=== PATIENT | male | born 1975 | race Two or more races ===

== ENCOUNTER 2020-05-15 07:41 | Outpatient (REF) | payer MEDICARE, MEDICAID, SELFPAY ==
[2020-05-15 10:18] LABS: Alanine Aminotransferase 30 U/L (0-40); Albumin Level 4.2 g/dL (3.5-5.0); Alkaline Phosphatase 69 U/L (39-117); Anion Gap 14 (12-20); Aspartate Amino Transferase 17 U/L (5-37); Bilirubin Total 0.7 mg/dL (0.0-1.0); Blood Urea Nitrogen 17 mg/dL (9-16); Calcium 8.8 mg/dL (8.4-10.2); Carbon Dioxide 25 mmol/L (22-29); Chloride 106 mmol/L (96-108); Cholesterol 165 mg/dL; Estimated Glomerular Filt Rate > 60; Glucose Fasting 240 mg/dL (60-99); HDL Cholesterol 34 mg/dL; LDL Cholesterol Calculated 90 mg/dl; Potassium 4.8 mmol/l (3.3-5.1); Sodium 140 mmol/L (135-145); Total Protein 6.6 g/dL (6.5-8.0); Triglycerides 206 mg/dL
[2020-05-15 10:44] LABS: Creatinine Urine 81.31 mg/dL; Microalbumin Urine < 5.0 mg/L
== END 2020-05-15 07:42 | disposition home or self-care (01) ==
LOC: HO.LAB 07:41
PROVIDERS: PCP Internal Medicine; Visit Provider Internal Medicine
DX: E11.9 Type 2 diabetes mellitus without complications (principal)
CPT/HCPCS: 80053; 80061; 82043

== ENCOUNTER → 2020-05-19 15:04 | Outpatient (BNVA) | payer MEDICARE, MEDICAID, SELFPAY | PROVIDERS: PCP Internal Medicine; Referring Provider Internal Medicine; Visit Provider Internal Medicine Endocrinology, Diabetes & Metabolism | DX: E11.65 Type 2 diabetes mellitus with hyperglycemia (principal); E78.5 Hyperlipidemia, unspecified; I10 Essential (primary) hypertension; E66.9 Obesity, unspecified; Z88.8 Allergy status to other drugs, medicaments and biological substances; Z79.82 Long term (current) use of aspirin; Z79.4 Long term (current) 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; Z79.899 Other long term (current) drug therapy | CPT/HCPCS: 99212 ==

== ENCOUNTER 2020-05-26 16:01 | Emergency (ER) | payer MEDICARE, MEDICAID, SELFPAY ==
[2020-05-26 17:38] VITALS: BP 126/73; PULSE 87; RESP 20; TEMP 36; O2SAT 98; BMI 35.6
--- NOTE | 2020-05-26 18:36 | XR_ITS ---
EXAMINATION: XR KNEE, RIGHT CLINICAL INFORMATION: Pain. COMPARISON: Right knee 01/08/2018 TECHNIQUE: Four views of the right knee. FINDINGS: Bones and soft tissues are normal. No fracture or joint effusion. Alignment is anatomic. Joint spaces are well maintained. No abnormal soft tissue calcification. XR/XR knee RT 2V IMPRESSION: Normal right knee.
[2020-05-26 19:23] VITALS: BP 111/71; PULSE 77; RESP 17; TEMP 36.1; O2SAT 99
--- NOTE | 2020-05-26 19:26 | ED_ITS ---
HPI - Extremity Problem General Chief complaint: Extremity Problem Stated complaint: knee pain Time Seen by Provider: 05/26/20 18:35 Source: patient Mode of arrival: ambulatory Limitations: no limitations History of Present Illness HPI Narrative: States history of chronic right knee pain he had surgery about 20+ years ago received cortisone injections which he has not done so in several months has called orthopedics unable to obtain appointment finally has an appointment on Monday in the meantime having more pain. He denies any calf pain no recent injuries. MD Complaint: extremity pain Onset (ago): month(s) Pain Consistency: intermittent Location: right Quality: aching Radiation: none Relieving factors: immobilization, elevation and other (Knee brace) Exacerbating factors: weight bearing Associated symptoms: denies other symptoms Context: recent travel Related Data Home Medications Medication Instructions Recorded Confirmed aspirin 81 mg tablet,delayed 81 mg PO DAILY 04/11/20 05/19/20 release atorvastatin 80 mg tablet 0 mg PO 04/11/20 05/19/20 blood sugar diagnostic #10 ea 04/11/20 05/19/20 lancets 28 gauge #100 ea 04/11/20 05/19/20 lisinopril 2.5 mg tablet 0 mg PO 04/11/20 05/19/20 metformin 500 mg tablet,extended 1,000 mg PO BID 04/11/20 05/19/20 release 24 hr omeprazole 20 mg capsule,delayed 20 mg PO DAILY 04/11/20 05/19/20 release pen needle, diabetic 32 gauge x #50 ea 04/11/20 05/19/20 sucralfate 100 mg/mL oral 10 ml PO BID 04/11/20 05/19/20 suspension Previous Rx's Medication Instructions Recorded insulin aspart U-100 100 unit/mL See Rx Instructions SUBCUT TID 30 05/19/20 (3 mL) subcutaneous pen Days #30 ml insulin degludec 200 unit/mL (3 80 unit SUBCUT QAM 30 Days #18 ml 05/19/20 mL) subcutaneous pen Allergies Allergy/AdvReac Type Severity Reaction Status Date / Time ibuprofen [From MOTRIN] Allergy Intermediate HIVES, Rash Unverified 04/02/20 15:58 Review of Systems Review of Systems: Constitutional: No Weight loss, No Fever, No Chills ENT/Mouth: No Hearing loss, No Ear Pain, No Nasal Congestion, No Sinus Pain, No Hoarseness, No sore throat, No Rhinorrhea, No Swallowing Difficulty Eyes: No Eye Pain, No Swelling, No Redness, No Foreign Body Cardiovascular: No Chest Pain, No SOB, No Dyspnea on Exertion, No Orthopnea, No Edema, No Palpitations Respiratory: No Cough, No Sputum, No Wheezing, No Smoke Exposure, No Dyspnea Gastrointestinal: No Nausea, No Vomiting, No Diarrhea, No Constipation, No abdominal Pain, No Hematochezia, No Melena Genitourinary: no irregular bleeding, No Dysuria, No Urinary Frequency, No Hematuria, No Urinary Incontinence, No Urgency, No Flank Pain, No Urinary Flow Changes, No Hesitancy Musculoskeletal: No joint pain, No Myalgias, No Joint Swelling Skin: No Skin Lesions, No rash Neuro: No Weakness, No Numbness, No Paresthesias, No Loss of Consciousness, No Dizziness, No Headache Psych: No Anxiety/Panic, No Depression, No SI/HI/AH/VH, No Social Issues, Heme/Lymph: No Bruising, No Bleeding,No Lymphadenopathy Endocrine: No Polyuria, No Polydipsia, No Temperature Intolerance Yes all other systems are reviewed and are negative [facility] Past Medical History Medical History (Updated 05/26/20 @ 19:27 by Stan Orozco NP) Diabetes type 2, uncontrolled Dyslipidemia 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 Obesity (BMI 30-39.9) Surgical History History of ear surgery History of surgery on arm Hx of colonoscopy Hx of esophagogastroduodenoscopy Hx of knee surgery Family History Family History (Updated 05/18/20 @ 12:16 by Xochitl Contreras LPN) Father Diabetes Mother Diabetes Social History Social History (Updated 05/18/20 @ 12:17 by Xochitl Contreras LPN) Smoking Status: Never smoker Use of substances other than those prescribed or required for medical reasons: Yes Substance Use Type: Marijuana Advance Directives: No Advance Directives Information Provided: No Physical Exam Vital Signs: Vital Signs: Last Vital Signs Temp 97.0 F 05/26/20 19:23 Pulse 77 05/26/20 19:23 Resp 17 05/26/20 19:23 BP 111/71 05/26/20 19:23 Pulse Ox 99 05/26/20 19:23 Body Mass Index 35.6 Reviewed Const: General: cooperative and healthy appearing; No acute distress or intoxicated appearing Nutritional Appearance: average body habitus Orientation/consciousness: patient oriented x3 HENMT: Head: Yes normal to inspection Ears: hearing grossly normal bilaterally Eyes: General: appearance normal, both eyes and all related structures Visual Richardson: normal visual richardson by confrontation Chest: Chest palpation & inspection: normal inspection of the chest Resp: Effort & Inspection: normal respiratory effort Cardio: Jugular venous distension: no JVD Skin: General skin exam: no rashes or lesions noted Neuro: General: patient oriented x3 Extrem: Other: Negative Homans Negative drawer test General: Yes normal to inspection Left lower extremity: normal to inspection, full ROM and normal capillary refill MDM - Extremity (Nontraumatic) Imaging Data Knee pain: Radiologist's impression: [address] [address] XRay Report Signed Patient: Onesimo Orta DMR#: [id number] : 1975Acct:[id number] Age/Sex: 44 / MADM Date: 05/26/20 Loc: .ED Attending Dr: Ordering Physician: Stan Orozco NP Date of Service: 05/26/20 Procedure(s): XR knee RT 2V Accession Number(s): [id number] cc: Stan Orozco NP~ EXAMINATION: XR KNEE, RIGHT CLINICAL INFORMATION: Pain. COMPARISON: Right knee 01/08/2018 TECHNIQUE: Four views of the right knee. FINDINGS: Bones and soft tissues are normal. No fracture or joint effusion. Alignment is anatomic. Joint spaces are well maintained. No abnormal soft tissue calcification. XR/XR knee RT 2V IMPRESSION: Normal right knee. Dictated By:JOE PHOENIX MD Signed By:<Electronically signed by JOE PHOENIX MD in OV>05/26/201906 DD/ 35 TD/TT: Extras Casting Director: MARCY Discharge Plan Discharge Clinical Impression: Arthralgia Qualifiers: Joint pain location: knee Laterality: right Qualified Code(s): M25.561 - Pain in right knee Patient Disposition: Home, Self-Care Instructions: Arthralgia (ED) Additional Instructions: Supportive brace as reviewed Use her cane as instructed Naproxen or acetaminophen [id number] per label instructions Follow up with her orthopedics for further evaluation today Treat any concerns or worsening symptoms Thank you Prescriptions: No Action insulin degludec 200 unit/mL (3 mL) insulin pen 80 unit subcut QAM 30 Days Qty: 18 RF: 4 insulin aspart U-100 100 unit/mL (3 mL) insulin pen See Rx Instructions subcut TID 30 Days Qty: 30 RF: 4 omeprazole 20 mg capsule,delayed release(DR/EC) 20 mg PO DAILY RF: 0 (DME) lancets 28 gauge misc See Rx Instructions ea topical QID Qty: 100 RF: 0 (DME) pen needle, diabetic 32 gauge x 5/32 needle See Rx Instructions ea subcut .MEDSUPPLY Qty: 50 RF: 0 (DME) FreeStyle Lite Strips Strip See Rx Instructions ea Not Applicable QID Qty: 10 RF: 0 lisinopril 2.5 mg tablet 0 mg PO RF: 0 atorvastatin 80 mg tablet 0 mg PO RF: 0 metformin 500 mg tablet extended release 24 hr 1,000 mg PO BID RF: 0 aspirin 81 mg tablet,delayed release (DR/EC) 81 mg PO DAILY RF: 0 sucralfate 100 mg/mL suspension 10 ml PO BID RF: 0 Referrals: Chris Ashby MD [Physician] - 1 week Stand Alone Forms: Work/School Release
== END 2020-05-26 20:00 | disposition home or self-care (01) ==
PROVIDERS: Emergency Provider Emergency Medicine; PCP Internal Medicine
DX: M25.561 Pain in right knee (principal); I10 Essential (primary) hypertension; Z79.899 Other long term (current) drug therapy
CPT/HCPCS: 73560; 99283; 99284

== ENCOUNTER → 2020-05-28 13:03 | Outpatient (BNVA) | payer MEDICARE, MEDICAID, SELFPAY | PROVIDERS: PCP Internal Medicine; Visit Provider Orthopaedic Surgery | DX: M17.11 Unilateral primary osteoarthritis, right knee (principal); M25.461 Effusion, right knee | CPT/HCPCS: 20610; 99212; J1100 ==

== ENCOUNTER → 2020-07-01 15:38 | Outpatient (BNVA) | payer MEDICARE, MEDICAID, SELFPAY | PROVIDERS: Visit Provider Internal Medicine | DX: J45.909 Unspecified asthma, uncomplicated (principal); G47.33 Obstructive sleep apnea (adult) (pediatric); E66.9 Obesity, unspecified; Z68.36 Body mass index [BMI] 36.0-36.9, adult; Z79.51 Long term (current) use of inhaled steroids; Z71.3 Dietary counseling and surveillance | CPT/HCPCS: 99212 ==

== ENCOUNTER → 2020-09-02 15:18 | Outpatient (BNVA) | payer MEDICARE, MEDICAID, SELFPAY | PROVIDERS: PCP Internal Medicine; Visit Provider Internal Medicine | DX: E66.9 Obesity, unspecified (principal); J45.909 Unspecified asthma, uncomplicated; G47.33 Obstructive sleep apnea (adult) (pediatric) | CPT/HCPCS: 99212 ==

== ENCOUNTER → 2021-01-26 14:55 | Outpatient (BNVA) | payer OTHER, SELFPAY | PROVIDERS: PCP Internal Medicine; Visit Provider Internal Medicine Endocrinology, Diabetes & Metabolism | DX: E11.65 Type 2 diabetes mellitus with hyperglycemia (principal); E78.5 Hyperlipidemia, unspecified; E66.9 Obesity, unspecified; I10 Essential (primary) hypertension; Z79.4 Long term (current) 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 | CPT/HCPCS: 82947; 99212 ==

== ENCOUNTER → 2021-01-28 14:03 | Outpatient (BNVA) | payer OTHER, SELFPAY | PROVIDERS: Visit Provider Orthopaedic Surgery | DX: M79.603 Pain in arm, unspecified (principal) | CPT/HCPCS: 99212 ==

== ENCOUNTER 2021-02-05 05:57 | Outpatient (REF) | payer OTHER, SELFPAY ==
[2021-02-05 06:59] LABS: MANUAL DIFF FLAG NO
[2021-02-05 07:15] LABS: Basophils Percent Auto 0.8 % (0-2); Eosinophils Absolute Auto 0.1 X10*3/uL (0.0-0.4); Eosinophils Percent Auto 2.8 % (0-4); Hematocrit 45.9 % (42-52); Imm Gran Abs Auto 0.01 X10*3/uL (0.00-0.03); Imm Gran Pct Auto 0.2 % (0.0-0.4); Lymphocytes Absolute Auto 1.4 X10*3/uL (1.2-4.9); Lymphocytes Percent Auto 27.7 % (20-40); Mean Corpuscular HGB Conc 32.7 g/dl (31.0-36.0); Mean Corpuscular Hemoglobin 28.6 pg (27.0-33.0); Mean Corpuscular Volume 87.6 fL (80-98); Mean Platelet Volume 12.2 fL (9.4-12.4); Monocytes Absolute Auto 0.5 X10*3/uL (0.1-1.2); Neutrophils Absolute Auto 2.9 X10*3/uL (2.0-8.3); Neutrophils Percent Auto 58.5 % (45-73); Platelet Count 184 X10*3/uL (160-400); Red Blood Count 5.24 X10*6/uL (4.60-5.80); Red Cell Distribution Width 12.5 % (11.0-16.0)
[2021-02-05 08:06] LABS: Alanine Aminotransferase 23 U/L (0-40); Albumin Level 3.9 g/dL (3.5-5.0); Alkaline Phosphatase 76 U/L (39-117); Anion Gap 12 (12-20); Aspartate Amino Transferase 16 U/L (5-37); Bilirubin Direct 0.2 mg/dL (0.0-0.5); Bilirubin Total 0.4 mg/dL (0.0-1.0); Blood Urea Nitrogen 11 mg/dL (9-16); Calcium 9.5 mg/dL (8.4-10.2); Carbon Dioxide 27 mmol/L (22-29); Chloride 108 mmol/L (96-108); Cholesterol 137 mg/dL; Estimated Glomerular Filt Rate > 60; Glucose Random 181 mg/dL (60-115); HDL Cholesterol 29 mg/dL; LDL Cholesterol Calculated 85 mg/dl; Magnesium 1.7 mg/dL (1.6-2.6); Potassium 4.5 mmol/L (3.3-5.1); Sodium 142 mmol/L (135-145); Total Protein 6.3 g/dL (6.5-8.0); Triglycerides 118 mg/dL
[2021-02-05 08:12] LABS: Estimated Average Glucose 280 mg/dL; Hemoglobin A1c % 11.4 %
[2021-02-05 08:18] LABS: Thyroid Stimulating Hormone 1.32 uIU/mL (0.32-4.0)
== END 2021-02-05 05:58 | disposition home or self-care (01) ==
LOC: HO.LAB 05:57
PROVIDERS: PCP Internal Medicine; Visit Provider Internal Medicine Cardiovascular Disease
DX: I50.42 Chronic combined systolic (congestive) and diastolic (congestive) heart failure (principal); E11.9 Type 2 diabetes mellitus without complications; E78.2 Mixed hyperlipidemia
CPT/HCPCS: 36415; 80048; 80061; 80076; 83036; 83735; 84443; 85025

== ENCOUNTER → 2021-02-08 15:40 | Outpatient (BNVA) | payer OTHER, SELFPAY | PROVIDERS: PCP Internal Medicine; Visit Provider Internal Medicine | DX: E66.9 Obesity, unspecified (principal); G47.33 Obstructive sleep apnea (adult) (pediatric); J45.909 Unspecified asthma, uncomplicated | CPT/HCPCS: 99212 ==

== ENCOUNTER → 2021-06-03 15:30 | Outpatient (BNVA) | payer OTHER, SELFPAY | PROVIDERS: PCP Internal Medicine; Visit Provider Internal Medicine | DX: J45.40 Moderate persistent asthma, uncomplicated (principal); G47.33 Obstructive sleep apnea (adult) (pediatric); E11.65 Type 2 diabetes mellitus with hyperglycemia; E78.5 Hyperlipidemia, unspecified; K21.9 Gastro-esophageal reflux disease without esophagitis; E66.9 Obesity, unspecified; Z68.36 Body mass index [BMI] 36.0-36.9, adult; Z83.3 Family history of diabetes mellitus; Z88.8 Allergy status to other drugs, medicaments and biological substances; Z79.4 Long term (current) 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; Z79.84 Long term (current) use of oral hypoglycemic drugs; Z79.899 Other long term (current) drug therapy | CPT/HCPCS: 99212 ==

== ENCOUNTER → 2021-06-04 07:09 | Outpatient (BNVA) | payer OTHER, SELFPAY | PROVIDERS: PCP Internal Medicine; Visit Provider Nurse Practitioner Gerontology | DX: E11.65 Type 2 diabetes mellitus with hyperglycemia (principal); E78.5 Hyperlipidemia, unspecified; E66.9 Obesity, unspecified; I10 Essential (primary) hypertension; Z79.4 Long term (current) 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 | CPT/HCPCS: 82947; 99212 ==

== ENCOUNTER → 2021-07-12 14:46 | Outpatient (BNVA) | payer OTHER, SELFPAY | PROVIDERS: PCP Internal Medicine; Visit Provider Registered Nurse Diabetes Educator | DX: E11.65 Type 2 diabetes mellitus with hyperglycemia (principal); Z79.4 Long term (current) 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 | CPT/HCPCS: 99211 ==

== ENCOUNTER → 2021-07-27 08:47 | Outpatient (BNVA) | payer OTHER, SELFPAY | PROVIDERS: PCP Internal Medicine; Visit Provider Registered Nurse Diabetes Educator | DX: E11.65 Type 2 diabetes mellitus with hyperglycemia (principal) | CPT/HCPCS: 99211 ==

== ENCOUNTER 2021-09-08 06:02 | Outpatient (REF) | payer OTHER, SELFPAY ==
--- NOTE | ~2021-09-08 | XR_ITS ---
EXAMINATION: XR KNEES, STANDING AP XR KNEE, RIGHT CLINICAL INFORMATION: Right knee pain COMPARISON: Radiographs right knee 05/26/2020, 01/07/2018 TECHNIQUE: Standing AP view of both knees is performed along with lateral and axial patella views of the right knee. FINDINGS: Right: There is moderate suprapatellar effusion. Hoffa's fat pad appears normal. Bony mineralization is normal. There is no fracture or dislocation or destructive process. There is borderline narrowing medial knee joint compartment. No subchondral sclerosis or erosive change. No visible chondrocalcinosis. There is lateral spurring of the patella. Left: Borderline narrowing medial knee joint compartment. No subchondral sclerosis or erosive change or chondrocalcinosis. Normal bony mineralization. XR/XR knee standing BI IMPRESSION: Right: -Moderate suprapatellar effusion. -Borderline narrowing medial knee joint compartment. -Lateral patellar spur. Left: -Borderline narrowing medial knee joint compartment.
--- NOTE | ~2021-09-08 | XR_ITS ---
EXAMINATION: XR KNEES, STANDING AP XR KNEE, RIGHT CLINICAL INFORMATION: Right knee pain COMPARISON: Radiographs right knee 05/26/2020, 01/07/2018 TECHNIQUE: Standing AP view of both knees is performed along with lateral and axial patella views of the right knee. FINDINGS: Right: There is moderate suprapatellar effusion. Hoffa's fat pad appears normal. Bony mineralization is normal. There is no fracture or dislocation or destructive process. There is borderline narrowing medial knee joint compartment. No subchondral sclerosis or erosive change. No visible chondrocalcinosis. There is lateral spurring of the patella. Left: Borderline narrowing medial knee joint compartment. No subchondral sclerosis or erosive change or chondrocalcinosis. Normal bony mineralization. XR/XR knee RT 2V IMPRESSION: Right: -Moderate suprapatellar effusion. -Borderline narrowing medial knee joint compartment. -Lateral patellar spur. Left: -Borderline narrowing medial knee joint compartment.
== END 2021-09-08 06:03 | disposition home or self-care (01) ==
LOC: HO.HOSX 06:02
PROVIDERS: Visit Provider Physician Assistant
DX: M25.561 Pain in right knee (principal); M25.461 Effusion, right knee; M25.562 Pain in left knee
CPT/HCPCS: 20610; 73560; 73565; 87071; 87073; 87205; 89060; 99212; J1020

== ENCOUNTER → 2021-09-17 07:20 | Outpatient (BNVA) | payer OTHER, SELFPAY | PROVIDERS: PCP Internal Medicine; Visit Provider Nurse Practitioner Gerontology | DX: E11.65 Type 2 diabetes mellitus with hyperglycemia (principal); E78.5 Hyperlipidemia, unspecified; I10 Essential (primary) hypertension; E66.9 Obesity, unspecified; Z79.4 Long term (current) 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; Z68.36 Body mass index [BMI] 36.0-36.9, adult | CPT/HCPCS: 82947; 99212 ==

== ENCOUNTER → 2021-09-20 12:00 | Outpatient (BNVA) | payer OTHER, SELFPAY | PROVIDERS: PCP Internal Medicine; Visit Provider Registered Nurse Diabetes Educator | DX: E11.65 Type 2 diabetes mellitus with hyperglycemia (principal) | CPT/HCPCS: 99211 ==

== ENCOUNTER 2021-10-04 13:35 | Outpatient (REF) | payer OTHER, SELFPAY ==
[2021-10-04 15:21] LABS: Anion Gap 13 (12-20); Blood Urea Nitrogen 14 mg/dL (9-16); Calcium 9.6 mg/dL (8.4-10.2); Carbon Dioxide 27 mmol/L (22-29); Chloride 102 mmol/L (96-108); Estimated Glomerular Filt Rate > 60; Potassium 4.9 mmol/L (3.3-5.1); Sodium 137 mmol/L (135-145)
[2021-10-04 15:43] LABS: Glucose Random 407 mg/dL (60-115)
== END 2021-10-04 13:36 | disposition home or self-care (01) ==
LOC: HO.LAB 13:35
PROVIDERS: PCP Internal Medicine; Visit Provider Nurse Practitioner Family
DX: E78.2 Mixed hyperlipidemia (principal); I11.0 Hypertensive heart disease with heart failure; I50.42 Chronic combined systolic (congestive) and diastolic (congestive) heart failure
CPT/HCPCS: 36415; 80048

== ENCOUNTER → 2021-10-20 15:17 | Outpatient (BNVA) | payer OTHER, SELFPAY | PROVIDERS: PCP Internal Medicine; Visit Provider Physician Assistant | DX: M10.9 Gout, unspecified (principal) | CPT/HCPCS: 99212 ==

== ENCOUNTER → 2021-10-25 14:30 | Outpatient (BNVA) | payer OTHER, SELFPAY | PROVIDERS: PCP Internal Medicine; Visit Provider Physician Assistant | DX: Z13.89 Encounter for screening for other disorder (principal) | CPT/HCPCS: Q3014 ==

== ENCOUNTER → 2021-11-24 15:31 | Outpatient (BNVA) | payer OTHER, SELFPAY | PROVIDERS: PCP Internal Medicine; Visit Provider Internal Medicine | DX: G47.33 Obstructive sleep apnea (adult) (pediatric) (principal); J45.40 Moderate persistent asthma, uncomplicated; E66.9 Obesity, unspecified; Z68.35 Body mass index [BMI] 35.0-35.9, adult | CPT/HCPCS: 99212 ==

== ENCOUNTER → 2021-11-26 07:43 | Outpatient (BNVA) | payer OTHER, SELFPAY | PROVIDERS: PCP Internal Medicine; Visit Provider Registered Nurse Diabetes Educator | DX: E11.65 Type 2 diabetes mellitus with hyperglycemia (principal) | CPT/HCPCS: 99211 ==

== ENCOUNTER 2022-01-31 06:19 | Outpatient (REF) | payer OTHER, SELFPAY ==
[2022-01-31 07:55] LABS: Anion Gap 12 (12-20); Blood Urea Nitrogen 15 mg/dL (9-16); Calcium 9.2 mg/dL (8.4-10.2); Carbon Dioxide 23 mmol/L (22-29); Chloride 110 mmol/L (96-108); Estimated Glomerular Filt Rate > 60; Glucose Random 194 mg/dL (60-115); Potassium 4.7 mmol/L (3.3-5.1); Sodium 140 mmol/L (135-145)
== END 2022-01-31 06:20 | disposition home or self-care (01) ==
LOC: HO.LAB 06:19
PROVIDERS: Nurse Practitioner Family; Absent Provider Nurse Practitioner Gerontology; PCP Physician Assistant; Visit Provider Physician Assistant
DX: E78.2 Mixed hyperlipidemia (principal); I50.42 Chronic combined systolic (congestive) and diastolic (congestive) heart failure; I10 Essential (primary) hypertension
CPT/HCPCS: 36415; 80048

== ENCOUNTER → 2022-08-02 15:25 | Outpatient (BNVA) | payer OTHER, SELFPAY | PROVIDERS: PCP Physician Assistant; Visit Provider Internal Medicine | DX: R06.00 Dyspnea, unspecified (principal); J45.40 Moderate persistent asthma, uncomplicated; G47.33 Obstructive sleep apnea (adult) (pediatric); E66.9 Obesity, unspecified; Z68.37 Body mass index [BMI] 37.0-37.9, adult; Z86.16 Personal history of COVID-19 | CPT/HCPCS: 99212 ==

== ENCOUNTER 2023-01-25 14:45 | Outpatient (AMB) | payer OTHER, SELFPAY ==
[2023-01-25 14:47] VITALS: BP 108/64; PULSE 87; O2SAT 95; BMI 35.8
--- NOTE | 2023-01-25 14:47 | MHC.PC.OV ---
Vital Signs 01/25/23 14:47 Height 5 ft 9.5 in Weight 246 lb BMI 35.8 BP 108/64 Blood Pressure Location Lt brachial Position Sitting Pulse 87 Pulse Source Pulse Oximeter Pulse Oximetry (%) 95 Oxygen Delivery Method Room Air Intake Visit Reasons: f/u DMII Intake Note: Pt c/o: needs a refill on metformin and concerned that A1C will be high as his sugars have been at home Screwmaker Automatic Required: No Accompanied by: Self / Same As Patient Allergies ibuprofen [From MOTRIN] Allergy (Intermediate, Verified 01/25/23 14:57) HIVES, Rash Medication List - Last Reconciled 01/25/23 by Deejay Gonzalez PA-C albuterol sulfate 90 mcg/actuation 2 puffs inhalation Q4-6H PRN aspirin (Adult Aspirin Regimen) 81 mg PO DAILY 90 days atorvastatin 80 mg PO BEDTIME 90 days blood sugar diagnostic (FreeStyle Lite Strips) As directed four times a day blood-glucose meter (FreeStyle Lite Meter kit) As directed 3x/day dapagliflozin propanediol (Farxiga) 10 mg PO DAILY flash glucose scanning reader ([employer] Lana 2 Watson) As directed insulin aspart U-100 (Novolog FlexPen U-100 Insulin aspart) 25 - 45 units (0.25 - 0.45 mL) subcut TID 30 days insulin degludec (Tresiba FlexTouch U-200 insulin) 100 units (0.5 mL) subcut DAILY 30 days lancets (FreeStyle Lancets) Three times a day metformin ER 1,000 mg (2 x 500 mg) PO BID methylcellulose (laxative) (Citrucel) 500 mg PO TID metoprolol succinate ER 100 mg PO DAILY 90 days omeprazole 20 mg PO DAILY peg 3350-electrolytes 236-22.74-6.74 -5.86 gram 240 mL PO Q10M 1 day NS pen needle, diabetic (BD Ultra-Fine Billie Pen Needle) 1 ea subcut QID 30 days polyethylene glycol 3350 (Miralax) 17 grams PO DAILY sacubitril-valsartan 49-51 mg (Entresto) 0.5 tabs PO BID spironolactone 25 mg PO DAILY Tobacco use date assessed: 07/21/22 HPI f/u DMII HPI Details Patient is a 47-year-old male here today for follow-up visit? Patient has a past medical history significant for diabetes, GERD, obesity,? systolic heart failure, asthma, mild obstructive sleep apnea, hyperlipidemia. .. Type 2 diabetes:? Was followed by endocrinology though unfortunately provider as left.? Now needs PCP to manage his diabetes with his fairly high doses of insulin therapy.? Unfortunately has been out of metformin and has reduced his dose due to not getting enough from pharmacy. Usual dose of metformin is a 1000 b.i.d.. He does report recently having high blood sugars and does report polydipsia and polyuria. // Asthma:? 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 Continues on maintenance inhaler and daily basis. .. CHF:? Patient is followed by event designer (dr. Lozano) and recently started on spironolactone. From a cardiovascular point of view has been stable.? He denies any chest discomforts, shortness of breath or rapid weight gain.? He does get by annual echocardiograms. 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 Obesity (BMI 30-39.9) CHRIS (obstructive sleep apnea) Patellofemoral arthritis of right knee Surgical History History of ear surgery History of surgery on arm Hx of colonoscopy Hx of esophagogastroduodenoscopy Hx of knee surgery Hx of rotator cuff surgery Family History Father Diabetes Mother Diabetes Social History Housing: Apartment Alcohol intake: never Patient Tobacco Use Status: Former Tobacco user Quit Date: 2006 Tobacco use type: Cigarette e-Cigarette/Vaping Use: Never Used Second Hand Smoke Exposure: No Substance Use Type: Marijuana service: No Current occupational status: disabled Current occupational exposures/hazards: No Cognitive needs: No Hearing needs: Yes (hearing aide) Vision needs: No Questionnaire Thrive Questionnaire Date Thrive assessed: 07/21/22 BERNADETTE-7 AMB Questionnaire BERNADETTE-7 Date BERNADETTE - 7 assessed: 07/21/22 Source: Developed by Drs. Adarsh Beatty, Adina Faria, Tano Martinez and colleagues, with an educational oscar from [employer]. Review of Systems Const Denies headache(s) Eyes Denies loss of vision ENT Denies vertigo, Denies dizziness, Denies headache(s) and Denies sore throat Card Denies chest pain, Denies leg edema and Denies lightheadedness Resp Denies cough, Denies hemoptysis and Denies wheezing GI Denies abdominal pain, Denies melena, Denies constipation, Denies diarrhea and Denies vomiting Denies dysuria, Denies urinary frequency and Denies urinary urgency Musc Denies arthralgias, Denies joint swelling, Denies numbness and Denies tingling Neuro Denies Abnormal speech present, Denies behavioral changes, Denies vertigo, Denies dizziness, Denies headache(s), Denies loss of vision, Denies memory loss, Denies numbness and Denies tingling Psych Denies anxiety, Denies behavioral changes, Denies depression, Denies memory loss and Denies panic attacks Rocky/Lymph Denies easy bleeding and Denies easy bruising Aller/Immun Denies wheezing Physical exam (Primary Care) Vital Signs: Last Vital Signs Pulse 87 01/25/23 14:47 BP 108/64 01/25/23 14:47 Pulse Ox 95 01/25/23 14:47 Oxygen Delivery Method Room Air 01/25/23 14:47 BMI result Body Mass Index 35.8 BMI Assessment/Plan discussion: High Tobacco/Smoking Status: Tobacco use Status Tobacco use date assessed 07/21/22 01/25/23 14:50 Patient Tobacco Use Status Former Tobacco user 01/25/23 14:50 Tobacco use type Cigarette 01/25/23 14:50 e-Cigarette/Vaping Use Never Used 01/25/23 14:50 Thrive Assessment: Date of Thrive Assessment Date Thrive assessed 07/21/22 01/25/23 14:50 Const Other: OBESE General: healthy appearing, no acute distress, alert and awake Nutritional Appearance: well nourished Orientation/consciousness: oriented to person, oriented to place and oriented to time HENMT Ears: TM's normal bilaterally General nose exam: Normal nasal mucous membranes and turbinates present Eyes Conjunctivae: conjunctivae normal Sclerae: sclerae normal Pupils: Equal, round and reactive pupils present Neck Neck: Yes no lymphadenopathy and Yes no JVD Thyroid: Thyroid normal Carotids: no bruits Resp Effort & Inspection: normal respiratory effort and not tachypneic Auscultation: no crackles, no rales, no rhonchi and no wheezes Cardio Rate: regular rate Rhythm: regular rhythm Heart sounds: no murmurs and normal S1 and S2 GI Palpation (GI): Soft to palpation, nontender, no hepatomegaly and no splenomegaly Auscultation: normal bowel sounds Skin General skin exam: no rashes or lesions noted and dry skin Neuro General: oriented to person, oriented to place and oriented to time Cranial nerves: Yes Equal, round and reactive pupils present Speech: No Abnormal speech present Gait exam (Neuro): Normal gait present Motor exam (neuro): no tremor noted Extrem Right upper extremity: full ROM Left upper extremity: full ROM Right lower extremity: full ROM; no edema Left lower extremity: full ROM; no edema Psych Mental Status: mental status grossly normal Speech and movement: Normal speech and movement present Affect: normal affect Attitude: cooperative Thought process: Normal thought process present Results AMB Hemoglobin A1c AMB Hemoglobin A1c 11.2 % Last Edit by Lilibeth Davis CMA on 01/25/23 15:00 Assessment and Plan Assessment & Plan (1) CHF (congestive heart failure), NYHA class II: Code(s): I50.9 - Heart failure, unspecified Qualifiers: Congestive heart failure chronicity: chronic Congestive heart failure type: systolic Qualified Code(s): I50.22 - Chronic systolic (congestive) heart failure Plan: Patient continues to follow cardiology. Most recently started on spironolactone 25 mg. Clinically and symptomatic and euvolemic here today in office. (2) Diabetes type 2, uncontrolled: Code(s): E11.65 - Type 2 diabetes mellitus with hyperglycemia Qualifiers: Glycemic state: with hyperglycemia Qualified Code(s): E11.65 - Type 2 diabetes mellitus with hyperglycemia Plan: Patient's type 2 diabetes uncontrolled. Today's A1c 11.2 from 8.6. Patient has been out of metformin and needs refill. Will restart metformin 1000 b.i.d. along with his Farxiga, Tresiba 100 U, NovoLog 25-45 units. Will try to reestablish care with endocrinology as he has been on high doses of insulin and still diabetes difficult to control. 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 Will continues current dose of antihypertensive medication with goal blood pressure to be below 140/90 (5) Dyslipidemia: Code(s): E78.5 - Hyperlipidemia, unspecified Plan: Patient continues on high potency statin. Advised to get fasting lipids done as soon as possible to evaluate for an appropriate LDL. Goal to LDL to be below 100 (6) Colon cancer screening: Code(s): Z12.11 - Encounter for screening for malignant neoplasm of colon (7) Tubular adenoma of colon: Code(s): D12.6 - Benign neoplasm of colon, unspecified Plan: Patient does have history of tubular adenoma polyp in the cecum, has not been able to get an appointment for colonoscopy thus will place new referral to [facility] (8) Obese: Code(s): E66.9 - Obesity, unspecified Qualifiers: Obesity type: due to excess calories Obesity classification: adult class 2 (BMI 35 - 39.9) Serious obesity comorbidity presence: with serious comorbidity Body mass index: BMI 35.0-35.9 Qualified Code(s): E66.01 - Morbid (severe) obesity due to excess calories; Z68.35 - Body mass index [BMI] 35.0-35.9, adult Plan: Patient does understand his BMI is over 30 will work on being more physically active and adapting to better eating habits to reduce his weight. Orders: Orders Prostate Specific Antigen Scr Today Z12.5 - Encounter for screening for malignant neoplasm of prostate AMB Hemoglobin A1c Today Z13.9 - Encounter for screening, unspecified Referrals Gastroenterology Referral D12.6 - Benign neoplasm of colon, unspecified, Z12.11 - Encounter for screening for malignant neoplasm of colon Endocrinology Referral E11.65 - Type 2 diabetes mellitus with hyperglycemia Medications: Changed From metformin ER 1,000 mg (2 x 500 mg) PO BID 120 caps 3RF E11.65 - Type 2 diabetes mellitus with hyperglycemia To metformin ER 1,000 mg (2 x 500 mg) PO BID 90 days 360 caps 3RF E11.65 - Type 2 diabetes mellitus with hyperglycemia Coding Level of Care Code Est Pt Level 4 (32985) Diagnoses CHF (congestive heart failure), NYHA class II I50.22 Congestive heart failure chronicity: chronic Congestive heart failure type: systolic Diabetes type 2, uncontrolled E11.65 Glycemic state: with hyperglycemia 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
== END 2023-01-25 15:23 | disposition home or self-care (01) ==
PROVIDERS: Visit Provider Physician Assistant
DX: I11.0 Hypertensive heart disease with heart failure (principal); I50.22 Chronic systolic (congestive) heart failure; E11.65 Type 2 diabetes mellitus with hyperglycemia; Z79.4 Long term (current) 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; E66.01 Morbid (severe) obesity due to excess calories; Z68.35 Body mass index [BMI] 35.0-35.9, adult; E78.5 Hyperlipidemia, unspecified; Z12.11 Encounter for screening for malignant neoplasm of colon; D12.6 Benign neoplasm of colon, unspecified
CPT/HCPCS: 83036; 99214

== ENCOUNTER 2023-02-08 15:46 | Outpatient (AMB) | payer OTHER, SELFPAY ==
--- NOTE | 2023-02-08 15:59 | MHC.OFFVIS ---
Intake Vital Signs 02/08/23 16:00 Height 5 ft 9 in Weight 248 lb 0.321 oz BMI 36.6 BP 128/60 Blood Pressure Location Lt brachial Position Sitting Pulse 80 Pulse Source Pulse Oximeter Pulse Oximetry (%) 96 Oxygen Delivery Method Room Air Intake Visit Reasons: Dyspnea Allergies ibuprofen [From MOTRIN] Allergy (Intermediate, Verified 02/08/23 16:15) HIVES, Rash Medication List - Last Reconciled 02/08/23 by Glen Reynolds MD albuterol sulfate 90 mcg/actuation 2 puffs inhalation Q4-6H PRN aspirin (Adult Aspirin Regimen) 81 mg PO DAILY 90 days atorvastatin 80 mg PO BEDTIME 90 days blood sugar diagnostic (FreeStyle Lite Strips) As directed four times a day blood-glucose meter (CaternaStyle Lite Meter kit) As directed 3x/day dapagliflozin propanediol (Farxiga) 10 mg PO DAILY flash glucose scanning reader (SpotMe Lana 2 [place]) As directed insulin aspart U-100 (Novolog FlexPen U-100 Insulin aspart) 25 - 45 units (0.25 - 0.45 mL) subcut TID 30 days insulin degludec (Tresiba FlexTouch U-200 insulin) 100 units (0.5 mL) subcut DAILY 30 days lancets (FreeStyle Lancets) Three times a day metformin ER 1,000 mg (2 x 500 mg) PO BID 90 days methylcellulose (laxative) (Citrucel) 500 mg PO TID metoprolol succinate ER 100 mg PO DAILY 90 days omeprazole 20 mg PO DAILY peg 3350-electrolytes 236-22.74-6.74 -5.86 gram 240 mL PO Q10M 1 day NS pen needle, diabetic (BD Ultra-Fine Billie Pen Needle) 1 ea subcut QID 30 days polyethylene glycol 3350 (Miralax) 17 grams PO DAILY sacubitril-valsartan 49-51 mg (Entresto) 0.5 tabs PO BID spironolactone 25 mg PO DAILY Do you need a note to return to daycare/school/sports/work: No HPI Dyspnea HPI Details THIS 47 YEARS OLD GENTLEMAN IS HERE FOR FOLLOW-UP FOR HIS BRONCHIAL ASTHMA. HE CLAIMS THAT FOR THE LAST 2 MONTHS HE HAS NOT USED ANY INHALER, AND HIS BREATHING IS GOOD. HE USED TO BE ON FLOVENT AND SEREVENT , BUT RAN OUT 2 MONTHS AGO AND HE HAS HAD NO NEED TO USE THEM. DENIES ANY COUGH WHEEZING OR SHORTNESS OF BREATH. HE REMAINS OVERWEIGHT, BUT DENIES ANY SYMPTOMS OF SLEEP APNEA. HE SAY IS VERY CLEARLY THAT HE SLEEPS GOOD AND DOES NOT HAVE MUCH SNORING. HE HAS QUIT SMOKING SINCE ABOUT 7 MONTHS AGO. REPLACED BY [facility] Medical History Acid reflux Asthma Cardiomyopathy Diabetes type 2, uncontrolled Dyslipidemia Effusion, right knee GERD (gastroesophageal reflux disease) Gout of right knee History of [place] (myocardial infarction) Hypertension assisted (current) 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 Obesity (BMI 30-39.9) CHRIS (obstructive sleep apnea) Patellofemoral arthritis of right knee Surgical History History of ear surgery History of surgery on arm Hx of colonoscopy Hx of esophagogastroduodenoscopy Hx of knee surgery Hx of rotator cuff surgery Family History Father Diabetes Mother Diabetes Social History Housing: Apartment Alcohol intake: never Patient Tobacco Use Status: Former Tobacco user Quit Date: 2006 Tobacco use type: Cigarette e-Cigarette/Vaping Use: Never Used Second Hand Smoke Exposure: No Substance Use Type: Marijuana service: No Current occupational status: disabled Current occupational exposures/hazards: No Cognitive needs: No Hearing needs: Yes (hearing aide) Vision needs: No Review of Systems Const All systems reviewed & are unremarkable except as noted in HPI and below Denies snoring Eyes Reports no additional complaints ENT Reports no additional complaints Card Denies chest pain, Denies irregular heart rhythm and Denies leg edema Resp Reports cough, Denies snoring and Denies wheezing GI Reports heartburn (Acid reflux problem controlled with med) Reports no additional complaints Musc Reports no additional complaints Skin/Breast Reports system reviewed and no additional complaints, except as documented Neuro Reports no additional complaints Psych Reports no additional complaints Aller/Immun Denies wheezing Physical Exam Vital Signs: Last Vital Signs Pulse 80 02/08/23 16:00 BP 128/60 02/08/23 16:00 Pulse Ox 96 02/08/23 16:00 Oxygen Delivery Method Room Air 02/08/23 16:00 BMI result Body Mass Index 36.6 Const General: healthy appearing (EXCEPT FOR BEING OVERWEIGHT.), comfortable, no acute distress, alert and awake Orientation/consciousness: patient oriented x3 HEENT Head: Yes normal to inspection General nose exam: No nasal polyps present and No nasal discharge present Face and sinus: Yes sinuses nontender Mouth: oropharynx normal Throat: Yes posterior oropharynx normal Eyes General: appearance normal, both eyes and all related structures Neck Neck: Yes normal visual inspection, Yes no lymphadenopathy, Yes trachea midline and Yes no JVD Thyroid: Thyroid normal Chest Chest palpation & inspection: normal inspection of the chest, normal palpation of entire chest wall and no tenderness Resp Effort & Inspection: normal respiratory effort and no cough Auscultation: clear to auscultation bilaterally and no wheezes Cardio Palpation: normal PMI Rate: regular rate Rhythm: regular rhythm Heart sounds: no gallops and no murmurs Peripheral pulses: Peripheral pulses 2+ throughout GI Palpation (GI): Soft to palpation, nontender, No hepatosplenomegaly present, no masses and Other GI palpation findings present (Abdomen is slightly obese and protuberant) Auscultation: normal bowel sounds Back/Spine/Pelvis Thoracic/Lumbar Spine: thoracic and lumbar spine normal to inspection Skin General skin exam: no rashes or lesions noted Neuro General: patient oriented x3 and no focal motor deficits Cranial nerves: Yes CN's II-XII intact bilaterally Extrem General: Yes normal to inspection, Yes no clubbing, cyanosis or edema and Yes no calf tenderness Psych Appearance: grossly normal and well kempt Speech and movement: Normal speech and movement present Assessment & Plan Assessment & Plan (1) Obesity (BMI 30-39.9): Comment: DISCUSSED ABOUT THE WEIGHT AND ADVISED HIM THAT HE CAN START WALKING OUTSIDE AND DO SOME EXERCISES TO KEEP HIS WEIGHT DOWN. HE DOES STATE THAT HE IS WALKING DAILY, AND TRYING TO RESTRICT HIS CALORIES INTAKE. SAY IS THAT HE HAS LOST A FEW LB ALREADY. I HAVE ENCOURAGED HIM TO WALK COUPLE OF MILES EVERY DAY. Code(s): E66.9 - Obesity, unspecified (2) Asthma: Comment: THIS PATIENT WAS TREATED MAINLY FOR ASTHMA VARIANT COUGH, WHICH RESOLVED WITH THE FOLLOWING INHALERS. TX : SEREVENT-50 1 INHALATION B.I.D. ON HOLD FLOVENT -100 1 INHALATION B.I.D.. ON HOLD CURRENTLY HE HAS NOT BEEN USING ANY OF THESE INHALERS FOR A FEW MONTHS WITHOUT ANY RECURRENCE OF COUGH OR WHEEZING ADVISED TO USE ALBUTEROL HFA 2 PUFFS Q 6 HOURS ONLY P.R.N. PLAN : WILL DO A SPIROMETRY TO MAKE SURE THAT HE DOES NOT HAVE ANY OBSTRUCTIVE AIRWAY DISORDER. WILL RECHECK HIM Q 6 MONTHS. Code(s): J45.909 - Unspecified asthma, uncomplicated Qualifiers: Asthma severity: moderate Asthma persistence: persistent Asthma complication type: uncomplicated Qualified Code(s): J45.40 - Moderate persistent asthma, uncomplicated (3) CHRIS (obstructive sleep apnea): Comment: HIS SLEEP APNEA IS MILD, RELATED TO HIS OBESITY- NO CPAP . NEEDED ENCOURAGED TO KEEP ON LOSING WEIGHT AND ALWAYS SLEEP IN LATERAL POSITION. Code(s): G47.33 - Obstructive sleep apnea (adult) (pediatric) Orders: Orders AMB Spirometry Testing Today E66.9 - Obesity, unspecified, J45.909 - Unspecified asthma, uncomplicated Coding Level of Care Code Est Pt Level 3 (83945) Diagnoses Obesity (BMI 30-39.9) E66.9 Asthma J45.40 Asthma severity: moderate Asthma persistence: persistent Asthma complication type: uncomplicated CHRIS (obstructive sleep apnea) G47.33
[2023-02-08 16:00] VITALS: BP 128/60; PULSE 80; O2SAT 96; BMI 36.6
== END 2023-02-08 16:15 | disposition home or self-care (01) ==
PROVIDERS: PCP Physician Assistant; Visit Provider Internal Medicine
DX: E66.9 Obesity, unspecified (principal); J45.40 Moderate persistent asthma, uncomplicated; G47.33 Obstructive sleep apnea (adult) (pediatric)
CPT/HCPCS: 99213

== ENCOUNTER → 2023-02-08 15:46 | Outpatient (BNVA) | payer OTHER, SELFPAY | PROVIDERS: PCP Physician Assistant; Visit Provider Internal Medicine | DX: J45.40 Moderate persistent asthma, uncomplicated (principal); G47.33 Obstructive sleep apnea (adult) (pediatric); E66.9 Obesity, unspecified; Z68.36 Body mass index [BMI] 36.0-36.9, adult | CPT/HCPCS: 99212 ==

== ENCOUNTER → 2023-02-17 15:51 | Outpatient (BNVA) | payer OTHER, SELFPAY | PROVIDERS: PCP Physician Assistant; Visit Provider Internal Medicine ==

== ENCOUNTER 2023-03-23 13:48 | Outpatient (AMB) | payer OTHER, SELFPAY ==
--- NOTE | 2023-03-23 13:52 | A.OFFVIS_ITS ---
Intake Vital Signs 03/23/23 13:53 Height 5 ft 9 in Weight 252 lb 10.396 oz BMI 37.3 BP 100/62 Blood Pressure Location Lt brachial Position Sitting Pulse 83 Pulse Source Pulse Oximeter Intake Visit Reasons: DM2 Intake Note: Patient presents today to follow up on Type 2 Diabetes Mellitus. Patient receives DME supplies through: Pharmacy Last Diabetic Eye exam: 09/2022 Last Podiatry Visit: None Random Glucose: 117 mg/dl HgA1C:11.2% 01/25/2023 Retail Brand Ambassador Required: No Accompanied by: Self / Same As Patient Allergies ibuprofen [From MOTRIN] Allergy (Intermediate, Verified 03/23/23 14:00) HIVES, Rash HPI HPI Comments History of Present Illness Details Patient is 47-year-old male with DM type 2 diagnosed at the age 14 by who presents for management of diabetes. Patient was last seen on 11/07/21 by Yumiko Sousa NP Past medical history: Diabetes type 2, hyperlipidemia, hypertension, obesity, CHRIS, asthma Micro and macrovascular complications: nephropathy, CVD Diabetes medications: Tresiba 95 units, NovoLog 25 units prior to meals plus an additional 4 units for blood glucose over 200, + 6 for bg over 250, +8 for bg over 300, + 10 for bg over 350, metformin ER 500 mg 2 pills twice a day, Farxiga 10mg. Intolerant of Trulicity due to constipation that causes rupture of polyp. Unfortunately, patient did not bring log book or glucometer the follow-up visit Symptoms reported: deneisnumbness, tingling, cramping in lower extremities Hypoglycemia: denies Hyperglycemia: occasional urinary frequency, denies nocturia, denies polydypsia Exercise: walking 1/2 - 2 hours most days. Photogrammetric Compilation Specialist - CDE education: in the past Cost Controller: 2 months ago Ophthalmology evaluation: September 2022 Laboratory Tests 09/16/21 16:37 Hgb A1c (Clinic) 10.5 H 02/05/21 02/05/21 06:10 06:10 Creatinine 0.91 Estimated GFR > 60 Hemoglobin A1c % 11.4 Triglycerides 118 Cholesterol 137 LDL Cholesterol, C alc 85 HDL Cholesterol 29 TSH 1.32 [facility] Medical History Acid reflux Asthma Cardiomyopathy Diabetes type 2, uncontrolled Dyslipidemia Effusion, right knee GERD (gastroesophageal reflux disease) Gout of right knee History of [place] (myocardial infarction) Hypertension USP (current) 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 Obesity (BMI 30-39.9) CHRIS (obstructive sleep apnea) Patellofemoral arthritis of right knee Surgical History Hx of rotator cuff surgery History of ear surgery History of surgery on arm Hx of esophagogastroduodenoscopy Hx of colonoscopy Hx of knee surgery Family History Father Diabetes Mother Diabetes Social History Housing: Apartment Alcohol intake: never Patient Tobacco Use Status: Former Tobacco user Quit Date: 2006 Tobacco use type: Cigarette e-Cigarette/Vaping Use: Never Used Second Hand Smoke Exposure: No Substance Use Type: Marijuana service: No Current occupational status: disabled Current occupational exposures/hazards: No Cognitive needs: No Hearing needs: Yes (hearing aide) Vision needs: No Physical Exam Vital Signs: Last Vital Signs Pulse 83 03/23/23 13:53 BP 100/62 03/23/23 13:53 BMI result Body Mass Index 37.3 Absence of Cushingoid features. Absence of acromegalic features. Neck exam reveals nl size thyroid about 15 gms. No thyroid nodules palpable. No carotid bruits present. Lungs CTA. Heart S1 S2, Reg R/R. No M/R/ G. Skin exam reveals absence of vitiligo or acanthosis nigricans. Abdominal exam reveals Soft NT/ND with NA BS. No organomegaly present. Neck Other: . Extrem Other: Visual exam of foot performed. No ulcerations or open lesions. No onchomycosis, no callouses.Pulses 2 + distally Sensation intact to monofilament exam. Vibratory sensation sensed is intact with 128 Hz tuning fork Assessment & Plan Assessment & Plan (1) Diabetes type 2, uncontrolled: Code(s): E11.65 - Type 2 diabetes mellitus with hyperglycemia Qualifiers: Glycemic state: with hyperglycemia Qualified Code(s): E11.65 - Type 2 diabetes mellitus with hyperglycemia Plan: This is a 47-year-old male with a history of type 2 diabetes being treated with metformin, Farxiga and basal-bolus insulin with poor glycemic control with known microvascular macrovascular complications namely CKD and coronary artery disease. Plan is to have the patient scan his point cares pre and post meals with the Lana. Cannot make any adjustments to the regimen today because of lack of data. Will have patient follow up with certified adapted physical educator. Could consider use of Ozempic in combination with insulin and Farxiga once we have more data. Went over correlation poor glycemic control to development and progression of complication patient. Will also check lipid profile and microalbumin to creatinine ratio Orders: Orders Lipid Panel Today E11.65 - Type 2 diabetes mellitus with hyperglycemia Microalbumin, Random (w Creat) Today E11.65 - Type 2 diabetes mellitus with hyperglycemia Coding Level of Care Code Est Pt Level 4 (08567) Diagnoses Uncontrolled type 2 diabetes mellitus with hyperglycemia E11.65 Glycemic state: with hyperglycemia
[2023-03-23 13:53] VITALS: BP 100/62; PULSE 83; BMI 37.3
[2023-03-23 14:10] LABS: Glucose, Whole Blood 117 mg/dL (60-115)
--- NOTE | 2023-03-23 14:45 | AM.OFFVISNUR ---
Intake Vital Signs 03/23/23 13:53 Height 5 ft 9 in Weight 252 lb 10.396 oz BMI 37.3 BP 100/62 Blood Pressure Location Lt brachial Position Sitting Pulse 83 Pulse Source Pulse Oximeter Intake Visit Reasons: DM2 Allergies ibuprofen [From MOTRIN] Allergy (Intermediate, Verified 03/23/23 14:00) HIVES, Rash Nursing Note Educated patient about the use of SkinTac to help keep his sensors on. He c/o sensors only staying on for 4-5 days before falling off and inquired about ways to keep them on longer. Patient was shown how to use SkinTac and sent home with one pad to try it out. Coding Diagnoses Uncontrolled type 2 diabetes mellitus with hyperglycemia E11.65 Glycemic state: with hyperglycemia Assessment & Plan Assessment & Plan (1) Diabetes type 2, uncontrolled: Code(s): E11.65 - Type 2 diabetes mellitus with hyperglycemia Qualifiers: Glycemic state: with hyperglycemia Qualified Code(s): E11.65 - Type 2 diabetes mellitus with hyperglycemia Orders: Orders Lipid Panel Today E11.65 - Type 2 diabetes mellitus with hyperglycemia Microalbumin, Random (w Creat) Today E11.65 - Type 2 diabetes mellitus with hyperglycemia
== END 2023-03-23 14:45 | disposition home or self-care (01) ==
PROVIDERS: PCP Physician Assistant; Visit Provider Internal Medicine Endocrinology, Diabetes & Metabolism
DX: E11.65 Type 2 diabetes mellitus with hyperglycemia (principal)
CPT/HCPCS: 99214

== ENCOUNTER → 2023-03-23 13:48 | Outpatient (BNVA) | payer OTHER, SELFPAY | PROVIDERS: PCP Physician Assistant; Visit Provider Internal Medicine Endocrinology, Diabetes & Metabolism | DX: E11.65 Type 2 diabetes mellitus with hyperglycemia (principal); E11.21 Type 2 diabetes mellitus with diabetic nephropathy; E66.9 Obesity, unspecified; Z68.37 Body mass index [BMI] 37.0-37.9, adult; Z79.84 Long term (current) use of oral hypoglycemic drugs | CPT/HCPCS: 82947; 99212 ==

== ENCOUNTER 2023-04-03 06:03 | Outpatient (REF) | payer OTHER, SELFPAY ==
[2023-04-03 08:46] LABS: Cholesterol 194 mg/dL (<200); HDL Cholesterol 25 mg/dL (>40); Triglycerides 631 mg/dL (<150)
[2023-04-03 09:02] LABS: Prostate Specific Antigen Scr 0.51 ng/mL (<0.05-4.0)
[2023-04-03 10:07] LABS: Creatinine Urine 37.12 mg/dL; Microalbumin Urine < 5.0 mg/L
== END 2023-04-03 06:04 | disposition home or self-care (01) ==
LOC: HO.LAB 06:03
PROVIDERS: Absent Provider Internal Medicine Endocrinology, Diabetes & Metabolism; PCP Physician Assistant; Visit Provider Physician Assistant
DX: Z12.5 Encounter for screening for malignant neoplasm of prostate (principal); E11.65 Type 2 diabetes mellitus with hyperglycemia
CPT/HCPCS: 36415; 80061; 82043; 82570; 84153

== ENCOUNTER 2023-06-24 15:57 | Emergency (ER) | payer OTHER, SELFPAY ==
--- NOTE | ~2023-06-24 | XR_ITS ---
EXAMINATION: XR WRIST, LEFT XR HAND, LEFT CLINICAL INFORMATION: Left hand injury COMPARISON: None available. TECHNIQUE: PA, lateral, and oblique views of the left wrist and PA, lateral, and oblique views of the left hand FINDINGS: LEFT WRIST: The bones and soft tissues are normal. No fracture. Alignment is anatomic. Joint spaces are maintained. No erosions or soft tissue calcifications. LEFT HAND: The bones and soft tissues are normal. No fracture. Alignment is anatomic. Joint spaces are maintained. No erosions or soft tissue calcifications. XR/XR hand wrist LT IMPRESSION: Normal left hand and wrist.
[2023-06-24 16:08] VITALS: BP 119/62; PULSE 85; RESP 16; TEMP 36.4; O2SAT 96; BMI 36.9
--- NOTE | 2023-06-24 16:23 | ED_ITS ---
HPI - Extremity Problem General Chief complaint: Extremity Injury, Upper Stated complaint: left wrist inj Time Seen by Provider: 06/24/23 16:22 Source: patient Mode of arrival: ambulatory Limitations: no limitations History of Present Illness HPI Narrative: Patient is a 47 year old assigned male at with a history of CHF and DM presenting to the emergency department today with left hand pain. Patient states that he was working when a wire came out of a tube, sharp, and stabbed through the soft tissue of this left thumb. Patient states that he was able to remove the wire in 1 solid piece. Patient denies any dizziness, lightheadedness, abdominal pain, nausea, vomiting, fever, chills, blurry vision, double vision, loss of vision, chest pain, difficulty breathing, shortness of breath, back pain, night sweats, pain with urination, increased urinary frequency, increased urinary urgency, blood in his urine or stool, syncope or a near syncopal episode, bowel incontinence, bladder incontinence, bowel retention, bladder retention, or any other complaints at this time. MD Complaint: extremity pain Onset (ago): minute(s) Pain Consistency: constant Location: left and upper extremity Severity scale (1-10): 4 Relieving factors: nothing Exacerbating factors: nothing Associated symptoms: denies other symptoms Related Data Home Medications Medication Instructions Recorded Confirmed dapagliflozin propanediol 10 mg 10 mg PO DAILY 02/16/21 01/25/23 tablet (Farxiga) sacubitril 49 mg-valsartan 51 mg 0.5 tab PO BID 09/17/21 01/25/23 tablet (Entresto) albuterol sulfate 90 mcg/actuation 2 puff inhalation Q4-6H PRN 11/24/21 01/25/23 aerosol inhaler spironolactone 25 mg tablet 25 mg PO DAILY 11/24/21 01/25/23 Previous Rx's Medication Instructions Recorded flash glucose scanning reader #1 ea 09/20/21 ([employer] Lana [address] [place]) methylcellulose (laxative) 500 mg 500 mg PO TID #90 tabs 10/25/21 tablet (Citrucel) peg 3350-electrolytes 236 240 ml PO Q10M 1 day #4,000 mL 10/29/21 gram-22.74 gram-6.74 gram-5.86 gram solution omeprazole 20 mg capsule,delayed 20 mg PO DAILY #90 caps 06/01/22 release blood sugar diagnostic (FreeStyle #150 ea 08/29/22 Lite Strips) blood-glucose meter (FreeStyle #1 ea 08/29/22 Lite Meter kit) metoprolol succinate 100 mg 100 mg PO DAILY 90 days #90 tabs 09/20/22 tablet,extended release 24 hr atorvastatin 80 mg tablet 80 mg PO BEDTIME 90 days #90 caps 10/10/22 aspirin 81 mg tablet,delayed 81 mg PO DAILY 90 days #90 tabs 10/19/22 release (Adult Aspirin Regimen) metformin 500 mg tablet,extended 1,000 mg (2 x 500 mg) PO BID 90 01/25/23 release 24 hr days #360 caps insulin aspart U-100 100 unit/mL 25 - 45 unit (0.25 - 0.45 mL) 02/27/23 (3 mL) subcutaneous pen (Novolog subcut TID 30 days #45 mL FlexPen U-100 Insulin aspart) Vascepa 1 gram capsule (icosapent 2 g (2 x 1 gram) PO BID #120 caps 04/05/23 ethyl) fluticasone propionate 110 2 puff inhalation BID copd/Asthma 05/01/23 mcg/actuation HFA aerosol inhaler 30 days #12 grams (Flovent HFA) salmeterol 50 mcg/dose blister 1 inh inhalation BID copd/asthma 05/01/23 powder for inhalation (Serevent 30 days #60 ea Diskus) insulin degludec 200 unit/mL (3 100 unit (0.5 mL) subcut DAILY 30 05/05/23 mL) subcutaneous pen (Tresi days #18 mL FlexTouch U-200 insulin) pen needle, diabetic 32 gauge x 1 ea subcut QID 30 days #120 caps 05/15/23 (BD Ultra-Fine Billie Pen Needle) lancets 28 gauge (FreeStyle #100 ea 05/28/23 Lancets) cefuroxime axetil 250 mg tablet 250 mg PO BID 7 days #14 tabs 06/24/23 doxycycline hyclate 100 mg tablet 100 mg PO BID 7 days #14 tabs 06/24/23 Allergies Allergy/AdvReac Type Severity Reaction Status Date / Time ibuprofen [From MOTRIN] Allergy Intermediate HIVES, Rash Verified 03/23/23 14:00 Review of Systems 2 Constitutional: Constitutional: Reports no additional constitutional complaints, Denies chills, Denies fever(s) and Denies night sweats Eyes: Eyes: Reports no additional eye complaints, Denies blurry vision, Denies change in vision, Denies diplopia, Denies eye discharge, Denies loss of vision and Denies eye pain ENT: Denies dizziness Cardiovascular: Cardiovascular: Reports no additional cardiovascular complaints, Denies chest pain, Denies lightheadedness, Denies Loss of Consciousness and Denies dyspnea Respiratory: Respiratory: Reports no additional respiratory complaints and Denies dyspnea Gastrointestinal: Gastrointestinal: Reports no additional gastrointestinal complaints, Denies abdominal pain, Denies melena, Denies hematochezia, Denies change in bowel habits and Denies change in stool character Genitourinary: Genitourinary: Reports no additional male genitourinary complaints, Denies hematuria, Denies oliguria, Denies difficulty urinating, Denies dysuria, Denies urinary frequency, Denies urinary hesitancy, Denies urinary incontinence and Denies urinary urgency Musculoskeletal: Musculoskeletal: Reports no additional musculoskeletal complaints, Denies numbness and Denies tingling Comments: left hand pain Neurologic: Denies dizziness, Denies loss of vision, Denies numbness and Denies tingling Psychiatric: Psychiatric: Reports no additional psychiatric complaints Endocrine: Endocrine: Reports no additional endocrine complaints Hematologic/Lymphatic: Hematologic/Lymphatic: Reports no additional hematologic/lymphatic complaints Allergic/Immunologic: Allergic/Immunologic: Reports no additional allergic/immunologic complaints PMFSH Past Medical History Attestation statement: The following information was validated with the patient. Source: old records reviewed and nursing notes reviewed Medical History Colon cancer screening Obese Annual physical exam Obesity (BMI 30-39.9) Cardiomyopathy Gout of right knee History of SC (myocardial infarction) GERD (gastroesophageal reflux disease) Asthma CHRIS (obstructive sleep apnea) Effusion, right knee Patellofemoral arthritis of right knee Acid reflux Hypertension Dyslipidemia senior living (current) 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 Diabetes type 2, uncontrolled Surgical History Hx of rotator cuff surgery History of ear surgery History of surgery on arm Hx of esophagogastroduodenoscopy Hx of colonoscopy Hx of knee surgery Family History Family History Father Diabetes Mother Diabetes Social History Social History Housing: Apartment Alcohol intake: never Patient Tobacco Use Status: Former Tobacco user Quit Date: 2006 Tobacco use type: Cigarette e-Cigarette/Vaping Use: Never Used Second Hand Smoke Exposure: No Substance Use Type: Marijuana Advance Directives: No Advance Directives Information Provided: No service: No Current occupational status: disabled Current occupational exposures/hazards: No Cognitive needs: No Hearing needs: Yes (hearing aide) Vision needs: No Physical Exam 2 Vital Signs: Vital Signs: Last Vital Signs Temp 97.6 F 06/24/23 16:08 Pulse 85 06/24/23 16:08 Resp 16 06/24/23 16:08 BP 119/62 06/24/23 16:08 Pulse Ox 96 06/24/23 16:08 O2 Del Method Room Air 06/24/23 16:08 BMI result Body Mass Index 36.9 Const: General: cooperative, no acute distress, alert and awake Nutritional Appearance: well nourished Orientation/consciousness: patient oriented x3 Limitations: no limitations HEENT: Head: Yes normal to inspection and Yes atraumatic Ears: hearing grossly normal bilaterally and external ears normal General nose exam: Normal external nose present, no nasal discharge noted and no epistaxis Face and sinus: Yes normal facial exam, No abrasion and No laceration Mouth: Normal oral and palatal mucosa present, no drooling and no muffled voice Eyes: General: appearance normal, both eyes and all related structures P eriorbital: periorbital findings normal Eyelids: Yes eyelids normal C onjunctivae: conjunctivae normal Pupils: Equal, round and reactive pupils present EOM: EOMs intact bilaterally Neck: Neck: Yes normal visual inspection, Yes full ROM and Yes no lymphadenopathy Chest: Chest palpation & inspection: normal inspection of the chest Resp: Effort & Inspection: normal respiratory effort and able to speak in complete sentences GI: Inspection: Yes normal to inspection Neuro: General: patient oriented x3 and moves all extremities Cranial nerves: Yes Equal, round and reactive pupils present Cognition (Neuro): n ormal cognition Motor exam (neuro): 5/5 motor strength present throughout Sensory Exam: Normal double simultaneous stimulation for sensation C oordination: [id number] test normal Extrem: Other: decreased ROM of the left thumb, unable to touch tip of 4th or 5th finger with left thumb General: Yes capillary refill normal Hand/finger images: 1. entrance wound from the wire, no active bleeding 2. Exit wound from the wire, no active b leeding Psych: Appearance: grossly normal Mental Status: mental status grossly normal Affect: normal affect Attitude: cooperative Thought process: N ormal thought process present Thought content: Normal thought content present Insight: Good insight present (Psych) Medications Administered Discontinued Medications Generic Name Dose Route Start Last Admin Trade Name Freq PRN Reason Stop Dose Admin Cefuroxime Axetil 250 mg 06/24/23 17:40 06/24/23 18:18 Cefuroxime Axetil 250 Mg Tablet PO 06/24/23 17:41 250 mg ONCE ONE Administration Diphtheria/Tetanus/Acell Pertussis 0.5 ml 06/24/23 17:40 06/24/23 18:19 Diphth,Pertus(Acell),Tet Adult 0.5 Ml Syringe IM 06/24/23 17:41 0.5 ml .ONCE ONE Administration Doxycycline Monohydrate 100 mg 06/24/23 17:52 06/24/23 18:18 Doxycycline Monohydrate 100 Mg Capsule PO 06/24/23 17:53 100 mg ONCE ONE Administration Medical Decision Making Medical Decision Making [facility] Narrative: Patient is a 47 year old assigned male at with a history of CHF and DM presenting to the emergency department today with a left hand injury. Patient's physical exam was as noted in the physical exam portion of this note. Patient's left hand/wrist x-ray showed no acute process. I explained my physical exam findings as well as all test results to the patient. I answered all questions asked by the patient. Patient's left hand was soaked and thoroughly cleaned. Patient's left hand was placed in a thumb spica splint, without incident. Patient's PMS was intact prior to and after splint placement. Patient was given his first dose of antibiotics while in the department. I stressed the importance of the patient taking his medication as prescribed. I stressed the importance of the patient following up with his primary care provider and an orthopedic provider. I stressed the importance of the patient returning to the emergency department immediately if his symptoms were to worsen or if he were to develop any dizziness, shortness of breath, difficulty breathing, chest pain, blurry vision, loss of vision, nausea, vomiting, abdominal pain, fever, chills, back pain, or any other complaints. Patient verbalized agreement and understanding with this treatment plan and discharge. Differential Diagnosis Differential Diagnoses: The differential diagnosis associated with the presentation includes UCL of thumb injury RCL of thumb injury Thumb sprain Thumb strain Thumb fracture Puncture wound Admission/Observation Consideration of admission/observation: Escalation of care including admission/observation considered Patient would have been admitted to the hospital had his work up had any findings where hospital admission was appropriate and his clinical presentation warranted hospital admission. Independent Interpretation I performed an independent interpretation of an: Plain X-Ray Interpretation: My interpretation is in agreement with the radiologist's impression of these imaging studies. - EXAMINATION: XR WRIST, LEFT XR HAND, LEFT CLINICAL INFORMATION: Left hand injury COMPARISON: None available. TECHNIQUE: PA, lateral, and oblique views of the left wrist and PA, lateral, and oblique views of the left hand FINDINGS: LEFT WRIST: The bones and soft tissues are normal. No fracture. Alignment is anatomic. Joint spaces are maintained. No erosions or soft tissue calcifications. LEFT HAND: The bones and soft tissues are normal. No fracture. Alignment is anatomic. Joint spaces are maintained. No erosions or soft tissue calcifications. XR/XR hand wrist LT IMPRESSION: Normal left hand and wrist. Dictated By: John Dietrich MD Signed By: Electronically signed by John Dietrich MD 06/24/23 [id number] Radiology Impression Discussion of test interpretation with radiology: I have reviewed the radiologist's reading. Prescription Management I considered prescription management with: Antibiotic (given mechanism of injury and patient's diabetic status, given antibiotic.) Chronic Conditions Patient?s care impacted by: Diabetes Procedures Orthopedic Splinting/Casting Injury #1: Side: left Upper Extremity Injury Location: finger (thumb) Upper Extremity Immobilizer: thumb spica Discharge Plan Discharge Clinical Impression: Puncture wound, Left thumb sprain Patient Disposition: Home, Self-Care Instructions: Puncture Wound (DC), Finger Sprain (ED) Additional Instructions: Follow up with your primary care provider and an orthopedic provider. Return to the emergency department immediately if your symptoms worsen or if you develop any dizziness, shortness of breath, difficulty breathing, chest pain, blurry vision, loss of vision, nausea, vomiting, abdominal pain, fever, chills, back pain, or any other complaints. Prescriptions: New cefuroxime axetil 250 mg tablet 250 mg PO BID 7 Days Qty: 14 0RF doxycycline hyclate 100 mg tablet 100 mg PO BID 7 Days Qty: 14 0RF No Action (DME) FreeStyle [place]ana [address] [place] Misc See Rx Instructions .ROUTE .MEDSUPPLY Qty: 1 0RF Rx Instructions: As directed peg 3350-electrolytes 236-22.74-6.74 -5.86 gram recon soln 240 ml PO Q10M 1 Days Qty: 4000 0RF Rx Instructions: until fecal effluent is clear 1/2 evening before- procedure Last half a prep-drink and complete 6 hours before procedure (DME) FreeStyle Lite Strips Strip See Rx Instructions .ROUTE .MEDSUPPLY Qty: 150 11RF Rx Instructions: As directed four times a day (DME) blood-glucose meter [FreeStyle Lite Meter] Kit See Rx Instructions .ROUTE .MEDSUPPLY Qty: 1 0RF Rx Instructions: As directed 3x/day metoprolol succinate 100 mg tablet extended release 24 hr 100 mg PO DAILY 90 Days Qty: 90 2RF atorvastatin 80 mg tablet 80 mg PO BEDTIME 90 Days Qty: 90 3RF aspirin [Adult Aspirin Regimen] 81 mg tablet,delayed release (DR/EC) 81 mg PO DAILY 90 Days Qty: 90 2RF insulin aspart U-100 [Novolog FlexPen U-100 Insulin] 100 unit/mL (3 mL) insulin pen 25 - 45 unit subcut TID 30 Days Qty: 45 1RF icosapent ethyl [Vascepa] 1 gram capsule 2 g PO BID Qty: 120 5RF Serevent Diskus 50 mcg/dose blister with device 1 inh inhalation BID 30 Days Qty: 60 2RF fluticasone propionate [Flovent HFA] 110 mcg/actuation HFA aerosol inhaler 2 puff inhalation BID 30 Days Qty: 12 2RF Rx Instructions: administer with spacer Tresiba FlexTouch U-200 200 unit/mL (3 mL) insulin pen 100 unit subcut DAILY 30 Days Qty: 18 3RF pen needle, diabetic [BD Ultra-Fine Billie Pen Needle] 32 gauge x 5/32 needle 1 ea subcut QID 30 Days Qty: 120 11RF (DME) lancets [FreeStyle Lancets] 28 gauge misc See Rx Instructions .ROUTE .MEDSUPPLY Qty: 100 3RF Rx Instructions: Three times a day Farxiga 10 mg tablet 10 mg PO DAILY metformin 500 mg tablet extended release 24 hr 1,000 mg PO BID 90 Days Qty: 360 3RF omeprazole 20 mg capsule,delayed release(DR/EC) 20 mg PO DAILY Qty: 90 1RF Citrucel 500 mg tablet 500 mg PO TID Qty: 90 5RF albuterol sulfate 90 mcg/actuation HFA aerosol inhaler 2 puff inhalation Q4-6H PRN Entresto 49-51 mg tablet 0.5 tab PO BID spironolactone 25 mg tablet 25 mg PO DAILY Referrals: [facility] [Provider Group] (Call to establish and follow up with an orthopedic provider.) Deejay Gonzalez PA-C [Primary Care Provider] - Stand Alone Forms: Work/School Release Interventions: ED Discharge Assessment Last Done: 06/24/23 18:48 Discharge Date/Time: 06/24/23 18:48 Print Language: Estonian
[2023-06-24] MEDS: cefuroxime axetiL 250 MG TABLET PO (18:18)
[2023-06-24] MEDS: Doxycycline Monohydrate 100 MG CAPSULE PO (18:18)
[2023-06-24] MEDS: Diphth,Pertus(ACell),Tet Adult 0.5 ML SYRINGE IM (18:19)
== END 2023-06-24 18:48 | disposition home or self-care (01) ==
PROVIDERS: Emergency Provider Internal Medicine; PCP Physician Assistant
DX: S63.602A Unspecified sprain of left thumb, initial encounter (principal); S61.032A Puncture wound without foreign body of left thumb without damage to nail, initial encounter; W45.8XXA Other foreign body or object entering through skin, initial encounter; W26.8XXA Contact with other sharp object(s), not elsewhere classified, initial encounter; Y93.9 Activity, unspecified; Y92.9 Unspecified place or not applicable; Y99.0 Civilian activity done for income or pay; M79.642 Pain in left hand; I50.9 Heart failure, unspecified; E11.9 Type 2 diabetes mellitus without complications; I10 Essential (primary) hypertension; J45.909 Unspecified asthma, uncomplicated; Z23 Encounter for immunization
CPT/HCPCS: 73110; 73130; 90471; 90715; 99283; 99284

== ENCOUNTER 2023-08-21 09:15 | Outpatient (REF) | payer OTHER, SELFPAY ==
[2023-08-21 10:40] LABS: Cholesterol 213 mg/dL (<200); HDL Cholesterol 32 mg/dL (>40); LDL Cholesterol Calculated 121 mg/dL (<100); Triglycerides 304 mg/dL (<150)
== END 2023-08-21 09:16 | disposition home or self-care (01) ==
LOC: HO.LAB 09:15
PROVIDERS: PCP Physician Assistant; Visit Provider Internal Medicine Endocrinology, Diabetes & Metabolism
DX: E78.5 Hyperlipidemia, unspecified (principal)
CPT/HCPCS: 36415; 80061

== ENCOUNTER 2023-08-28 15:37 | Outpatient (AMB) | payer OTHER, SELFPAY ==
[2023-08-28 16:05] VITALS: BP 112/74; PULSE 73; O2SAT 97; BMI 37.5
--- NOTE | 2023-08-28 16:05 | MHC.OFFVIS ---
Intake Vital Signs 08/28/23 16:05 Height 5 ft 10 in Weight 261 lb 3.964 oz BMI 37.5 BP 112/74 Blood Pressure Location Lt brachial Position Sitting Pulse 73 Pulse Source Pulse Oximeter Pulse Oximetry (%) 97 Oxygen Delivery Method Room Air Intake Visit Reasons: dyspnea Intake Note: pt is here for follow up and states he is feeling good. Slab Polisher Required: No Allergies ibuprofen [From MOTRIN] Allergy (Intermediate, Verified 08/28/23 16:16) HIVES, Rash Medication List - Last Reconciled 08/28/23 by Glen Reynolds MD albuterol sulfate 90 mcg/actuation 2 puffs inhalation Q4-6H PRN aspirin (Adult Aspirin Regimen) 81 mg PO DAILY 90 days atorvastatin 80 mg PO BEDTIME 90 days bisacodyl (Dulcolax (bisacodyl)) 20 mg (4 x 5 mg) PO ONCE 1 day blood sugar diagnostic (FreeStyle Lite Strips) As directed four times a day blood-glucose meter (FreeStyle Lite Meter kit) As directed 3x/day dapagliflozin propanediol (Farxiga) 10 mg PO DAILY flash glucose scanning reader ([employer] Lana 2 [place]) As directed fluticasone propionate 110 mcg/actuation (Flovent HFA) 2 puffs inhalation BID 30 days insulin aspart U-100 (Novolog FlexPen U-100 Insulin aspart) 25 - 45 units (0.25 - 0.45 mL) subcut TID 30 days insulin degludec (Tresiba FlexTouch U-200 insulin) 100 units (0.5 mL) subcut DAILY 30 days lancets (FreeStyle Lancets) Three times a day metformin ER 1,000 mg (2 x 500 mg) PO BID 90 days methylcellulose (laxative) (Citrucel) 500 mg PO TID metoprolol succinate ER 100 mg PO DAILY 90 days omeprazole 20 mg PO DAILY peg 3350-electrolytes 236-22.74-6.74 -5.86 gram 240 mL PO Q10M pen needle, diabetic (BD Ultra-Fine Billie Pen Needle) 1 ea subcut QID 30 days sacubitril-valsartan 49-51 mg (Entresto) 0.5 tabs PO BID salmeterol (Serevent Diskus) 1 inh inhalation BID 30 days spironolactone 25 mg PO DAILY Vascepa (icosapent ethyl) 2 grams (2 x 1 gram) PO BID NS Do you need a note to return to daycare/school/sports/work: No HPI dyspnea HPI Details Onesimo is 47 years old grossly obese gentleman. He tends to put on some weight during winter because he does not work. 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 And he will lose weight He is being followed for mild bronchial asthma which remains well controlled with the use of Serevent only 1 inhalation daily and Flovent 2 puffs only in the morning. He hardly needs to use albuterol. He is overweight but questioned him about sleeping and he say is he sleeps like a log throughout the night He has. 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 Diabetes type 2, uncontrolled Surgical History Hx of rotator cuff surgery History of ear surgery History of surgery on arm Hx of esophagogastroduodenoscopy Hx of colonoscopy Hx of knee surgery Family History Father Diabetes Mother Diabetes Social History Housing: Apartment Alcohol intake: never Patient Tobacco Use Status: Former Tobacco user Quit Date: 2006 Tobacco use type: Cigarette e-Cigarette/Vaping Use: Never Used Second Hand Smoke Exposure: No Substance Use Type: Marijuana service: No Current occupational status: disabled Current occupational exposures/hazards: No Cognitive needs: No Hearing needs: Yes (hearing aide) Vision needs: No Review of Systems Const All systems reviewed & are unremarkable except as noted in HPI and below Denies snoring Eyes Reports no additional complaints ENT Reports no additional complaints Card Denies chest pain, Denies irregular heart rhythm and Denies leg edema Resp Reports cough, Denies snoring and Denies wheezing GI Reports heartburn (Acid reflux problem controlled with med) Reports no additional complaints Musc Reports no additional complaints Skin/Breast Reports system reviewed and no additional complaints, except as documented Neuro Reports no additional complaints Psych Reports no additional complaints Aller/Immun Denies wheezing Physical Exam Vital Signs: Last Vital Signs Pulse 73 08/28/23 16:05 BP 112/74 08/28/23 16:05 Pulse Ox 97 08/28/23 16:05 Oxygen Delivery Method Room Air 08/28/23 16:05 BMI result Body Mass Index 37.5 Const General: healthy appearing (EXCEPT FOR BEING OVERWEIGHT.), comfortable, no acute distress, alert and awake Orientation/consciousness: patient oriented x3 HEENT Head: Yes normal to inspection General nose exam: No nasal polyps present and No nasal discharge present Face and sinus: Yes sinuses nontender Mouth: oropharynx normal Throat: Yes posterior oropharynx normal Eyes General: appearance normal, both eyes and all related structures Neck Neck: Yes normal visual inspection, Yes no lymphadenopathy, Yes trachea midline and Yes no JVD Thyroid: Thyroid normal Chest Chest palpation & inspection: normal inspection of the chest, normal palpation of entire chest wall and no tenderness Resp Effort & Inspection: normal respiratory effort and no cough Auscultation: clear to auscultation bilaterally and no wheezes Cardio Palpation: normal PMI Rate: regular rate Rhythm: regular rhythm Heart sounds: no gallops and no murmurs Peripheral pulses: Peripheral pulses 2+ throughout GI Palpation (GI): Soft to palpation, nontender, No hepatosplenomegaly present, no masses and Other GI palpation findings present (Abdomen is slightly obese and protuberant) Auscultation: normal bowel sounds Back/Spine/Pelvis Thoracic/Lumbar Spine: thoracic and lumbar spine normal to inspection Skin General skin exam: no rashes or lesions noted Neuro General: patient oriented x3 and no focal motor deficits Cranial nerves: Yes CN's II-XII intact bilaterally Extrem General: Yes normal to inspection, Yes no clubbing, cyanosis or edema and Yes no calf tenderness Psych Appearance: grossly normal and well kempt Speech and movement: Normal speech and movement present Assessment & Plan Assessment & Plan (1) Asthma: Comment: THIS PATIENT WAS TREATED MAINLY FOR ASTHMA VARIANT COUGH, WHICH RESOLVED WITH THE FOLLOWING INHALERS. TX : SEREVENT-50 1 INHALATION B.I.D. FLOVENT -100 1 INHALATION B.I.D.. CURRENTLY HE IS USING ONLY ONCE A DAY, AND IS STAYING FREE OF SYMPTOMS. HE SAY IS HE HARDLY NEEDS TO USE THE RESCUE INHALER/ Code(s): J45.909 - Unspecified asthma, uncomplicated Qualifiers: Asthma severity: moderate Asthma persistence: persistent Asthma complication type: uncomplicated Qualified Code(s): J45.40 - Moderate persistent asthma, uncomplicated Plan: FLOVENT -110 2 PUFFS IN THE MORNING SEREVENT DISKUS 1 INHALATION IN THE MORNING. ALBUTEROL HFA ONLY IF NEEDED. (2) CHRIS (obstructive sleep apnea): Comment: HIS SLEEP APNEA IS MILD, RELATED TO HIS OBESITY- NO CPAP . NEEDED ENCOURAGED TO KEEP ON LOSING WEIGHT AND ALWAYS SLEEP IN LATERAL POSITION. Code(s): G47.33 - Obstructive sleep apnea (adult) (pediatric) Plan: ABOVE (3) Obesity (BMI 30-39.9): Comment: DISCUSSED ABOUT THE WEIGHT AND ADVISED HIM THAT HE CAN START WALKING OUTSIDE AND DO SOME EXERCISES TO KEEP HIS WEIGHT DOWN. HE DOES STATE THAT HE IS WALKING DAILY, AND TRYING TO RESTRICT HIS CALORIES INTAKE. 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 Code(s): E66.9 - Obesity, unspecified Plan: ABOVE Coding Level of Care Code Est Pt Level 3 (14999) Diagnoses Moderate persistent asthma without complication J45.40 Asthma severity: moderate Asthma persistence: persistent Asthma complication type: uncomplicated CHRIS (obstructive sleep apnea) G47.33 Obesity (BMI 30-39.9) E66.9
== END 2023-08-28 16:23 | disposition home or self-care (01) ==
PROVIDERS: PCP Physician Assistant; Visit Provider Internal Medicine
DX: J45.40 Moderate persistent asthma, uncomplicated (principal); G47.33 Obstructive sleep apnea (adult) (pediatric); E66.9 Obesity, unspecified
CPT/HCPCS: 99213

== ENCOUNTER → 2023-08-28 15:37 | Outpatient (BNVA) | payer OTHER, SELFPAY | PROVIDERS: PCP Physician Assistant; Visit Provider Internal Medicine | DX: J45.40 Moderate persistent asthma, uncomplicated (principal); G47.33 Obstructive sleep apnea (adult) (pediatric); E66.9 Obesity, unspecified; Z68.37 Body mass index [BMI] 37.0-37.9, adult | CPT/HCPCS: 99212 ==

== ENCOUNTER 2023-08-30 13:36 | Outpatient (AMB) | payer OTHER, SELFPAY ==
--- NOTE | 2023-08-30 13:45 | MHC.OFFVIS ---
Intake Vital Signs 08/30/23 13:51 Height 5 ft 10 in Weight 257 lb 7.999 oz BMI 36.9 BP 102/60 Blood Pressure Location Lt brachial Position Sitting Pulse 78 Pulse Source Pulse Oximeter Intake Visit Reasons: f/u Type 2 DM-confirmed Intake Note: Patient presents today to follow up on D2MT. Last Diabetic Eye exam: 10/2022 Last Podiatry Visit:None Random Glucose: 200 mg/dl HgA1c: 10.5% Condominium Association Manager Required: No Accompanied by: Self / Same As Patient Allergies ibuprofen [From MOTRIN] Allergy (Intermediate, Verified 08/30/23 13:56) HIVES, Rash Medication List - Last Reconciled 08/30/23 by Adarsh Dolan MD albuterol sulfate 90 mcg/actuation 2 puffs inhalation Q4-6H PRN aspirin (Adult Aspirin Regimen) 81 mg PO DAILY 90 days atorvastatin 80 mg PO BEDTIME 90 days bisacodyl (Dulcolax (bisacodyl)) 20 mg (4 x 5 mg) PO ONCE 1 day blood sugar diagnostic (FreeStyle Lite Strips) As directed four times a day blood-glucose meter (FreeStyle Lite Meter kit) As directed 3x/day dapagliflozin propanediol (Farxiga) 10 mg PO DAILY flash glucose scanning reader ([employer] Lana 2 [place]) As directed fluticasone propionate 110 mcg/actuation (Flovent HFA) 2 puffs inhalation BID 30 days insulin aspart U-100 (Novolog FlexPen U-100 Insulin aspart) 25 - 45 units (0.25 - 0.45 mL) subcut TID 30 days insulin degludec (Tresiba FlexTouch U-200 insulin) 100 units (0.5 mL) subcut DAILY 30 days lancets (FreeStyle Lancets) Three times a day metformin ER 1,000 mg (2 x 500 mg) PO BID 90 days methylcellulose (laxative) (Citrucel) 500 mg PO TID metoprolol succinate ER 100 mg PO DAILY 90 days omeprazole 20 mg PO DAILY peg 3350-electrolytes 236-22.74-6.74 -5.86 gram 240 mL PO Q10M pen needle, diabetic (BD Ultra-Fine Billie Pen Needle) 1 ea subcut QID 30 days sacubitril-valsartan 49-51 mg (Entresto) 0.5 tabs PO BID salmeterol (Serevent Diskus) 1 inh inhalation BID 30 days spironolactone 25 mg PO DAILY Vascepa (icosapent ethyl) 2 grams (2 x 1 gram) PO BID NS HPI HPI Comments History of Present Illness Details Patient is 47-year-old male with DM type 2 diagnosed at the age 14 by who presents for management of diabetes. Patient was last seen on 11/07/21 by Yumiko Sousa NP Past medical history: Diabetes type 2, hyperlipidemia, hypertension, obesity, CHRIS, asthma Micro and macrovascular complications: nephropathy, CVD Diabetes medications: Tresiba 100 units, NovoLog 25 units prior to meals plus an additional 4 units for blood glucose over 200, + 6 for bg over 250, +8 for bg over 300, + 10 for bg over 350, metformin ER 500 mg 2 pills twice a day, Farxiga 10mg. Intolerant of Trulicity due to constipation that causes rupture of polyp. Glucometer download shows the patient is checking his point cares 3 times a day. Average glucose is 287 with standard deviation of 82. 2% range with 98% hyperglycemia no hypoglycemia. Symptoms reported: deneisnumbness, tingling, cramping in lower extremities Hypoglycemia: denies Hyperglycemia: occasional urinary frequency, denies nocturia, denies polydypsia Exercise: walking 1/2 - 2 hours most days. Media Consultant Outside Sales - CDE education: in the past Outside Food Server: 2 months ago Ophthalmology evaluation: September 2022 has appt 10/17/2023 Laboratory Tests 09/16/21 16:37 Hgb A1c (Clinic) 10.5 H 02/05/21 02/05/21 06:10 06:10 Creatinine 0.91 Estimated GFR > 60 Hemoglobin A1c % 11.4 Triglycerides 118 Cholesterol 137 LDL Cholesterol, C alc 85 HDL Cholesterol 29 TSH 1.32 [facility] Medical History (Updated 08/28/23 @ 16:30 by Glen Reynolds MD) Obesity (BMI 30-39.9) Colon cancer screening Obese Annual physical exam Cardiomyopathy Gout of right knee History of [place] (myocardial infarction) GERD (gastroesophageal reflux disease) Asthma CHRIS (obstructive sleep apnea) Effusion, right knee Patellofemoral arthritis of right knee Acid reflux Hypertension 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 Diabetes type 2, uncontrolled Surgical History Hx of rotator cuff surgery History of ear surgery History of surgery on arm Hx of esophagogastroduodenoscopy Hx of colonoscopy Hx of knee surgery Family History Father Diabetes Mother Diabetes Social History Housing: Apartment Alcohol intake: never Patient Tobacco Use Status: Former Tobacco user Quit Date: 2006 Tobacco use type: Cigarette e-Cigarette/Vaping Use: Never Used Second Hand Smoke Exposure: No Substance Use Type: Marijuana service: No Current occupational status: disabled Current occupational exposures/hazards: No Cognitive needs: No Hearing needs: Yes (hearing aide) Vision needs: No Physical Exam Vital Signs: Last Vital Signs Pulse 78 08/30/23 13:51 BP 102/60 08/30/23 13:51 BMI result Body Mass Index 36.9 Absence of Cushingoid features. Absence of acromegalic features. Neck exam reveals nl size thyroid about 15 gms. No thyroid nodules palpable. No carotid bruits present. Lungs CTA. Heart S1 S2, Reg R/R. No M/R/ G. Skin exam reveals absence of vitiligo or acanthosis nigricans. Abdominal exam reveals Soft NT/ND with NA BS. No organomegaly present. Neck Other: . Extrem Other: Visual exam of foot performed. No ulcerations or open lesions. No onchomycosis, no callouses.Pulses 2 + distally Sensation intact to monofilament exam. Vibratory sensation sensed is intact with 128 Hz tuning fork Results AMB Hemoglobin A1c AMB Hemoglobin A1c 10.5 % Last Edit by ELIDIA Botello on 08/30/23 14:12 Results Reviewed Results Reviewed: Laboratory Last Values Glucose (Clinic) 200 mg/dL (60-115) H 08/30/23 14:01 Hgb A1c (Clinic) 10.5 % (4.0-6.0) H 08/30/23 14:05 Assessment & Plan Assessment & Plan (1) Diabetes type 2, uncontrolled: Code(s): E11.65 - Type 2 diabetes mellitus with hyperglycemia Qualifiers: Glycemic state: with hyperglycemia Qualified Code(s): E11.65 - Type 2 diabetes mellitus with hyperglycemia Plan: This is a 47-year-old male with a history of type 2 diabetes being treated with metformin, Farxiga and basal-bolus insulin with poor glycemic control with known microvascular macrovascular complications namely CKD and coronary artery disease. Plan is to switch Lana 2 to Dexcom G7 as Lana is malfunctioning and having trouble getting readings. can start Ozempic 0.25 mg in combination. Will have patient follow up with early childhood special educator. Went over side effects of Ozempic including but not limited to nausea, vomiting and rare risk of pancreatitis (2) Dyslipidemia: Code(s): E78.5 - Hyperlipidemia, unspecified Plan: LDL not at goal on atorvastatin 80 mg q.d.. Will add ezetimibe 10 mg recheck lipid profile in 2 months Orders: Orders Lipid Panel 2 Months E78.5 - Hyperlipidemia, unspecified AMB Hemoglobin A1c Today E11.65 - Type 2 diabetes mellitus with hyperglycemia Medications: New semaglutide (Ozempic) for 4 weeks 0.25 mg (0.368 mL) subcut QWEEK 3 mL 5RF ezetimibe (Zetia) 10 mg PO DAILY 30 tabs 5RF Coding Level of Care Code Est Pt Level 4 (90710) Diagnoses Uncontrolled type 2 diabetes mellitus with hyperglycemia E11.65 Glycemic state: with hyperglycemia Dyslipidemia E78.5
[2023-08-30 13:51] VITALS: BP 102/60; PULSE 78; BMI 36.9
[2023-08-30 14:05] LABS: Glucose, Whole Blood 200 mg/dL (60-115)
== END 2023-08-30 15:06 | disposition home or self-care (01) ==
PROVIDERS: PCP Physician Assistant; Visit Provider Internal Medicine Endocrinology, Diabetes & Metabolism
DX: E11.65 Type 2 diabetes mellitus with hyperglycemia (principal); E78.5 Hyperlipidemia, unspecified
CPT/HCPCS: 99214

== ENCOUNTER → 2023-08-30 13:36 | Outpatient (BNVA) | payer OTHER, SELFPAY | PROVIDERS: PCP Physician Assistant; Visit Provider Internal Medicine Endocrinology, Diabetes & Metabolism | DX: E11.65 Type 2 diabetes mellitus with hyperglycemia (principal); E78.5 Hyperlipidemia, unspecified; Z79.4 Long term (current) 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; Z79.84 Long term (current) use of oral hypoglycemic drugs | CPT/HCPCS: 82947; 83036; 99211; 99212 ==

== ENCOUNTER 2023-08-30 15:00 | Outpatient (AMB) | payer OTHER, SELFPAY ==
--- NOTE | 2023-08-30 15:34 | MHC.AMDMED ---
Intake Intake Visit Reasons: dm Smoked Meat Preparer Required: No Accompanied by: Self / Same As Patient Allergies ibuprofen [From MOTRIN] Allergy (Intermediate, Verified 08/30/23 13:56) HIVES, Rash HPI Comprehensive Diabetes Asmnt Most Recent Diabetes Results: Hemoglobin A1c 8.8 % 05/14/18 Microalb/Creat Ratio TNP 04/03/23 Cholesterol 213 mg/dL (<200) H 08/21/23 HDL Cholesterol 32 mg/dL (>40) L 08/21/23 Triglycerides 304 mg/dL (<150) H 08/21/23 Creatinine 1.07 mg/dL (0.5-1.4) 01/31/22 Blood Urea Nitrogen 15 mg/dL (9-16) 01/31/22 Sodium 140 mmol/L (135-145) 01/31/22 Potassium 4.7 mmol/L (3.3-5.1) 01/31/22 Chloride 110 mmol/L (96-108) H 01/31/22 Carbon Dioxide 23 mmol/L (22-29) 01/31/22 Calcium 9.2 mg/dL (8.4-10.2) 01/31/22 AST 16 U/L (5-37) 02/05/21 ALT 23 U/L (0-40) 02/05/21 Total Protein 6.3 g/dL (6.5-8.0) L 02/05/21 Albumin 3.9 g/dL (3.5-5.0) 02/05/21 [facility] Medical History (Updated 08/28/23 @ 16:30 by Glen Reynolds MD) Obesity (BMI 30-39.9) Colon cancer screening Obese Annual physical exam Cardiomyopathy Gout of right knee History of [place] (myocardial infarction) GERD (gastroesophageal reflux disease) Asthma CHRIS (obstructive sleep apnea) Effusion, right knee Patellofemoral arthritis of right knee Acid reflux Hypertension Dyslipidemia 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 Diabetes type 2, uncontrolled Surgical History Hx of rotator cuff surgery History of ear surgery History of surgery on arm Hx of esophagogastroduodenoscopy Hx of colonoscopy Hx of knee surgery Family History Father Diabetes Mother Diabetes Social History Housing: Apartment Alcohol intake: never Patient Tobacco Use Status: Former Tobacco user Quit Date: 2006 Tobacco use type: Cigarette e-Cigarette/Vaping Use: Never Used Second Hand Smoke Exposure: No Substance Use Type: Marijuana service: No Current occupational status: disabled Current occupational exposures/hazards: No Cognitive needs: No Hearing needs: Yes (hearing aide) Vision needs: No Assessment & Plan Assessment & Plan (1) Diabetes type 2, uncontrolled: Code(s): E11.65 - Type 2 diabetes mellitus with hyperglycemia Qualifiers: Glycemic state: with hyperglycemia Qualified Code(s): E11.65 - Type 2 diabetes mellitus with hyperglycemia Plan: Patient at visit to set up an insert Dexcom G7 Instructed patient sensors water proof you can shower, or swim do not submerge sensor in water for over 30 minutes Is sensor falls off cannot put back in you need to replace sensor, customer service number given to patient for sensor replacement Patient believes switching from Lana 2 sensors, to Dexcom G7 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 Sensor placed on the back of R arm Patient left visit with sensor in warmup Reviewed how to interpret trend arrows Reminded patient that to check finger sticks if symptoms do not match sensor reading. Discussed lag time between finger stick and sensor data.? Instructed patient she should always keep blood glucometer for backup testing if needed Reviewed delay of CGM from fingersticks Reminded pt that if symptoms do not match sensor still needs to check fingersticks. Insulin/Incretin?Mimetic Education visit Patient Education: Patient will be starting Ozempic 0.25 mg weekly Patient was instructed and provided with demonstration of the following: Insulin action and Incretin Mimetics medication storage how to set up medication pen/or syringe and vial Handwashing insulin injection site rotation Site rotation recognizing hypertrophy Testing blood glucose Removing and disposing needle from insulin pen Safe disposal of sharps Target blood sugar Signs/ symptoms/treatment of hypoglycemia/hyperglycemia expiration of open insulin pen Patient verbalized understanding of education provided and was able to demonstrate proper use of inject into injection pillow Reviewed rule of 15s to treat glucose under 70 mg/dL All questions were answered and patient was advised to contact the office with any questions or concerns. Patient Instructions: Patient instruction: CGM provides information on blood glucose control throughout the day, including hyperglycemia and hypoglycemia. ? Continue to monitor blood glucose as instructed. Follow nutrition guidelines provided. Report any discomfort promptly to health care provider. ?Stay well-hydrated. You can bathe ,shower, swim and exercise while wearing the glucose sensor. Do not submerge glucose sensor in water for more than 30 minutes. Patient will follow-up with rn diabetes educator in 1 month Coding Level of Care Code Est Pt Level 1 (73058) Diagnoses Uncontrolled type 2 diabetes mellitus with hyperglycemia E11.65 Glycemic state: with hyperglycemia Results AMB Hemoglobin A1c AMB Hemoglobin A1c 10.5 % Last Edit by ELIDIA Botello on 08/30/23 14:12
== END 2023-08-30 15:36 | disposition home or self-care (01) ==
PROVIDERS: PCP Physician Assistant; Visit Provider Registered Nurse Diabetes Educator
DX: E11.65 Type 2 diabetes mellitus with hyperglycemia (principal)

== ENCOUNTER 2023-09-21 15:34 | Outpatient (AMB) | payer OTHER, SELFPAY ==
[2023-09-21 16:08] VITALS: BP 110/66; PULSE 96; RESP 16; O2SAT 95; BMI 37.3
--- NOTE | 2023-09-21 16:08 | A.OFFPC_ITS ---
Vital Signs 09/21/23 16:08 Height 5 ft 10 in Weight 260 lb 2 oz BMI 37.3 BP 110/66 Blood Pressure Location Lt brachial Position Sitting Respiration 16 Pulse 96 Pulse Source Pulse Oximeter Pulse Oximetry (%) 95 Oxygen Delivery Method Room Air Intake Visit Reasons: Annual Exam Intake Note: Patient is here today for a physical. Insurance Follow Up Rep Required: No Accompanied by: Self / Same As Patient Allergies ibuprofen [From MOTRIN] Allergy (Intermediate, Verified 09/21/23 16:14) HIVES, Rash Medication List - Last Reconciled 09/21/23 by Deejay Gonzalez PA-C albuterol sulfate 90 mcg/actuation 2 puffs inhalation Q4-6H PRN aspirin (Adult Aspirin Regimen) 81 mg PO DAILY 90 days atorvastatin 80 mg PO BEDTIME 90 days bisacodyl (Dulcolax (bisacodyl)) 20 mg (4 x 5 mg) PO ONCE 1 day blood sugar diagnostic (FreeStyle Lite Strips) As directed four times a day blood-glucose meter (FreeStyle Lite Meter kit) As directed 3x/day dapagliflozin propanediol (Farxiga) 10 mg PO DAILY ezetimibe (Zetia) 10 mg PO DAILY flash glucose scanning reader ([employer] Lana 2 Wiley) As directed fluticasone propionate 110 mcg/actuation (Flovent HFA) 2 puffs inhalation BID 30 days insulin aspart U-100 (Novolog FlexPen U-100 Insulin aspart) 25 - 45 units (0.25 - 0.45 mL) subcut TID 30 days insulin degludec (Tresiba FlexTouch U-200 insulin) 100 units (0.5 mL) subcut DAILY 30 days lancets (FreeStyle Lancets) Three times a day metformin ER 1,000 mg (2 x 500 mg) PO BID 90 days methylcellulose (laxative) (Citrucel) 500 mg PO TID metoprolol succinate ER 100 mg PO DAILY 90 days omeprazole 20 mg PO DAILY peg 3350-electrolytes 236-22.74-6.74 -5.86 gram 240 mL PO Q10M pen needle, diabetic (BD Ultra-Fine Billie Pen Needle) 1 ea subcut QID 30 days sacubitril-valsartan 49-51 mg (Entresto) 0.5 tabs PO BID salmeterol (Serevent Diskus) 1 inh inhalation BID 30 days semaglutide (Ozempic) 0.25 mg (0.368 mL) subcut QWEEK spironolactone 25 mg PO DAILY Vascepa (icosapent ethyl) 2 grams (2 x 1 gram) PO BID NS Tobacco use date assessed: 09/21/23 Dental Screening Dental Screen Date: 09/21/23 Did you have a dental visit in the last 12 months?: Yes Did you have a dental problem in the last 6 months where you did not have access to dental care?: No Was dental information given to patient?: Patient has dentist HPI Annual Exam HPI Details Patient is a 48-year-old male here today for an annual physical. Patient has a past medical history significant for diabetes, GERD, obesity,? systolic heart failure, asthma, mild obstructive sleep apnea, hyperlipidemia. CONCERN--> reports difficulty retracting his foreskin, has noted some weight striated scratches over his foreskin. He has had this issue in the past and sending urologist though was not a candidate for surgical procedure due to his uncontrolled diabetes. .. Type 2 diabetes:? Has reestablish care with [facility]. Most recent A1c at 10.5. Has been started on GLP 1 reports his sugars have been better. Also has a new continues glucose monitor which has been helpful on glycemic control. Usual dose of metformin is a 1000 b.i.d.. He does report recently having high blood sugars and does report polydipsia and polyuria. // Asthma:? 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 Continues on maintenance inhaler and daily basis. .. CHF:? Patient is followed by skating carhop (dr. Loznao). From a cardiovascular point of view has been stable.? He denies any chest discomforts, shortness of breath or rapid weight gain.? He does get by annual echocardiograms. Reports he need a coronary artery scan due to complaints of intermittent chest pains. 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 Diabetes type 2, uncontrolled Surgical History Hx of rotator cuff surgery History of ear surgery History of surgery on arm Hx of esophagogastroduodenoscopy Hx of colonoscopy Hx of knee surgery Family History Father Diabetes Mother Diabetes Social History (Updated 09/21/23 @ 16:20 by Deejay Gonzalez PA-C) Housing: Apartment Alcohol intake: never Patient Tobacco Use Status: Former Tobacco user Quit Date: 2006 Tobacco use type: Cigarette e-Cigarette/Vaping Use: Never Used Second Hand Smoke Exposure: No Substance Use Type: Marijuana service: No Current occupational status: disabled Current occupational exposures/hazards: No Cognitive needs: No Hearing needs: Yes (hearing aide) Vision needs: No Questionnaire PHQ-9 Over the last 2 weeks, how often have you been bothered by any of the following problems? 1. Little interest or pleasure in doing things: not at all 2. Feeling down, depressed, or hopeless: not at all 3. Trouble falling or staying asleep, or sleeping too much: not at all 4. Feeling tired or having little energy: not at all 5. Poor appetite or overeating: not at all 6. Feeling bad about yourself - or that you are a failure or have let yourself or your family down: not at all 7. Trouble concentrating on things, such as reading the newspaper or watching television: not at all 8. Moving or speaking so slowly that other people could have noticed. Or the opposite - being so fidgety or restless that you have been moving around a lot more than usual: not at all 9. Thoughts that you would be better off or of hurting yourself in some way: not at all Total score: 0 Depression Screening Interpretation: Negative Depression Screening Done: Yes 37334 - PHQ-9 Billing: Yes Source: Developed by Drs. Adarsh Beatty, Adina Faria, Tano Martinez and colleagues, with an educational oscar from [employer]. Thrive Questionnaire Date Thrive assessed: 09/21/23 I am a: Patient What is your living situation today?: I have a steady place to live Within the past 12 months, did the food you bought not last and you didn't have the money to get more?: Never true Within the past 12 months, did you worry whether your food would run out before you got money to buy more?: Never true Do you have trouble paying for medicines?: No Do you have trouble getting transportation to medical appointments?: No Do you have trouble paying your heating and electricity bill?: No Do you have trouble taking care of your child, family member or friend?: No Do you have trouble with day-to-day activities such as bathing, preparing meals, shopping, managing finances, etc.?: No Are you currently unemployed and looking for a job?: No Are you interested in more education?: No Please select the resources that you would like help with: None Currently or been in a relationship where the following occur: no concerns reported THRIVE Score: 0 AUDIT C Alcohol Use Questionnaire (AUDIT-C) 1. How often do you have a drink containing alcohol?: Never 3. How often do you have six or more drinks on one occasion?: Never Total Score: 0 Score Reviewed/Action Taken: No BERNADETTE-7 AMB Questionnaire BERNADETTE-7 Date BERNADETTE - 7 assessed: 09/21/23 Feeling nervous, anxious, or on edge: 0 = Not at all Not being able to stop or control worryin = Not at all Worrying too much about different things: 0 = Not at all Trouble relaxin = Not at all Being so restless that it is hard to sit still: 0 = Not at all Becoming easily annoyed or irritable: 0 = Not at all Feeling afraid as if something awful might happen: 0 = Not at all Total BERNADETTE-7 score (0-4 normal; 5-9 mild; 10-14 moderate; 15-21 severe): 0 Source: Developed by Drs. Adarsh Beatty, Adina Faria, Tano Martinez and colleagues, with an educational oscar from [employer]. BERNADETTE-7 Assessment Billing BERNADETTE-7 Assessment Tool: BERNADETTE-7 Assessment 31760 Review of Systems Const Denies body aches, Denies chills, Denies excessive sweating, Denies fatigue, Denies fever(s) and Denies headache(s) Eyes Denies blurry vision ENT Denies dysphagia, Denies vertigo, Denies dizziness, Denies headache(s), Denies hearing loss and Denies tinnitus Card Denies chest pain, Denies chest pain with activity, Denies syncope, Denies irregular heart rhythm and Denies dyspnea Resp Denies chest congestion, Denies cough, Denies hemoptysis, Denies dyspnea and Den ies wheezing GI Denies abdominal pain, Denies melena, Denies hematochezia, Denies coffee ground emesis, Denies dysphagia, Denies diarrhea, Denies nausea and Denies vomiting Denies difficulty urinating, Denies dysuria, Denies urinary frequency, Denies urinary hesitancy and Denies urinary urgency Musc Denies arthralgias, Denies limited range of motion, Denies muscle cramps and Denies muscle weakness Skin/Breast Denies rash and Denies skin ulcer Neuro Denies Abnormal speech present, Denies confusion, Denies vertigo, Denies dizziness, Denies syncope, Denies headache(s), Denies memory loss and Denies seizure-like activity Psych Denies anxiety, Denies confusion, Denies depression, Denies memory loss, Denies panic attacks and Denies paranoia Endo Denies excessive sweating, Denies fatigue, Denies flushing, Denies polydipsia and Denies polyuria Aller/Immun Denies wheezing Physical exam (Primary Care) Vital Signs: Last Vital Signs Pulse 96 09/21/23 16:08 Resp 16 09/21/23 16:08 BP 110/66 09/21/23 16:08 Pulse Ox 95 09/21/23 16:08 Oxygen Delivery Method Room Air 09/21/23 16:08 BMI result Body Mass Index 37.3 BMI Assessment/Plan discussion: High Tobacco/Smoking Status: Tobacco use Status Tobacco use date assessed 09/21/23 09/21/23 16:12 Patient Tobacco Use Status Former Tobacco user 09/21/23 16:20 Tobacco use type Cigarette 09/21/23 16:20 e-Cigarette/Vaping Use Never Used 09/21/23 16:20 PHQ-9: PHQ-9 Score PHQ-9: Total score 0 09/21/23 16:23 Depression Screening Interpretation: Negative Thrive Assessment: Date of Thrive Assessment Date Thrive assessed 09/21/23 09/21/23 16:14 Currently or been in a relationship where the following occur: no concerns reported Const Other: Obese General: cooperative, comfortable, no acute distress, alert and awake; No confusion Orientation/consciousness: oriented to person, oriented to place, patient oriented x3 and No confusion HENMT Head: Yes normocephalic Ears: external ears normal and TM's normal bilaterally Face and sinus: No sinus tenderness Mouth: Normal oral and palatal mucosa present and tongue normal Teeth and gingiva: dentition normal and gingiva normal Throat: Yes posterior oropharynx normal, Yes tonsils normal and Yes uvula midline Eyes Conjunctivae: conjunctivae normal Sclerae: sclerae normal Pupils: Equal, round and reactive pupils present EOM: EOMs intact bilaterally Direct Ophthalmoscopy: No no photophobia Neck Neck: Yes no lymphadenopathy, No tender and Yes no JVD Thyroid: Thyroid normal Carotids: no bruits Chest Chest palpation & inspection: no tenderness Resp Effort & Inspection: normal respiratory effort, no audible wheezes, not labored and no stridor Auscultation: no crackles, no rales, no rhonchi and no wheezes Cardio Jugular venous distension: no JVD Rate: regular rate, not bradycardic and not tachycardic Rhythm: regular rhythm Bruits: no carotid bruits Peripheral pulses: Peripheral pulses 2+ throughout GI Inspection: Yes normal to inspection, No abdominal wall ecchymosis and No visible herniation Palpation (GI): Soft to palpation, nontender, no guarding, not rigid and No hepatosplenomegaly present Auscultation: normoactive bowel sounds General: Yes no CVA tenderness Back/Spine/Pelvis Back: no CVA tenderness and No back tenderness Cervical Spine: cervical ROM normal Thoracic/Lumbar Spine: thoracic and lumbar spine normal to inspection, straight leg raise negative bilaterally, No thoraco-lumbar ROM limited and No lumbar spinal tenderness Skin Lesions: no lesions Rashes: no rashes Wounds: no wounds Neuro General: oriented to person, oriented to place, patient oriented x3, CN's II-XI intact bilaterally and No confusion Cranial nerves: Yes Equal, round and reactive pupils present and Yes Normal accommodation reflex present Cognition (Neuro): normal cognition Speech: No Abnormal speech present Gait exam (Neuro): Normal gait present Motor exam (neuro): 5/5 motor strength present throughout Extrem Right upper extremity: full ROM; no cyanosis Left upper extremity: full ROM; no cyanosis Right lower extremity: no edema Left lower extremity: no edema Psych Appearance: grossly normal Mental Status: mental status grossly normal Affect: normal affect Attitude: cooperative Thought process: Normal thought process present Assessment and Plan Assessment & Plan (1) Annual physical exam: Code(s): Z00.00 - Encounter for general adult medical examination without abnormal findings (2) CHF (congestive heart failure), NYHA class II: Code(s): I50.9 - Heart failure, unspecified Qualifiers: Congestive heart failure chronicity: chronic Congestive heart failure type: systolic Qualified Code(s): I50.22 - Chronic systolic (congestive) heart failure Plan: Patient continues to follow cardiology (Dr. Lozano) Clinically and symptomatic and euvolemic here today in office. Did report intermittent episodes chest pain in his skating carhop will be setting of coronary artery scanned. (3) Diabetes type 2, uncontrolled: Code(s): E11.65 - Type 2 diabetes mellitus with hyperglycemia Qualifiers: Glycemic state: with hyperglycemia Qualified Code(s): E11.65 - Type 2 diabetes mellitus with hyperglycemia Plan: Patient's type 2 diabetes uncontrolled. Most recent A1c at 10.5. Patient has been out of metformin and needs refill. He has reestablish care with endocrinology and health educator. . He now has a new continues glucose monitor which has been helpful for glyce tim control. Recently started on Ozempic. 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 Will continues current dose of antihypertensive medication with goal blood pressure to be below 140/90 (6) Dyslipidemia: Code(s): E78.5 - Hyperlipidemia, unspecified Plan: Patient continues on high potency statin. Additional cholesterol medication has been added due to elevations in his triglycerides. Advised to get fasting lipids done as soon as possible to evaluate for an appropriate LDL. Goal to LDL to be below 100 (7) Obese: Code(s): E66.9 - Obesity, unspecified Qualifiers: Body mass index: BMI 35.0-35.9 Obesity classification: adult class 2 (BMI 35 - 39.9) Obesity type: due to excess calories Serious obesity comorbidity presence: with serious comorbidity Qualified Code(s): E66.01 - Morbid (severe) obesity due to excess calories; Z68.35 - Body mass index [BMI] 35.0-35.9, adult Plan: Patient does understand his BMI is over 30 will work on being more physically active and adapting to better eating habits to reduce his weight. (8) Erectile dysfunction: Code(s): N52.9 - Male erectile dysfunction, unspecified Qualifiers: Erectile dysfunction type: due to other cause Qualified Code(s): N52.8 - Other male erectile dysfunction (9) Phimosis: Code(s): N47.1 - Phimosis Orders: Orders Comprehensive [place]. Panel Fast 09/21/23 E11.65 - Type 2 diabetes mellitus with hyperglycemia Complete Blood Count no Diff 09/21/23 K21.9 - Gastro-esophageal reflux disease without esophagitis Lipid Panel 09/21/23 I50.22 - Chronic systolic (congestive) heart failure Prostate Specific Antigen Scr 09/21/23 I50.22 - Chronic systolic (congestive) heart failure, Z12.5 - Encounter for screening for malignant neoplasm of prostate Referrals Urology Referral N47.1 - Phimosis Medications: New nystatin 1 appl topical DAILY 30 days 30 grams 0RF N47.1 - Phimosis, N48.1 - Balanitis miscellaneous medical supply NEED FOR REMOVAL WILL SHOWER HEAD 1 ea miscellaneous DAILY 99 days 1 ea 0RF E11.65 - Type 2 diabetes mellitus with hyperglycemia, M51.9 - Unspecified thoracic, thoracolumbar and lumbosacral intervertebral disc disorder miscellaneous medical supply NEED FOR REMOVALABLE SHOWER HEAD 1 ea miscellaneous DAILY 99 days 1 ea 0RF E11.65 - Type 2 diabetes mellitus with hyperglycemia, M51.9 - Unspecified thoracic, thoracolumbar and lumbosacral intervertebral disc disorder sildenafil administer 30 minutes to 4 hours before activity 100 mg PO DAILY 7 days PRN 7 tabs 0RF sexual activity N52.8 - Other male erectile dysfunction Coding Level of Care Code Est Pt Prev Care 40-64y(22961) Diagnoses Annual physical exam Z00.00 Chronic systolic congestive heart failure, NYHA class 2 I50.22 Congestive heart failure chronicity: chronic Congestive heart failure type: systolic Uncontrolled type 2 diabetes mellitus with hyperglycemia E11.65 Glycemic state: with hyperglycemia 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 Z79.4 Essential hypertension I10 Hypertension type: essential hypertension Dyslipidemia E78.5 Class 2 severe obesity due to excess calories with serious comorbidity and body mass index (BMI) of 35.0 to 35.9 in adult E66.01; Z68.35 Body mass index: BMI 35.0-35.9 Obesity classification: adult class 2 (BMI 35 - 39.9) Obesity type: due to excess calories Serious obesity comorbidity presence: with serious comorbidity Other male erectile dysfunction N52.8 Erectile dysfunction type: due to other cause Phimosis N47.1 Additional Codes BERNADETTE-7 Assessment Billing - BERNADETTE-7 Assessment Tool: BERNADETTE-7 Assessment [id number] ([id number])
== END 2023-09-21 16:42 | disposition home or self-care (01) ==
PROVIDERS: PCP Physician Assistant; Visit Provider Physician Assistant
DX: Z00.00 Encounter for general adult medical examination without abnormal findings (principal); I50.22 Chronic systolic (congestive) heart failure; E11.65 Type 2 diabetes mellitus with hyperglycemia; Z79.4 Long term (current) 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; E66.01 Morbid (severe) obesity due to excess calories; Z68.35 Body mass index [BMI] 35.0-35.9, adult; I10 Essential (primary) hypertension; E78.5 Hyperlipidemia, unspecified; N52.8 Other male erectile dysfunction; N47.1 Phimosis
CPT/HCPCS: 99396

== ENCOUNTER 2023-09-28 14:11 | Outpatient (AMB) | payer OTHER, SELFPAY ==
--- NOTE | 2023-09-28 15:02 | A.OFFVIS_ITS ---
Intake Intake Visit Reasons: 60 min [facility] Hospice Required: No Accompanied by: Self / Same As Patient Allergies ibuprofen [From MOTRIN] Allergy (Intermediate, Verified 09/21/23 16:14) HIVES, Rash HPI Comprehensive Diabetes Asmnt Most Recent Diabetes Results: Hemoglobin A1c 8.8 % 05/14/18 Microalb/Creat Ratio TNP 04/03/23 Cholesterol 213 mg/dL (<200) H 08/21/23 HDL Cholesterol 32 mg/dL (>40) L 08/21/23 Triglycerides 304 mg/dL (<150) H 08/21/23 Creatinine 1.07 mg/dL (0.5-1.4) 01/31/22 Blood Urea Nitrogen 15 mg/dL (9-16) 01/31/22 Sodium 140 mmol/L (135-145) 01/31/22 Potassium 4.7 mmol/L (3.3-5.1) 01/31/22 Chloride 110 mmol/L (96-108) H 01/31/22 Carbon Dioxide 23 mmol/L (22-29) 01/31/22 Calcium 9.2 mg/dL (8.4-10.2) 01/31/22 AST 16 U/L (5-37) 02/05/21 ALT 23 U/L (0-40) 02/05/21 Total Protein 6.3 g/dL (6.5-8.0) L 02/05/21 Albumin 3.9 g/dL (3.5-5.0) 02/05/21 [facility] Medical History (Updated 09/25/23 @ 07:25 by Deejay Gonzalez PA-C) Annual physical exam Obesity (BMI 30-39.9) Colon cancer screening Obese Cardiomyopathy Gout of right knee History of [place] (myocardial infarction) GERD (gastroesophageal reflux disease) Asthma CHRIS (obstructive sleep apnea) Effusion, right knee Patellofemoral arthritis of right knee Acid reflux Hypertension Dyslipidemia 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 Diabetes type 2, uncontrolled Surgical History Hx of rotator cuff surgery History of ear surgery History of surgery on arm Hx of esophagogastroduodenoscopy Hx of colonoscopy Hx of knee surgery Family History Father Diabetes Mother Diabetes Social History (Updated 09/21/23 @ 16:20 by Deejay Gonzalez PA-C) Housing: Apartment Alcohol intake: never Patient Tobacco Use Status: Former Tobacco user Quit Date: 2006 Tobacco use type: Cigarette e-Cigarette/Vaping Use: Never Used Second Hand Smoke Exposure: No Substance Use Type: Marijuana service: No Current occupational status: disabled Current occupational exposures/hazards: No Cognitive needs: No Hearing needs: Yes (hearing aide) Vision needs: No Assessment & Plan Assessment & Plan (1) Diabetes type 2, uncontrolled: Code(s): E11.65 - Type 2 diabetes mellitus with hyperglycemia Qualifiers: Glycemic state: with hyperglycemia Qualified Code(s): E11.65 - Type 2 diabetes mellitus with hyperglycemia Plan: Learning objectives: The patient was provided with verbal and written education on the following topics as outlined below. Assess patient education level/literacy/barriers Patient questions/concerns, patient has started Ozempic to 0.25 mg approximately 3 weeks ago, reports slight nausea, and headache when eats high carbohydrate or high fat foods Patient using Dexcom G7 to monitor glucose Average glucose for the past 2 weeks 237 mg/dL Patient above target 87% Patient at target 18% Patient below target 0% Patient is interested in increasing Ozempic dose, message sent to Dr. Dolan to increase from 0.25 mg to 0.5 mg weekly The patient met all learning objectives and was able to verbalize understanding and provide teach back of education topics discussed . The patient was provided with the opportunity to ask questions and all questions were answered. Topics covered in today?s session included: Medications (If applicable) * Name of medication? * Dosing/administration instructions? * Mechanism of action? * Potential side effects? * Potential adverse reaction and appropriate treatment? * Review onset, peak, duration Assess for concerns re: insurance coverage, cost, barriers to compliance Insulin/Injectables (If applicable) * Storage/care of insulin?? * Injection sites? * Site rotation? * Onset, peak, duration * Drawing up insulin? * Injecting insulin/other injectables? * Sharps disposal Continuous blood glucose monitoring (if applicable) Hypoglycemia and Hyperglycemia * Signs and symptoms? * Causes?? * Treatment? * Preventing hypoglycemia? * When to seek medical attention * Blood glucose targets and how you feel when your blood glucose is in and out of your target ranges. * Monitoring and knowing your A1C. * What can make blood glucose go up and down and preventing high and low blood glucose. * Review of blood sugar targets in expected goal range and outside of expected goal range. * Problem solving and preventing hyper/hypoglycemia. * Sick day management of diabetes. * Using blood sugar results in decision making process in managing diabetes. ?Patient was receptive to information provided and participated in the discussion. Asked?appropriate questions and demonstrated good understanding of the topics discussed.? ? Educational Materials: The patient was provided with the following written educational materials: Target Goal handout Smart Goal: Patient will increase Ozempic dose from 0.25-0.5 mg weekly Patient Response to instructions: Comprehension of Instructions: fair Readiness to make changes:? Contemplation How confident they feel about making changes:positve Patient Instructions: Patient will with wellness educator in 6 weeks Coding Level of Care Code Est Pt Level 1 (94094) Diagnoses Uncontrolled type 2 diabetes mellitus with hyperglycemia E11.65 Glycemic state: with hyperglycemia
== END 2023-09-28 15:08 | disposition home or self-care (01) ==
PROVIDERS: PCP Physician Assistant; Visit Provider Registered Nurse Diabetes Educator
DX: E11.65 Type 2 diabetes mellitus with hyperglycemia (principal)

== ENCOUNTER → 2023-09-28 14:11 | Outpatient (BNVA) | payer OTHER, SELFPAY | PROVIDERS: PCP Physician Assistant; Visit Provider Registered Nurse Diabetes Educator | DX: E11.65 Type 2 diabetes mellitus with hyperglycemia (principal) | CPT/HCPCS: 99211 ==

== ENCOUNTER 2023-12-25 06:00 | Outpatient (REF) | payer OTHER, SELFPAY ==
[2023-12-25 07:50] LABS: Hematocrit 47.7 % (42.0-52.0); Hemoglobin 15.4 g/dl (14.0-18.0); Mean Corpuscular HGB Conc 32.3 g/dl (31.0-36.0); Mean Corpuscular Hemoglobin 28.7 pg (27.0-33.0); Platelet Count 192 X10*3/uL (160-400); Red Blood Count 5.36 X10*6/uL (4.60-5.80); Red Cell Distribution Width 13.9 % (11.0-16.0); White Blood Count 6.7 X10*3/uL (4.8-10.8)
[2023-12-25 08:29] LABS: Alanine Aminotransferase 31 U/L (0-40); Albumin Level 3.9 g/dL (3.5-5.0); Alkaline Phosphatase 68 U/L (39-117); Anion Gap 18 (12-20); Aspartate Amino Transferase 23 U/L (5-37); Bilirubin Total 0.3 mg/dL (0.0-1.0); Blood Urea Nitrogen 18 mg/dL (9-16); Calcium 9.4 mg/dL (8.4-10.2); Carbon Dioxide 21 mmol/L (22-29); Chloride 110 mmol/L (96-108); Cholesterol 126 mg/dL (<200); Estimated Glomerular Filt Rate > 60; Glucose Fasting 164 mg/dL (60-99); HDL Cholesterol 26 mg/dL (>40); LDL Cholesterol Calculated 67 mg/dL (<100); Potassium 3.9 mmol/L (3.3-5.1); Sodium 145 mmol/L (135-145); Total Protein 6.6 g/dL (6.5-8.0); Triglycerides 167 mg/dL (<150)
[2023-12-25 08:45] LABS: Prostate Specific Antigen Scr 0.72 ng/mL (<0.05-4.0)
== END 2023-12-25 06:01 | disposition home or self-care (01) ==
LOC: HO.LAB 06:00
PROVIDERS: Absent Provider Internal Medicine Endocrinology, Diabetes & Metabolism; PCP Physician Assistant; Visit Provider Physician Assistant
DX: E78.5 Hyperlipidemia, unspecified (principal); I50.22 Chronic systolic (congestive) heart failure; K21.9 Gastro-esophageal reflux disease without esophagitis; E11.65 Type 2 diabetes mellitus with hyperglycemia; Z12.5 Encounter for screening for malignant neoplasm of prostate
CPT/HCPCS: 36415; 80053; 80061; 84153; 85027

== ENCOUNTER 2024-01-01 14:47 | Outpatient (AMB) | payer OTHER, SELFPAY ==
[2024-01-01 14:49] VITALS: BP 106/74; PULSE 88; BMI 35.8
--- NOTE | 2024-01-01 14:49 | MHC.OFFVIS ---
Vital Signs 01/01/24 14:49 Height 5 ft 10 in Weight 249 lb 12.54 oz BMI 35.8 BP 106/74 Blood Pressure Location Lt brachial Position Sitting Pulse 88 Pulse Source Pulse Oximeter Intake Visit Reasons: f/u Type 2 DM-lvm Intake Note: Patient present today to follow up on Type 2 Diabetes Mellitus. Patient receives DME supplies through: [employer] Last Diabetic Eye exam: 10/17/2023 [facility] Last Podiatry Visit: Doesn't have one Random Glucose: 114 mg/dl HgA1C: 8.0% Environmental Laboratory Technician Required: No Accompanied by: Self / Same As Patient Allergies ibuprofen [From MOTRIN] Allergy (Intermediate, Verified 01/01/24 14:54) HIVES, Rash Medication List - Last Reconciled 01/01/24 by Adarsh Dolan MD albuterol sulfate 90 mcg/actuation 2 puffs inhalation Q4-6H PRN aspirin (Adult Aspirin Regimen) 81 mg PO DAILY 90 days atorvastatin 80 mg PO BEDTIME 90 days bisacodyl (Dulcolax (bisacodyl)) 20 mg (4 x 5 mg) PO ONCE 1 day blood sugar diagnostic (FreeStyle Lite Strips) As directed four times a day blood-glucose meter (FreeStyle Lite Meter kit) As directed 3x/day dapagliflozin propanediol (Farxiga) 10 mg PO DAILY ezetimibe (Zetia) 10 mg PO DAILY flash glucose scanning reader (FreeStyle Lana 2 Frontier) As directed fluticasone propionate 110 mcg/actuation (Flovent HFA) 2 puffs inhalation BID 30 days insulin aspart U-100 (Novolog FlexPen U-100 Insulin aspart) 25 - 45 units (0.25 - 0.45 mL) subcut TID 30 days insulin degludec (Tresiba FlexTouch U-200 insulin) 100 units (0.5 mL) subcut DAILY 30 days lancets (FreeStyle Lancets) Three times a day metformin ER 1,000 mg (2 x 500 mg) PO BID 90 days methylcellulose (laxative) (Citrucel) 500 mg PO TID metoprolol succinate ER 100 mg PO DAILY 90 days miscellaneous medical supply 1 ea miscellaneous DAILY 99 days nystatin 1 appl topical DAILY 30 days omeprazole 20 mg PO DAILY peg 3350-electrolytes 236-22.74-6.74 -5.86 gram 240 mL PO Q10M pen needle, diabetic (BD Ultra-Fine Billie Pen Needle) 1 ea subcut QID 30 days sacubitril-valsartan 49-51 mg (Entresto) 0.5 tabs PO BID salmeterol (Serevent Diskus) 1 inh inhalation BID 30 days semaglutide (Ozempic) 0.5 mg (0.736 mL) subcut QWEEK sildenafil 100 mg PO DAILY PRN 7 days spironolactone 25 mg PO DAILY Vascepa (icosapent ethyl) 2 grams (2 x 1 gram) PO BID NS HPI Comments Details: Patient is 48-year-old male with DM type 2 diagnosed at the age 14 by who presents for management of diabetes. Past medical history: Diabetes type 2, hyperlipidemia, hypertension, obesity, CHRIS, asthma Micro and macrovascular complications: nephropathy, CVD Diabetes medications: Tresiba 100 units, NovoLog 25 units prior to meals plus an additional 4 units for blood glucose over 200, + 6 for bg over 250, +8 for bg over 300, + 10 for bg over 350, metformin ER 500 mg 2 pills twice a day, Farxiga 10mg. Ozempic 0.5 mg Qwkly Intolerant of Trulicity due to constipation that causes rupture of polyp. Dexcom download shows she has using the sensor 100% of the time. Average glucose is 200 with G mi of 8.1% and standard deviation 62. 45% range with 32% hyperglycemia and 22% very hyperglycemic and less than 1% hypoglycemia Symptoms reported: deneisnumbness, tingling, cramping in lower extremities Hypoglycemia: rare Hyperglycemia: occasional urinary frequency, denies nocturia, denies polydypsia Exercise: walking 1/2 - 2 hours most days. Supervisor Inspection Department - CDE education: i seeing presently Construction Stonemason: 2 months ago Ophthalmology evaluation: appt 08/2023 Laboratory Tests 09/16/21 16:37 Hgb A1c (Clinic) 10.5 H 02/05/21 02/05/21 06:10 06:10 Creatinine 0.91 Estimated GFR > 60 Hemoglobin A1c % 11.4 Triglycerides 118 Cholesterol 137 LDL Cholesterol, Calc 85 HDL Cholesterol 29 TSH 1.32 [facility] Medical History (Updated 09/25/23 @ 07:25 by Deejay Gonzalez PA-C) Annual physical exam Obesity (BMI 30-39.9) Colon cancer screening Obese Cardiomyopathy Gout of right knee History of [place] (myocardial infarction) GERD (gastroesophageal reflux disease) Asthma CHRIS (obstructive sleep apnea) Effusion, right knee Patellofemoral arthritis of right knee Acid reflux Hypertension Dyslipidemia alf (current) 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 Diabetes type 2, uncontrolled Surgical History Hx of rotator cuff surgery History of ear surgery History of surgery on arm Hx of esophagogastroduodenoscopy Hx of colonoscopy Hx of knee surgery Family History Father Diabetes Mother Diabetes Social History (Updated 09/21/23 @ 16:20 by Deejay Gonzalez PA-C) Housing: Apartment Alcohol intake: never Patient Tobacco Use Status: Former Tobacco user Tobacco use type: Cigarette e-Cigarette/Vaping Use: Never Used Second Hand Smoke Exposure: No Substance Use Type: Marijuana service: No Current occupational status: disabled Current occupational exposures/hazards: No Cognitive needs: No Hearing needs: Yes (hearing aide) Vision needs: No Physical Exam Vital Signs: Last Vital Signs Pulse 88 01/01/24 14:49 BP 106/74 01/01/24 14:49 BMI result Body Mass Index 35.8 Absence of Cushingoid features. Absence of acromegalic features. Neck exam reveals nl size thyroid about 15 gms. No thyroid nodules palpable. No carotid bruits present. Lungs CTA. Heart S1 S2, Reg R/R. No M/R/ G. Skin exam reveals absence of vitiligo or acanthosis nigricans. Abdominal exam reveals Soft NT/ND with NA BS. No organomegaly present. Neck Other: . Extrem Other: Visual exam of foot performed. No ulcerations or open lesions. No onchomycosis, no callouses.Pulses 2 + distally Sensation intact to monofilament exam. Vibratory sensation sensed is intact with 128 Hz tuning fork Results AMB Hemoglobin A1c AMB Hemoglobin A1c 8.0 % Last Edit by ELIDIA Botello on 01/01/24 15:12 Results Reviewed Results Reviewed: Laboratory Last Values Glucose (Clinic) 114 mg/dL (60-115) 01/01/24 14:58 Assessment & Plan Assessment & Plan (1) Diabetes type 2, uncontrolled: Code(s): E11.65 - Type 2 diabetes mellitus with hyperglycemia Category: Medical Qualifiers: Glycemic state: with hyperglycemia Qualified Code(s): E11.65 - Type 2 diabetes mellitus with hyperglycemia Plan: This is a 48-year-old male with a history of type 2 diabetes being treated with metformin, Farxiga and basal-bolus insulin with poor glycemic control with known microvascular macrovascular complications namely CKD and coronary artery disease. Plan is to increase the Ozempic to 1 mg Q weekly. Told patient to report any hypoglycemia for adjustment of insulin. Patient is going to follow-up with the primary care diabetic team in about 6 weeks' time (2) Dyslipidemia: Code(s): E78.5 - Hyperlipidemia, unspecified Category: Medical Plan: LDL not at goal on atorvastatin 80 mg q.d.. Will add ezetimibe 10 mg recheck lipid profile in 2 months Orders: Orders AMB Hemoglobin A1c Today E11.65 - Type 2 diabetes mellitus with hyperglycemia, Z13.9 - Encounter for screening, unspecified Medications: New semaglutide (Ozempic) 1 mg (0.75 mL) subcut QWEEK 3 mL 5RF Discontinued semaglutide (Ozempic) for 4 weeks Discontinued Reason: Doctor's Order 0.5 mg (0.736 mL) subcut QWEEK 3 mL 5RF Coding Level of Care Code Est Pt Level 4 (81732) Diagnoses Uncontrolled type 2 diabetes mellitus with hyperglycemia E11.65 Glycemic state: with hyperglycemia Dyslipidemia E78.5
[2024-01-01 15:02] LABS: Glucose, Whole Blood 114 mg/dL (60-115)
== END 2024-01-01 15:13 | disposition home or self-care (01) ==
PROVIDERS: PCP Physician Assistant; Visit Provider Internal Medicine Endocrinology, Diabetes & Metabolism
DX: Z13.9 Encounter for screening, unspecified (principal); E11.65 Type 2 diabetes mellitus with hyperglycemia; E78.5 Hyperlipidemia, unspecified
CPT/HCPCS: 99214

== ENCOUNTER → 2024-01-01 14:47 | Outpatient (BNVA) | payer OTHER, SELFPAY | PROVIDERS: PCP Physician Assistant; Visit Provider Internal Medicine Endocrinology, Diabetes & Metabolism | DX: E11.65 Type 2 diabetes mellitus with hyperglycemia (principal); E78.5 Hyperlipidemia, unspecified | CPT/HCPCS: 82947; 83036; 99212 ==

== ENCOUNTER 2024-02-23 13:53 | Outpatient (AMB) | payer OTHER, SELFPAY ==
--- NOTE | 2024-02-23 13:56 | A.OFFVIS_ITS ---
Vital Signs 02/23/24 13:57 Height 5 ft 10 in Weight 244 lb 11.41 oz BMI 35.1 BP 106/68 Blood Pressure Location Rt brachial Position Sitting Pulse 96 Pulse Source Pulse Oximeter Intake Visit Reasons: Type 2 DM/CONFIRMED Intake Note: Patient presents today for [facility] follow up visit. Last Diabetic Eye exam: Last Podiatry Visit: Does not see a Mill [place] Random Glucose: 153mg/dl HgA1c: 8.0% 01/01/24 Night Shift Manager Required: No Accompanied by: Self / Same As Patient Allergies ibuprofen [From MOTRIN] Allergy (Intermediate, Verified 02/23/24 13:56) HIVES, Rash Medication List - Last Reconciled 02/23/24 by Dayana Kim PA-C albuterol sulfate 90 mcg/actuation 2 puffs inhalation Q4-6H PRN aspirin (Adult Aspirin Regimen) 81 mg PO DAILY 90 days atorvastatin 80 mg PO BEDTIME 90 days bisacodyl (Dulcolax (bisacodyl)) 20 mg (4 x 5 mg) PO ONCE 1 day blood sugar diagnostic (FreeStyle Lite Strips) As directed four times a day blood-glucose meter (FreeStyle Lite Meter kit) As directed 3x/day dapagliflozin propanediol (Farxiga) 10 mg PO DAILY ezetimibe (Zetia) 10 mg PO DAILY fluticasone propionate 110 mcg/actuation (Flovent HFA) 2 puffs inhalation BID 30 days insulin aspart U-100 (Novolog FlexPen U-100 Insulin aspart) 25 - 45 units (0.25 - 0.45 mL) subcut TID 30 days insulin degludec (Tresiba FlexTouch U-200 insulin) 100 units (0.5 mL) subcut DAILY 30 days lancets (FreeStyle Lancets) Three times a day metformin ER 1,000 mg (2 x 500 mg) PO BID 90 days methylcellulose (laxative) (Citrucel) 500 mg PO TID metoprolol succinate ER 100 mg PO DAILY 90 days miscellaneous medical supply 1 ea miscellaneous DAILY 99 days nystatin 1 appl topical DAILY 30 days omeprazole 20 mg PO DAILY peg 3350-electrolytes 236-22.74-6.74 -5.86 gram 240 mL PO Q10M pen needle, diabetic (BD Ultra-Fine Billie Pen Needle) 1 ea subcut QID 30 days sacubitril-valsartan 49-51 mg (Entresto) 0.5 tabs PO BID salmeterol (Serevent Diskus) 1 inh inhalation BID 30 days semaglutide (Ozempic) 1 mg (0.75 mL) subcut QWEEK sildenafil 100 mg PO DAILY PRN 7 days spironolactone 25 mg PO DAILY Vascepa (icosapent ethyl) 2 grams (2 x 1 gram) PO BID NS HPI HPI Type 2 DM/CONFIRMED: Details: Patient is a 48-year-old with a significant past medical history hypertension, hyperlipidemia, type 2 diabetes, CHF and obesity presenting today for a follow- up regarding his diabetes. He was last seen by Dr. Dolan in December. Endo: DM: Last A1c was 8. He is currently on Tresiba 100 units daily, NovoLog 25-45 units t.i.d., Farxiga 10 mg, Ozempic 1 mg weekly, metformin 1000 mg twice a day.. -he is tolerating the Ozempic well and wants to go up on the dosage. He had to stop at last month for a week because he had a cardiac catheterization. CGM: 100% usage, average glucose 223, GMI 8.6%, variability 66. Very high 31%, high 40%, in range 29%. No hypoglycemia. -he states he is very frustrated with the Dexcom because it keeps breaking. He states every time he gets when the mallet says that the sensor is not working. He wants to switch sensors. He states that pops off or give error readings. hypoglycemia-0, states he can tell when he is low. He will get shaky and weak. Correct this with sugar. hyperglycemia-regularly elevated. States that he notices some increased thirst with this. CV: bp today is 106/68. He is on metoprolol 100 mg, Entresto, spironolactone. Cholesterol is controlled with atorvastatin 80 mg and Zetia 10 mg. [facility] Medical History (Updated 09/25/23 @ 07:25 by Deejay Gonzalez PA-C) Annual physical exam Obesity (BMI 30-39.9) Colon cancer screening Obese Cardiomyopathy Gout of right knee History of [place] (myocardial infarction) GERD (gastroesophageal reflux disease) Asthma CHRIS (obstructive sleep apnea) Effusion, right knee Patellofemoral arthritis of right knee Acid reflux Hypertension Dyslipidemia penitentiary (current) 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 Diabetes type 2, uncontrolled Surgical History Hx of rotator cuff surgery History of ear surgery History of surgery on arm Hx of esophagogastroduodenoscopy Hx of colonoscopy Hx of knee surgery Family History Father Diabetes Mother Diabetes Social History Housing: Apartment Alcohol intake: never Patient Tobacco Use Status: Former Tobacco user Tobacco use type: Cigarette e-Cigarette/Vaping Use: Never Used Second Hand Smoke Exposure: No Substance Use Type: Marijuana service: No Current occupational status: disabled Current occupational exposures/hazards: No Cognitive needs: No Hearing needs: Yes (hearing aide) Vision needs: No Physical Exam Vital Signs: Last Vital Signs Pulse 96 02/23/24 13:57 BP 106/68 02/23/24 13:57 BMI result Body Mass Index 35.1 Const Orientation/consciousness: patient oriented x3 Neck Neck: Yes no lymphadenopathy Thyroid: Thyroid normal Carotids: no bruits Resp Auscultation: clear to auscultation bilaterally Cardio Rate: regular rate Rhythm: regular rhythm Heart sounds: S1 normal heart sound present and S2 normal heart sound present Peripheral pulses: dorsalis pedis present Neuro General: patient oriented x3, gait normal and no focal motor deficits Extrem Other: Monofilament sensation intact bilaterally. Vibratory sensation intact bilaterally. Skin intact. General: Yes normal to inspection Results Reviewed Results Reviewed: Laboratory Tests 08/30/23 12/25/23 01/01/24 14:05 06:09 15:01 Sodium 145 Potassium 3.9 Chloride 110 H Carbon Dioxide 21 L Anion Gap 18 BUN 18 H Creatinine 0.87 Estimated GFR > 60 Hgb A1c (Clinic) 10.5 H 8.0 H AST 23 ALT 31 Triglycerides 167 H Cholesterol 126 LDL Cholesterol, Calc 67 HDL Cholesterol 26 L Assessment & Plan Assessment & Plan (1) Diabetes type 2, uncontrolled: Code(s): E11.65 - Type 2 diabetes mellitus with hyperglycemia Category: Medical Qualifiers: Glycemic state: with hyperglycemia Qualified Code(s): E11.65 - Type 2 diabetes mellitus with hyperglycemia Plan: We will switch to the freestyle Lana 3. I will increase Ozempic to 2 mg. Continue insulin regimen. Continue with the Farxiga and metformin. (2) terminal make up operator (current) 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: Code(s): Z79.4 - terminal make up operator (current) 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 Category: Medical Plan: As above (3) Hypertension: Code(s): I10 - Essential (primary) hypertension Category: Medical Qualifiers: Hypertension type: essential hypertension Qualified Code(s): I10 - Essential (primary) hypertension Plan: WNL today. Continue current regimen (4) Dyslipidemia: Code(s): E78.5 - Hyperlipidemia, unspecified Category: Medical Plan: Recently improved. Continue atorvastatin and Zetia. Tolerating well. Orders: Orders Hemoglobin A1c Today E11.65 - Type 2 diabetes mellitus with hyperglycemia, Z79.4 - penitentiary (current) 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 Medications: New semaglutide (Ozempic) 2 mg (0.75 mL) subcut QWEEK 3 mL 5RF blood-glucose sensor (FreeStyle Lana 3 Sensor device) Apply every 14 days As directed to monitor blood glucose 6 ea 3RF E11.9 - Type 2 diabetes mellitus without complications, Z79.4 - penitentiary (current) 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 blood-glucose meter,continuous (FreeStyle Lana 3 [place]) Use daily As directed to monitor blood glucose 1 ea 0RF E11.65 - Type 2 diabetes mellitus with hyperglycemia, Z79.4 - terminal make up operator (current) 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 Discontinued flash glucose scanning reader (FreeStyle Lana 2 [place]) Discontinued Reason: Duplicate As directed 1 ea 0RF E11.65 - Type 2 diabetes mellitus with hyperglycemia semaglutide (Ozempic) Discontinued Reason: Doctor's Order 1 mg (0.75 mL) subcut QWEEK 3 mL 5RF Coding Level of Care Code Est Pt Level 4 (84967) Complex EM visit Add On G2211 Diagnoses Uncontrolled type 2 diabetes mellitus with hyperglycemia E11.65 Glycemic state: with hyperglycemia penitentiary (current) 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 Z79.4 Essential hypertension I10 Hypertension type: essential hypertension Dyslipidemia E78.5
[2024-02-23 13:57] VITALS: BP 106/68; PULSE 96; BMI 35.1
[2024-02-23 14:08] LABS: Glucose, Whole Blood 153 mg/dL (60-115)
== END 2024-02-23 14:26 | disposition home or self-care (01) ==
PROVIDERS: PCP Physician Assistant; Visit Provider Physician Assistant
DX: E11.65 Type 2 diabetes mellitus with hyperglycemia (principal); Z79.4 Long term (current) 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; I10 Essential (primary) hypertension; E78.5 Hyperlipidemia, unspecified
CPT/HCPCS: 99214; G2211

== ENCOUNTER 2024-04-11 07:46 | Outpatient (REF) | payer OTHER, SELFPAY ==
[2024-04-11 08:23] LABS: Estimated Average Glucose 197 mg/dL; Hemoglobin A1c % 8.5 % (<6.0)
[2024-04-11 08:32] LABS: Anion Gap 13 (12-20); Blood Urea Nitrogen 16 mg/dL (9-16); Calcium 10.2 mg/dL (8.4-10.2); Carbon Dioxide 25 mmol/L (22-29); Chloride 108 mmol/L (96-108); Cholesterol 104 mg/dL (<200); Estimated Glomerular Filt Rate > 60; Glucose Random 167 mg/dL (60-115); HDL Cholesterol 25 mg/dL (>40); LDL Cholesterol Calculated 36 mg/dL (<100); Potassium 4.4 mmol/L (3.3-5.1); Sodium 142 mmol/L (135-145); Triglycerides 215 mg/dL (<150)
== END 2024-04-11 07:47 | disposition home or self-care (01) ==
LOC: HO.LAB 07:46
PROVIDERS: Absent Provider Physician Assistant; PCP Physician Assistant; Visit Provider Nurse Practitioner Family
DX: E11.65 Type 2 diabetes mellitus with hyperglycemia (principal); E78.2 Mixed hyperlipidemia; I10 Essential (primary) hypertension; I42.9 Cardiomyopathy, unspecified; N47.1 Phimosis; N48.1 Balanitis; N52.8 Other male erectile dysfunction
CPT/HCPCS: 36415; 80048; 80061; 83036; 99202; 99211

== ENCOUNTER 2024-04-11 08:13 | Outpatient (AMB) | payer OTHER, SELFPAY ==
--- NOTE | 2024-04-11 08:57 | MHC.OFFVIS ---
Intake Visit Reasons: phimosis Intake Note: Onesimo is a 48 year old male who presents to the office today for phimosis. Urology meds:Sildenafil Allergies ibuprofen [From MOTRIN] Allergy (Intermediate, Verified 04/11/24 08:58) HIVES, Rash HPI Comments Details: Onesimo is here for evaluation for circumcision and ED. CoMorbidity- Diabetes. The patient states he has been treated with antifungal cream in the past. He has been prescribed generic Viagra with minimal improvements in erections. Discussed treatment options for erectile dysfunction to include daily Cialis. The patient is interested in circumcision. [facility] Medical History Annual physical exam Obesity (BMI 30-39.9) Colon cancer screening Obese Cardiomyopathy Gout of right knee History of [place] (myocardial infarction) GERD (gastroesophageal reflux disease) Asthma CHRIS (obstructive sleep apnea) Effusion, right knee Patellofemoral arthritis of right knee Acid reflux Hypertension Dyslipidemia intermediate designer (current) 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 Diabetes type 2, uncontrolled Surgical History Hx of rotator cuff surgery History of ear surgery History of surgery on arm Hx of esophagogastroduodenoscopy Hx of colonoscopy Hx of knee surgery Family History Father Diabetes Mother Diabetes Social History Housing: Apartment Alcohol intake: never Patient Tobacco Use Status: Former Tobacco user Tobacco use type: Cigarette e-Cigarette/Vaping Use: Never Used Second Hand Smoke Exposure: No Substance Use Type: Marijuana service: No Current occupational status: disabled Current occupational exposures/hazards: No Cognitive needs: No Hearing needs: Yes (hearing aide) Vision needs: No Review of Systems Const All systems reviewed & are unremarkable except as noted in HPI and below Reports no additional complaints Eyes Reports no additional complaints ENT Reports no additional complaints Card Reports no additional complaints Resp Reports no additional complaints GI Reports no additional complaints Reports as per HPI Musc Reports no additional complaints Skin/Breast Reports system reviewed and no additional complaints, except as documented Neuro Reports no additional complaints Psych Reports no additional complaints Endo Reports no additional complaints Rocky/Lymph Reports no additional complaints Aller/Immun Reports no additional complaints Physical Exam Const General: healthy appearing, no acute distress and well developed Orientation/consciousness: patient oriented x3 HEENT Head: Yes normocephalic and Yes atraumatic Eyes Conjunctivae: conjunctivae normal Neck Neck: Yes normal visual inspection Chest Chest palpation & inspection: normal inspection of the chest Resp Effort & Inspection: normal respiratory effort Cardio Rate: regular rate GI Inspection: Yes normal to inspection Penis: uncircumcised and phimosis Scrotum: scrotum normal Neuro General: patient oriented x3 Extrem General: No pedal edema Psych Appearance: grossly normal Affect: normal affect Assessment & Plan Assessment & Plan (1) Balanitis: Code(s): N48.1 - Balanitis Category: Medical (2) Phimosis: Code(s): N47.1 - Phimosis Category: Medical (3) Erectile dysfunction: Code(s): N52.9 - Male erectile dysfunction, unspecified Category: Medical Qualifiers: Erectile dysfunction type: due to other cause Qualified Code(s): N52.8 - Other male erectile dysfunction (4) Diabetes: Code(s): E11.9 - Type 2 diabetes mellitus without complications Category: Medical Plan Cialis 5 mg daily. Schedule circumcision Patient Instructions: The patient had an opportunity to ask questions regarding treatment plan. The patient expressed understanding and agreement with the above treatment plan. The patient is aware they should contact our office by phone for worsening of their current condition or the appearance of new symptoms. Compliance is encouraged with any medications and followup testing that is ordered. It is a privilege to be allowed the opportunity to participate in the urologic care of your patient. If you have any questions or concerns regarding treatment for the above conditions please do not hesitate to contact me. The office telephone contact is [phone]. This note is constructed in part using voice recognition software. While every effort has been made to ensure accuracy reclamation worker errors may have been included. Yours sincerely, Arslan Howell MD Coding Level of Care Code New Pt Level 4 (78960) Diagnoses Balanitis N48.1 Phimosis N47.1 Other male erectile dysfunction N52.8 Erectile dysfunction type: due to other cause Diabetes E11.9
== END 2024-04-11 09:47 | disposition home or self-care (01) ==
PROVIDERS: PCP Physician Assistant; Visit Provider Urology
DX: N48.1 Balanitis (principal); N47.1 Phimosis; N52.8 Other male erectile dysfunction; E11.9 Type 2 diabetes mellitus without complications
CPT/HCPCS: 99204

== ENCOUNTER 2024-04-11 09:48 | Outpatient (AMB) | payer OTHER, SELFPAY ==
--- NOTE | 2024-04-11 10:11 | A.OFFVIS_ITS ---
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 Accompanied by: Self / Same As Patient Allergies ibuprofen [From MOTRIN] Allergy (Intermediate, Verified 04/11/24 08:58) HIVES, Rash HPI Comprehensive Diabetes Asmnt Most Recent Diabetes Results: Cholesterol 104 mg/dL (<200) 04/11/24 HDL Cholesterol 25 mg/dL (>40) L 04/11/24 Triglycerides 215 mg/dL (<150) H 04/11/24 Creatinine 1.03 mg/dL (0.5-1.4) 04/11/24 Blood Urea Nitrogen 16 mg/dL (9-16) 04/11/24 Sodium 142 mmol/L (135-145) 04/11/24 Potassium 4.4 mmol/L (3.3-5.1) 04/11/24 Chloride 108 mmol/L (96-108) 04/11/24 Carbon Dioxide 25 mmol/L (22-29) 04/11/24 Calcium 10.2 mg/dL (8.4-10.2) 04/11/24 AST 23 U/L (5-37) 12/25/23 ALT 31 U/L (0-40) 12/25/23 Total Protein 6.6 g/dL (6.5-8.0) 12/25/23 Albumin 3.9 g/dL (3.5-5.0) 12/25/23 [facility] Medical History Annual physical exam Obesity (BMI 30-39.9) Colon cancer screening Obese Cardiomyopathy Gout of right knee History of [place] (myocardial infarction) GERD (gastroesophageal reflux disease) Asthma CHRIS (obstructive sleep apnea) Effusion, right knee Patellofemoral arthritis of right knee Acid reflux Hypertension 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 Diabetes type 2, uncontrolled Surgical History Hx of rotator cuff surgery History of ear surgery History of surgery on arm Hx of esophagogastroduodenoscopy Hx of colonoscopy Hx of knee surgery Family History Father Diabetes Mother Diabetes Social History Housing: Apartment Alcohol intake: never Patient Tobacco Use Status: Former Tobacco user Tobacco use type: Cigarette e-Cigarette/Vaping Use: Never Used Second Hand Smoke Exposure: No Substance Use Type: Marijuana service: No Current occupational status: disabled Current occupational exposures/hazards: No Cognitive needs: No Hearing needs: Yes (hearing aide) Vision needs: No Assessment & Plan Assessment & Plan (1) Diabetes type 2, uncontrolled: Code(s): E11.65 - Type 2 diabetes mellitus with hyperglycemia Qualifiers: Glycemic state: with hyperglycemia Qualified Code(s): E11.65 - Type 2 diabetes mellitus with hyperglycemia Plan: Patient at visit for follow-up blood glucose check, and diabetes education Patient did not bring CGM reader to todays visit In the past week patient has been using glucometer to check glucose levels Number in patient's glucometer is significantly above target range Patient reports blood sugars below: Date Breakfast/Fasting Pre-Lunch Pre-Supper Bedtime Notes 04/11 219 04/10 199 403 395 04/09 268 391 04/08 256 322 04/07 368 352 04/06 191 423 04/05 210 Medications (If applicable) * Name of medication? * Dosing/administration instructions? * Mechanism of action? * Potential side effects? * Potential adverse reaction and appropriate treatment? * Review onset, peak, duration Assess for concerns re: insurance coverage, cost, barriers to compliance Insulin/Injectables (If applicable) * Storage/care of insulin?? * Injection sites? * Site rotation? * Onset, peak, duration * Drawing up insulin? * Injecting insulin/other injectables? * Sharps disposal Continuous blood glucose monitoring (if applicable) Hypoglycemia and Hyperglycemia * Signs and symptoms? * Causes?? * Treatment? * Preventing hypoglycemia? * When to seek medical attention Target Goals: * Blood glucose targets and how you feel when your blood glucose is in and out of your target ranges. * Monitoring and knowing your A1C. * What can make blood glucose go up and down and preventing high and low blood glucose. * Review of blood sugar targets in expected goal range and outside of expected goal range. * Problem solving and preventing hyper/hypoglycemia. * Sick day management of diabetes. * Using blood sugar results in decision making process in managing diabetes. ?Patient was receptive to information provided and participated in the discussion. Asked?appropriate questions and demonstrated good understanding of the topics discussed.? ? Patient instructed to take Humalog as instructed below: NovoLog 25 units prior to meals: Plus an additional 6 units for blood glucose over 200 mg/dL + 8 for bg over 250 +10 for bg over 300 + 12 for bg over 350 Reviewed with patient how to treat hypoglycemia with rule of 15s, hypoglycemic handout given Portions of this note were created using voice recognition software, please excuse any words or phrases that may have been misinterpreted. Patient Instructions: NovoLog 25 units prior to meals: Plus an additional 6 units for blood glucose over 200 mg/dL + 8 for bg over 250 +10 for bg over 300 + 12 for bg over 350 Next appt 04/23/24 at 3:30pm Coding Level of Care Code Est Pt Level 1 (15983) Diagnoses Uncontrolled type 2 diabetes mellitus with hyperglycemia E11.65 Glycemic state: with hyperglycemia
== END 2024-04-11 10:20 | disposition home or self-care (01) ==
PROVIDERS: PCP Physician Assistant; Visit Provider Registered Nurse Diabetes Educator
DX: E11.65 Type 2 diabetes mellitus with hyperglycemia (principal)

== ENCOUNTER 2024-05-21 05:53 | Day surgery (SDC) | payer OTHER, SELFPAY ==
--- NOTE | 2023-12-20 11:50 | P.CONAN_ITS ---
HPI - Anesthesia Eval Consult details Narrative: 48yo M for Colonoscopy Follows [facility] Cardiology for cardiomyopathy. Stable at last office visit, 07/2023. Echo done, EF 45-50%. See below Anesthesia Pre-Procedure Meds Is the patient on any of the following meds?: GLP1/DPP4 PMFSH Active Problems Active Problems: All Active Problems Annual physical exam (Acute) Lumbar disc disease (Acute) Balanitis (Acute) Phimosis (Acute) Erectile dysfunction (Acute) Obesity (BMI 30-39.9) (Acute) Tubular adenoma of colon (Acute) CHF (congestive heart failure), NYHA class II (Acute) Encounter for screening colonoscopy (Acute) GERD (gastroesophageal reflux disease) (Acute) Asthma (Acute) CHRIS (obstructive sleep apnea) (Acute) Hypertension (Acute) Dyslipidemia (Acute) nursing home (current) 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 (Acute) Diabetes type 2, uncontrolled (Acute) Past Medical History Medical History (Updated 09/25/23 @ 07:25 by Deejay Gonzalez PA-C) Annual physical exam Obesity (BMI 30-39.9) Colon cancer screening Obese Cardiomyopathy Gout of right knee History of [place] (myocardial infarction) GERD (gastroesophageal reflux disease) Asthma CHRIS (obstructive sleep apnea) Effusion, right knee Patellofemoral arthritis of right knee Acid reflux Hypertension Dyslipidemia nursing home (current) 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 Diabetes type 2, uncontrolled Family History Family History Father Diabetes Mother Diabetes Surgical History Surgical History Hx of rotator cuff surgery History of ear surgery History of surgery on arm Hx of esophagogastroduodenoscopy Hx of colonoscopy Hx of knee surgery Social History Social History (Updated 09/21/23 @ 16:20 by Deejay Gonzalez PA-C) Housing: Apartment Alcohol intake: never Patient Tobacco Use Status: Former Tobacco user Tobacco use type: Cigarette e-Cigarette/Vaping Use: Never Used Second Hand Smoke Exposure: No Substance Use Type: Marijuana service: No Current occupational status: disabled Current occupational exposures/hazards: No Cognitive needs: No Hearing needs: Yes (hearing aide) Vision needs: No Meds Allergies Allergy/AdvReac Type Severity Reaction Status Date / Time ibuprofen [From MOTRIN] Allergy Intermediate HIVES, Rash Verified 09/21/23 16:14 Home Medications ?Medication ?Instructions ?Recorded ?Confirmed ?Last Taken ?Type dapagliflozin propanediol 10 mg 10 mg PO DAILY 02/16/21 09/21/23 Unknown History tablet (Farxiga) sacubitril 49 mg-valsartan 51 mg 0.5 tab PO BID 09/17/21 09/21/23 Unknown History tablet (Entresto) albuterol sulfate 90 mcg/actuation 2 puff inhalation Q4-6H PRN 11/24/21 09/21/23 Unknown History aerosol inhaler spironolactone 25 mg tablet 25 mg PO DAILY 11/24/21 09/21/23 Unknown History Exam Narrative Narrative: ECHO 07/2023 1. Difficult study d/t body habitus 2. LV size is nml 3. LV wall thickness is nml 4. Mild global hypokinesis of LV contractility. 5. Overall LV sys function is mildly impaired with EF 45-50% 6. Grade 1 DD with impaired relaxation filling pattern and nml filling pressures 7. LA size is nml 8. RV sysltolic function is nml 9. Accurate pulmo pressures cannot be determined d/t absence of TR jet 10. No real change c/w 2021 Assessment and Plan Assessment Anesthesia Assessment: Chart Reviewed
--- NOTE | 2024-05-21 10:02 | P.HPSUR_ITS ---
Pre-Procedural Eval Section A - 24 Hr Update-Section A only Date of Service: 05/21/24 Section B - Complete if H&P > 30 days Chief Complaint: History of polyps Details of Present Illness: Had poor prep in 2019. Cecum: tubular adenoma. 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 Obesity (BMI 30-39.9) Obesity (BMI 30-39.9) CHRIS (obstructive sleep apnea) Patellofemoral arthritis of right knee Surgical History History of ear surgery History of surgery on arm Hx of colonoscopy Hx of esophagogastroduodenoscopy Hx of knee surgery Hx of rotator cuff surgery Present Medications: see Short Stay Collaborative assessment Allergies: Allergies Allergy/AdvReac Type Severity Reaction Status Date / Time ibuprofen [From MOTRIN] Allergy Intermediate HIVES, Rash Verified 04/11/24 08:58 Review of Systems Review of Systems Comment: Ten point ROS negative Exam Exam Comment: Gen appear: No acute distress HEENT: no icterus Chest: No overt resp distress Abd: soft, nontender, nondistended Psych: Stable affect, answering questions appropriately Neuro: A/Ox3 noted to move all extremities spontaneously Ext: no peripheral edema Plan Diagnosis/Plan: Unchanged I have reviewed the history and physical and performed a pertinent physical examination on my patient. No changes have occurred unless specified. Time Spent With Patient Time: Total time managing care of this patient today ____ minutes.
[2024-05-21 10:09] VITALS: BMI 35.4
[2024-05-21 10:15] VITALS: BP 113/67; PULSE 81; RESP 18; TEMP 36.7; O2SAT 98
[2024-05-21 10:20] LABS: Glucose, Whole Blood 127 mg/dL (60-115)
--- NOTE | 2024-05-21 10:30 | HO.ANESPROP2 ---
Documented by User: Shanon Gee NP 05/20/24 09:38 HPI - Anesthesia Eval Consult details Narrative: 48yo M for Colonoscopy Follows [facility] for Nonischemic CMP, Nonobstructive CAD Anesthesia Pre-Procedure Meds Is the patient on any of the following meds?: GLP1/DPP4 and SGLT2 Inhib PMFSH Active Problems Active Problems: All Active Problems Diabetes (Acute) Annual physical exam (Acute) Lumbar disc disease (Acute) Balanitis (Acute) Phimosis (Acute) Erectile dysfunction (Acute) Obesity (BMI 30-39.9) (Acute) Tubular adenoma of colon (Acute) CHF (congestive heart failure), NYHA class II (Acute) Encounter for screening colonoscopy (Acute) GERD (gastroesophageal reflux disease) (Acute) Asthma (Acute) CHRSI (obstructive sleep apnea) (Acute) Hypertension (Acute) Dyslipidemia (Acute) 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 (Acute) Diabetes type 2, uncontrolled (Acute) Past Medical History Medical History Annual physical exam Obesity (BMI 30-39.9) Colon cancer screening Obese Cardiomyopathy Gout of right knee History of [place] (myocardial infarction) GERD (gastroesophageal reflux disease) Asthma CHRIS (obstructive sleep apnea) Effusion, right knee Patellofemoral arthritis of right knee Acid reflux Hypertension Dyslipidemia detention (current) 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 Diabetes type 2, uncontrolled Family History Family History Father Diabetes Mother Diabetes Surgical History Surgical History Hx of rotator cuff surgery History of ear surgery History of surgery on arm Hx of esophagogastroduodenoscopy Hx of colonoscopy Hx of knee surgery Social History Social History Housing: Apartment Alcohol intake: never Patient Tobacco Use Status: Former Tobacco user Tobacco use type: Cigarette e-Cigarette/Vaping Use: Never Used Second Hand Smoke Exposure: No Substance Use Type: Marijuana Advance Directives: No Advance Directives Information Provided: Yes service: No Current occupational status: disabled Current occupational exposures/hazards: No Cognitive needs: No Hearing needs: Yes (hearing aide) Vision needs: No Meds Allergies Allergy/AdvReac Type Severity Reaction Status Date / Time ibuprofen [From MOTRIN] Allergy Intermediate HIVES, Rash Verified 04/11/24 08:58 Home Medications ?Medication ?Instructions ?Recorded ?Confirmed ?Last Taken ?Type dapagliflozin propanediol 10 mg 10 mg PO DAILY 02/16/21 02/23/24 Unknown History tablet (Farxiga) albuterol sulfate 90 mcg/actuation 2 puff inhalation Q4-6H PRN 11/24/21 02/23/24 Unknown History aerosol inhaler spironolactone 25 mg tablet 25 mg PO DAILY 11/24/21 02/23/24 Unknown History Exam Pertinent Lab Results Pertinent Lab Results: Laboratory Tests 12/25/23 04/11/24 06:09 08:04 WBC 6.7 Hgb 15.4 Hct 47.7 Plt Count 192 Sodium 142 Potassium 4.4 Chloride 108 Carbon Dioxide 25 BUN 16 Creatinine 1.03 Narrative Narrative: Cardiac cath 01/2024: minimal lumen irreg in Left main, 50% lesion mid LAD, mild diffuse LCx disease with a 55% lesion in OM1. 55% lesions in proximal RCA ECHO 07/2023 LV nml size, LV wall thickness nml, mild global hypokinesis of LV contractility, LV sys function mildly impaired with EF 45-50%, Grade 1 DD withimpaired relax filling pattern and nml filling pressures, LA size is nml, RV sys function nml, Accurate pulmo pressures cannot be determined d/t absence of TR jet. No change from 2021 Assessment and Plan Assessment Anesthesia Assessment: Chart Reviewed Documented by User: Pilar Crouch DO 05/21/24 10:31 HPI - Anesthesia Eval Anesthesia Pre-Procedure Meds Is the patient on any of the following meds?: GLP1/DPP4 and SGLT2 Inhib PMFSH Past Medical History Medical History Annual physical exam Obesity (BMI 30-39.9) Colon cancer screening Obese Cardiomyopathy Gout of right knee History of [place] (myocardial infarction) GERD (gastroesophageal reflux disease) Asthma CHRIS (obstructive sleep apnea) Effusion, right knee Patellofemoral arthritis of right knee Acid reflux Hypertension 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 Diabetes type 2, uncontrolled Family History Family History Father Diabetes Mother Diabetes Family history of problems with anesthesia: No Surgical History Surgical History Hx of rotator cuff surgery History of ear surgery History of surgery on arm Hx of esophagogastroduodenoscopy Hx of colonoscopy Hx of knee surgery History of Problems with Anesthesia: No Social History Social History Housing: Apartment Alcohol intake: never Patient Tobacco Use Status: Former Tobacco user Tobacco use type: Cigarette e-Cigarette/Vaping Use: Never Used Second Hand Smoke Exposure: No Substance Use Type: Marijuana Advance Directives: No Advance Directives Information Provided: Yes service: No Current occupational status: disabled Current occupational exposures/hazards: No Cognitive needs: No Hearing needs: Yes (hearing aide) Vision needs: No Meds Allergies Allergy/AdvReac Type Severity Reaction Status Date / Time ibuprofen [From MOTRIN] Allergy Intermediate HIVES, Rash Verified 04/11/24 08:58 Home Medications ?Medication ?Instructions ?Recorded ?Confirmed ?Last Taken ?Type dapagliflozin propanediol 10 mg 10 mg PO DAILY 02/16/21 02/23/24 Unknown History tablet (Farxiga) albuterol sulfate 90 mcg/actuation 2 puff inhalation Q4-6H PRN 11/24/21 02/23/24 Unknown History aerosol inhaler spironolactone 25 mg tablet 25 mg PO DAILY 11/24/21 02/23/24 Unknown History Exam Exam Date and Time: 05/21/24 1030 Height,Weight and Vital Signs: Height 5 ft 10 in Weight 112.037 kg Airway Mallampati Class: II (small mouth opening) TM Dist: >3cm Neck ROM: Full Loose/Missing/Broken Teeth: No (patient denies any loose or broken teeth) Heart: S1S2 Lungs: CTAB Assessment and Plan Assessment Anesthesia Assessment: Anesthesia Plan Discussed and Chart Reviewed Final Anesthetic Review Family History of Problems with Anesthesia: No History of Problems with Anesthesia: No NPO: Yes ASA Class: III Final Preanesthetic Review: No Changes in Pt Med Stat, Meds/Allgs Chart Reviewed, Consent Obtained/Reviewed and Anes Risks/Benef Reviewed Patient Risk: Intermediate Procedure Risk: Low Anesthetic Plan Anesthetic Plan: MAC: and Agree w/ Assess. and Plan Disposition: Standard PACU
--- NOTE | 2024-05-21 10:52 | PC.NURSE ---
Dr. Wood and Dr. Crouch aware that patient stopped diabetic meds appropriately and as ordered and that patient ate burger, fries and soda at 1:00 pm yesterday and then began drinking prep with only water and npo after midnight. Doctors discussed and ok to proceed. patient reports clear/yellow liquid result after prep as well.
[2024-05-21 11:12] VITALS: BP 93/50; PULSE 79; RESP 16; TEMP 36.1; O2SAT 94
--- NOTE | 2024-05-21 11:12 | P.OPN-COLO_ITS ---
Colonoscopy Operative Note Operative Note Date of Service: 05/21/24 Narrative: Procedure: Colonoscopy Indication: Personal history of polyps Endoscopist: Kim Wood MD Anesthesia Provider: Camelia Oneill CRNA Anesthesia type: MAC Instrument: Olympus [id number]-[id number] Consent: Indication, risks vs benefits, and alternatives were discussed with the patient who gave written informed consent to proceed. EKG, pulse, pulse oximetry and blood pressure were monitored throughout the procedure. Please see anesthesia flowsheet. Procedure: The patient was brought to the procedure room and placed in the left lateral decubitus position. IV medications were administered by the anesthesia provider in attendance. A digital rectal exam was performed which was normal. A distal attachment cap was affixed to the tip of the colonoscope which was then inserted through the anus and advanced through the colon to the cecum at 80 cm,and terminal ileum. Appendiceal orifice and ileocecal valve were identified. Mucosa was carefully examined under high definition white light as the instrument was slowly withdrawn in a retrograde panoramic fashion. Retroflexion was performed in rectum. The procedure was not difficult. There were no immediate obvious complications. The quality of the prep was BBPS: 2+1+2 = inadequate Withdrawal time 8 minutes. Limitations: Poor prep. Findings: Mucosa: Copious liquid opaque stool with solid debris was noted throughout the colon. This was extensively flushed and suctioned however adequate visualisation could not be achieved zayra in transverse colon. Protruding lesions: * Medium internal hemorrhoids without stigmata of recent bleeding. Impression: 1. Poor prep 2. Internal hemorrhoids Recommendations: - Repeat colonoscopy to be booked within a year. - Pt was counseled in the pacu re following instructions for a good prep (didn't follow clear liquid diet the day before, had a hamburger for lunch)
[2024-05-21 11:25] VITALS: BP 107/69; PULSE 75; RESP 16; TEMP 36.2; O2SAT 94
== END 2024-05-21 12:12 | disposition home or self-care (01) ==
PROVIDERS: PCP Physician Assistant; Visit Provider Internal Medicine
PROC: 0DJD8ZZ Inspection of Lower Intestinal Tract, Via Natural or Artificial Opening Endoscopic (ICD-10-PCS; CPT 45378; principal; 2024-05-21 12:20)
DX: Z12.11 Encounter for screening for malignant neoplasm of colon (principal); K64.8 Other hemorrhoids; Z86.0101 Personal history of adenomatous and serrated colon polyps; E11.9 Type 2 diabetes mellitus without complications; I10 Essential (primary) hypertension; E78.5 Hyperlipidemia, unspecified; K21.9 Gastro-esophageal reflux disease without esophagitis; J45.909 Unspecified asthma, uncomplicated; G47.33 Obstructive sleep apnea (adult) (pediatric); I25.2 Old myocardial infarction; Z79.82 Long term (current) use of aspirin; Z79.02 Long term (current) use of antithrombotics/antiplatelets; Z79.899 Other long term (current) drug therapy; Z79.4 Long term (current) 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; Z79.84 Long term (current) use of oral hypoglycemic drugs; Z87.891 Personal history of nicotine dependence
CPT/HCPCS: G0105; 82947; J2003; J2704

== ENCOUNTER → 2024-05-21 05:53 | Outpatient (BNV) | payer OTHER, SELFPAY | PROVIDERS: PCP Physician Assistant; Visit Provider Internal Medicine | DX: Z12.11 Encounter for screening for malignant neoplasm of colon (principal); Z86.0100 Personal history of colon polyps, unspecified; Z91.199 Patient's noncompliance with other medical treatment and regimen due to unspecified reason | CPT/HCPCS: G0105 ==

== ENCOUNTER 2024-06-28 15:05 | Outpatient (AMB) | payer OTHER, SELFPAY ==
--- NOTE | 2024-06-28 15:08 | A.OFFVIS_ITS ---
Vital Signs 06/28/24 15:10 Height 5 ft 10 in Weight 242 lb 8.136 oz BMI 34.8 BP 108/78 Blood Pressure Location Rt brachial Position Sitting Pulse 98 Pulse Source Pulse Oximeter Intake Visit Reasons: DM/Confirmed Intake Note: Patient presents today for [facility] follow up visit. Last Diabetic Eye exam: 07/2023 Last Podiatry Visit: Does not see a Fudger Most Recent HgA1c: 9.1%, 06/28/2024 Random Glucose: 173 mg/dL, Today Manager Supply Chain Required: No Accompanied by: Self / Same As Patient Allergies ibuprofen [From MOTRIN] Allergy (Intermediate, Verified 05/21/24 10:54) HIVES, Rash Medication List - Last Reconciled 06/28/24 by Dayana Kim PA-C albuterol sulfate 90 mcg/actuation 2 puffs inhalation Q4-6H PRN aspirin (Adult Aspirin Regimen) 81 mg PO DAILY 90 days atorvastatin 80 mg PO BEDTIME 90 days bisacodyl (Dulcolax (bisacodyl)) 20 mg (4 x 5 mg) PO ONCE 1 day blood sugar diagnostic (FreeStyle Lite Strips) As directed four times a day blood-glucose meter (FreeStyle Lite Meter kit) As directed 3x/day blood-glucose meter,continuous (FreeStyle Lana 3 [place]) Use daily As directed to monitor blood glucose blood-glucose sensor (FreeStyle Lana 3 Sensor device) Apply every 14 days As directed to monitor blood glucose dapagliflozin propanediol (Farxiga) 10 mg PO DAILY ezetimibe (Zetia) 10 mg PO DAILY fluticasone propionate 110 mcg/actuation (Flovent HFA) 2 puffs inhalation BID 30 days insulin aspart U-100 (Novolog FlexPen U-100 Insulin aspart) 25 - 45 units (0.25 - 0.45 mL) subcut TID 30 days insulin degludec (Tresiba FlexTouch U-200 insulin) 100 units (0.5 mL) subcut DAILY 30 days lancets (FreeStyle Lancets) Three times a day metformin ER 1,000 mg (2 x 500 mg) PO BID 90 days methylcellulose (laxative) (Citrucel) 500 mg PO TID metoprolol succinate ER 100 mg PO DAILY 90 days miscellaneous medical supply 1 ea miscellaneous DAILY 99 days nystatin 1 appl topical DAILY 30 days omeprazole 20 mg PO DAILY peg 3350-electrolytes 236-22.74-6.74 -5.86 gram 240 mL PO Q10M pen needle, diabetic (BD Ultra-Fine Billie Pen Needle) 1 ea subcut QID 30 days sacubitril-valsartan 49-51 mg (Entresto) 0.5 tabs PO BID salmeterol (Serevent Diskus) 1 inh inhalation BID 30 days semaglutide (Ozempic) 2 mg (0.75 mL) subcut QWEEK sildenafil 100 mg PO DAILY PRN 7 days spironolactone 25 mg PO DAILY tadalafil 5 mg PO DAILY 30 days Vascepa (icosapent ethyl) 2 grams (2 x 1 gram) PO BID NS HPI HPI DM/Confirmed: Details: Patient is a 48-year-old with a significant past medical history hypertension, hyperlipidemia, type 2 diabetes, CHF and obesity presenting today for a follow- up regarding his diabetes. Endo: DM: Last A1c was 8. Today it is 9.1. He is currently on Tresiba 100 units daily, NovoLog sliding scale, Farxiga 10 mg, Ozempic 2 mg weekly, metformin 1000 mg twice a day.. CGM: ran out of sensors 4 weeks ago. He states his blood sugars have been normal. -He is checking blood sugars 3-4 x a day. hypoglycemia-0, states he can tell when he is low. He will get shaky and weak. Correct this with sugar. He states he has had nothing less than 80. hyperglycemia-he states that he has noted noted anything higher than 180. -he has lost 20 lbs with ozempic CV: bp today is 108/78. He is on metoprolol 100 mg, Entresto, spironolactone. Cholesterol is controlled with atorvastatin 80 mg and Zetia 10 mg. 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 Diabetes type 2, uncontrolled Surgical History Hx of rotator cuff surgery History of ear surgery History of surgery on arm Hx of esophagogastroduodenoscopy Hx of colonoscopy Hx of knee surgery Family History Father Diabetes Mother Diabetes Social History Housing: Apartment Are you a primary healthcare applications analyst to a significant other at home: No Do you presently have visiting nurse or other home services: No Alcohol intake: never Patient Tobacco Use Status: Former Tobacco user Tobacco use type: Cigarette e-Cigarette/Vaping Use: Never Used Second Hand Smoke Exposure: No Substance Use Type: Marijuana service: No Current occupational status: disabled Current occupational exposures/hazards: No Cognitive needs: No Hearing needs: Yes (hearing aide) Vision needs: No Physical Exam Vital Signs: Last Vital Signs Pulse 98 06/28/24 15:10 BP 108/78 06/28/24 15:10 BMI result Body Mass Index 34.8 Const Orientation/consciousness: patient oriented x3 HEENT Ears: hearing grossly normal bilaterally Neck Thyroid: Thyroid normal Lymphatic: no lymphadenopathy noted Resp Auscultation: clear to auscultation bilaterally Cardio Rate: regular rate Rhythm: regular rhythm Heart sounds: S1 normal heart sound present and S2 normal heart sound present Skin General skin exam: no rashes or lesions noted Neuro General: patient oriented x3, gait normal and no focal motor deficits Results AMB Hemoglobin A1c AMB Hemoglobin A1c 9.1 % Last Edit by ELIDIA Cohen on 06/28/24 15:30 Results Reviewed Results Reviewed: Laboratory Last Values Glucose (Clinic) 173 mg/dL (60-115) H 06/28/24 15:14 Laboratory Tests 04/03/23 04/11/24 05/21/24 06:08 08:04 10:16 Creatinine 1.03 Estimated GFR > 60 POC Glucose 127 H Random Glucose 167 H Hemoglobin A1c % 8.5 H Triglycerides 215 H Cholesterol 104 LDL Cholesterol, Calc 36 HDL Cholesterol 25 L Urine Creatinine 37.12 Urine Microalbumin < 5.0 Microalb/Creat Ratio TNP Assessment & Plan Assessment & Plan (1) Diabetes type 2, uncontrolled: Code(s): E11.65 - Type 2 diabetes mellitus with hyperglycemia Category: Medical Qualifiers: Glycemic state: with hyperglycemia Qualified Code(s): E11.65 - Type 2 diabetes mellitus with hyperglycemia Plan: sensor provided in the office today continue current treatment plan He believes that his A1c is elevated because he has had a few procedures in the last couple of months and has had to stop Ozempic on and off for a few weeks. He states over the last few weeks his blood sugars much better. Labs prior to our next appointment. Patient understands agrees with the plan. (2) Dyslipidemia: Code(s): E78.5 - Hyperlipidemia, unspecified Category: Medical Plan: continue current treatment plan (3) Hypertension: Code(s): I10 - Essential (primary) hypertension Category: Medical Qualifiers: Hypertension type: essential hypertension Qualified Code(s): I10 - Essential (primary) hypertension Plan: wnl continue current plan Orders: Orders Microalbumin, Random (w Creat) Today E11.65 - Type 2 diabetes mellitus with hyperglycemia, E78.5 - Hyperlipidemia, unspecified, I10 - Essential (primary) hypertension Hemoglobin A1c Today E11.65 - Type 2 diabetes mellitus with hyperglycemia, E78.5 - Hyperlipidemia, unspecified, I10 - Essential (primary) hypertension Comprehensive [place]. Panel Fast Today E11.65 - Type 2 diabetes mellitus with hyperglycemia, E78.5 - Hyperlipidemia, unspecified, I10 - Essential (primary) hypertension B Type Natriuretic Peptide Today E11.65 - Type 2 diabetes mellitus with hyperglycemia, E78.5 - Hyperlipidemia, unspecified, I10 - Essential (primary) hypertension Medications: New blood-glucose sensor (FreeStyle Lana 3 Plus Sensor device) Use daily As directed to monitor glucose 2 ea 5RF E08.29 - Diabetes mellitus due to underlying condition with other diabetic kidney complication, R80.9 - Proteinuria, unspecified, Z79.4 - long-term (current) 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 Coding Level of Care Code Est Pt Level 4 (54021) Complex EM visit Add On G2211 Diagnoses Uncontrolled type 2 diabetes mellitus with hyperglycemia E11.65 Glycemic state: with hyperglycemia Dyslipidemia E78.5 Essential hypertension I10 Hypertension type: essential hypertension
--- NOTE | 2024-06-28 15:08 | MHC.OFFVIS ---
Intake Visit Reasons: DM/Confirmed Allergies ibuprofen [From MOTRIN] Allergy (Intermediate, Verified 05/21/24 10:54) HIVES, Rash HPI HPI DM/Confirmed: Details: Patient is a 48-year-old with a significant past medical history hypertension, hyperlipidemia, type 2 diabetes, CHF and obesity presenting today for a follow-up regarding his diabetes. Endo: DM: Last A1c was 8. He is currently on Tresiba 100 units daily, NovoLog 25-45 units t.i.d., Farxiga 10 mg, Ozempic 2 mg weekly, metformin 1000 mg twice a day.. CGM: 100% usage, average glucose 223, GMI 8.6%, variability 66. Very high 31%, high 40%, in range 29%. No hypoglycemia. hypoglycemia-0, states he can tell when he is low. He will get shaky and weak. Correct this with sugar. hyperglycemia-regularly elevated. States that he notices some increased thirst with this. CV: bp today is 106/68. He is on metoprolol 100 mg, Entresto, spironolactone. Cholesterol is controlled with atorvastatin 80 mg and Zetia 10 mg. 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 Diabetes type 2, uncontrolled Surgical History Hx of rotator cuff surgery History of ear surgery History of surgery on arm Hx of esophagogastroduodenoscopy Hx of colonoscopy Hx of knee surgery Family History Father Diabetes Mother Diabetes Social History Housing: Apartment Are you a primary rn palliative care to a significant other at home: No Do you presently have visiting nurse or other home services: No Alcohol intake: never Patient Tobacco Use Status: Former Tobacco user Tobacco use type: Cigarette e-Cigarette/Vaping Use: Never Used Second Hand Smoke Exposure: No Substance Use Type: Marijuana service: No Current occupational status: disabled Current occupational exposures/hazards: No Cognitive needs: No Hearing needs: Yes (hearing aide) Vision needs: No Coding
[2024-06-28 15:10] VITALS: BP 108/78; PULSE 98; BMI 34.8
[2024-06-28 15:18] LABS: Glucose, Whole Blood 173 mg/dL (60-115)
== END 2024-06-28 15:31 | disposition home or self-care (01) ==
PROVIDERS: PCP Physician Assistant; Visit Provider Physician Assistant
DX: E11.65 Type 2 diabetes mellitus with hyperglycemia (principal); E78.5 Hyperlipidemia, unspecified; I10 Essential (primary) hypertension

== ENCOUNTER → 2024-06-28 15:05 | Outpatient (BNVA) | payer OTHER, SELFPAY | PROVIDERS: PCP Physician Assistant; Visit Provider Physician Assistant | DX: E11.65 Type 2 diabetes mellitus with hyperglycemia (principal); E78.5 Hyperlipidemia, unspecified; I10 Essential (primary) hypertension | CPT/HCPCS: 82947; 83036; 99212 ==

== ENCOUNTER 2024-07-02 12:09 | Outpatient (AMB) | payer OTHER, SELFPAY ==
--- NOTE | 2024-07-02 13:03 | MHC.PC.OV ---
Vital Signs 07/02/24 13:04 Height 5 ft 10 in Weight 241 lb BMI 34.6 BP 120/80 Blood Pressure Location Lt brachial Position Sitting Pulse 90 Pulse Source Pulse Oximeter Pulse Oximetry (%) 99 Oxygen Delivery Method Room Air Intake Visit Reasons: circumcision w/Dr. 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 Accompanied by: Self / Same As Patient Allergies ibuprofen [From MOTRIN] Allergy (Intermediate, Verified 07/02/24 13:11) HIVES, Rash Medication List - Last Reconciled 07/02/24 by Deejay Gonzalez PA-C albuterol sulfate 90 mcg/actuation 2 puffs inhalation Q4-6H PRN aspirin (Adult Aspirin Regimen) 81 mg PO DAILY 90 days atorvastatin 80 mg PO BEDTIME 90 days bisacodyl (Dulcolax (bisacodyl)) 20 mg (4 x 5 mg) PO ONCE 1 day blood sugar diagnostic (FreeStyle Lite Strips) As directed four times a day blood-glucose meter (FreeStyle Lite Meter kit) As directed 3x/day blood-glucose meter,continuous (FreeStyle Lana 3 [place]) Use daily As directed to monitor blood glucose blood-glucose sensor (FreeStyle Lana 3 Plus Sensor device) Use daily As directed to monitor glucose dapagliflozin propanediol (Farxiga) 10 mg PO DAILY ezetimibe (Zetia) 10 mg PO DAILY fluticasone propionate 110 mcg/actuation (Flovent HFA) 2 puffs inhalation BID 30 days insulin aspart U-100 (Novolog FlexPen U-100 Insulin aspart) 25 - 45 units (0.25 - 0.45 mL) subcut TID 30 days insulin degludec (Tresiba FlexTouch U-200 insulin) 100 units (0.5 mL) subcut DAILY 30 days lancets (FreeStyle Lancets) Three times a day metformin ER 1,000 mg (2 x 500 mg) PO BID 90 days methylcellulose (laxative) (Citrucel) 500 mg PO TID metoprolol succinate ER 100 mg PO DAILY 90 days miscellaneous medical supply 1 ea miscellaneous DAILY 99 days nystatin 1 appl topical DAILY 30 days omeprazole 20 mg PO DAILY peg 3350-electrolytes 236-22.74-6.74 -5.86 gram 240 mL PO Q10M pen needle, diabetic (BD Ultra-Fine Billie Pen Needle) 1 ea subcut QID 30 days sacubitril-valsartan 49-51 mg (Entresto) 0.5 tabs PO BID salmeterol (Serevent Diskus) 1 inh inhalation BID 30 days semaglutide (Ozempic) 2 mg (0.75 mL) subcut QWEEK sildenafil 100 mg PO DAILY PRN 7 days spironolactone 25 mg PO DAILY tadalafil 5 mg PO DAILY 30 days Vascepa (icosapent ethyl) 2 grams (2 x 1 gram) PO BID NS Tobacco use date assessed: 09/21/23 Dental Screening Dental Screen Date: 09/21/23 HPI circumcision w/Dr. Howell TBD and DMII F/U HPI Details Patient is a 48-year-old male here today for a follow-up visit and preop. He is due for circumcision with [facility] due to phimosis. Patient has a past medical history significant for diabetes, GERD, obesity,? systolic heart failure, asthma, mild obstructive sleep apnea, hyperlipidemia. .. Type 2 diabetes:? Has reestablish care with [facility]. Most recent A1c at 9.1 he reports being off of his diabetic medication for week recently due to colonoscopy procedure.. Also has a new continues glucose monitor which has been helpful on glycemic control. Usual dose of metformin is a 1000 b.i.d.. // Asthma:? Patient is followed by access consultant and does have a cough variant asthma.? Continues on maintenance inhaler and daily basis. .. CHF:? Patient is followed by electric furnace operator (dr. Lozano) [facility]. He reports he recently was noted to have coronary artery disease causing his cardiomyopathy thus though Congestive heart failure. Was started on Farxiga 10 mg and high potency statin therapy. From a cardiovascular point of view has been stable.? He denies any chest discomforts, shortness of breath or rapid weight gain.? He does get by annual echocardiograms. 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 Diabetes type 2, uncontrolled Surgical History Hx of rotator cuff surgery History of ear surgery History of surgery on arm Hx of esophagogastroduodenoscopy Hx of colonoscopy Hx of knee surgery Family History Father Diabetes Mother Diabetes Social History Housing: Apartment Are you a primary personal care aide to a significant other at home: No Do you presently have visiting nurse or other home services: No Alcohol intake: never Patient Tobacco Use Status: Former Tobacco user Tobacco use type: Cigarette e-Cigarette/Vaping Use: Never Used Second Hand Smoke Exposure: No Substance Use Type: Marijuana service: No Current occupational status: disabled Current occupational exposures/hazards: No Cognitive needs: No Hearing needs: Yes (hearing aide) Vision needs: No Questionnaire Thrive Questionnaire Date Thrive assessed: 09/21/23 BERNADETTE-7 AMB Questionnaire BERNADETTE-7 Date BERNADETTE - 7 assessed: 09/21/23 Source: Developed by Drs. Adarsh Beatty, Adina Faria, Tano Martinez and colleagues, with an educational oscar from [employer]. Review of Systems Const Denies headache(s) Eyes Denies loss of vision ENT Denies vertigo, Denies dizziness, Denies headache(s) and Denies sore throat Card Denies chest pain, Denies leg edema and Denies lightheadedness Resp Denies cough, Denies hemoptysis and Denies wheezing GI Denies abdominal pain, Denies melena, Denies constipation, Denies diarrhea and Denies vomiting Denies dysuria, Denies urinary frequency and Denies urinary urgency Musc Denies arthralgias, Denies joint swelling, Denies numbness and Denies tingling Neuro Denies Abnormal speech present, Denies behavioral changes, Denies vertigo, Denies dizziness, Denies headache(s), Denies loss of vision, Denies memory loss, Denies numbness and Denies tingling Psych Denies anxiety, Denies behavioral changes, Denies depression, Denies memory loss and Denies panic attacks Rocky/Lymph Denies easy bleeding and Denies easy bruising Aller/Immun Denies wheezing Physical exam (Primary Care) Vital Signs: Last Vital Signs Pulse 90 07/02/24 13:04 BP 120/80 07/02/24 13:04 Pulse Ox 99 07/02/24 13:04 Oxygen Delivery Method Room Air 07/02/24 13:04 BMI result Body Mass Index 34.6 Tobacco/Smoking Status: Tobacco use Status Tobacco use date assessed 09/21/23 07/02/24 13:09 Patient Tobacco Use Status Former Tobacco user 07/02/24 13:09 Tobacco use type Cigarette 07/02/24 13:09 e-Cigarette/Vaping Use Never Used 07/02/24 13:09 Thrive Assessment: Date of Thrive Assessment Date Thrive assessed 09/21/23 07/02/24 13:09 Const General: healthy appearing, no acute distress, alert and awake Nutritional Appearance: well nourished Orientation/consciousness: oriented to person, oriented to place and oriented to time HENMT Ears: TM's normal bilaterally General nose exam: Normal nasal mucous membranes and turbinates present Eyes Conjunctivae: conjunctivae normal Sclerae: sclerae normal Pupils: Equal, round and reactive pupils present Neck Neck: Yes no lymphadenopathy and Yes no JVD Thyroid: Thyroid normal Carotids: no bruits Resp Effort & Inspection: normal respiratory effort and not tachypneic Auscultation: no crackles, no rales, no rhonchi and no wheezes Cardio Rate: regular rate Rhythm: regular rhythm Heart sounds: no murmurs and normal S1 and S2 GI Palpation (GI): Soft to palpation, nontender, no hepatomegaly and no splenomegaly Auscultation: normal bowel sounds Skin General skin exam: no rashes or lesions noted and dry skin Neuro General: oriented to person, oriented to place and oriented to time Cranial nerves: Yes Equal, round and reactive pupils present Speech: No Abnormal speech present Gait exam (Neuro): Normal gait present Motor exam (neuro): no tremor noted Extrem Right upper extremity: full ROM Left upper extremity: full ROM Right lower extremity: full ROM; no edema Left lower extremity: full ROM; no edema Psych Mental Status: mental status grossly normal Speech and movement: Normal speech and movement present Affect: normal affect Attitude: cooperative Thought process: Normal thought process present Office Procedures Flu Questionnaire Does the patient have a severe egg allergy?: No Does the patient have severe life threatening allergies?: No Does the patient have a fever or illness today?: No Has the patient ever had Guillain-Pound Syndrome?: No Has the patient ever had any past reaction to a flu shot?: No Immunizations Fluarix Triv [id number] (PF) 45 mcg (15 mcg x 3)/0.5 mL IM syringe Performing Provider: Deejay Gonzalez PA-C Performing Location: [facility] [place] [facility] Administered by: LINH Stone on 07/02/24 13:41 Dose Route Admin Location Dispensed Lot Number Expiration Date ND Strip Catcher 0.5 mL IM Left Deltoid 0.5 mL [id number] 01/13/25 [id number] [employer] VIS Given Date VIS Provided VIS Publication Date 07/02/24 Single Vaccine 21 Eligibility Eligibility Date Funding Source Not [facility] Eligible 07/02/24 Private Coding Level of Care Code Est Pt Level 4 (08183) Diagnoses Type 2 diabetes mellitus with other circulatory complication, with long-term current 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 E11.59; Z79.4 Diabetes mellitus complication detail: with other circulatory complications Diabetes mellitus complication status: with circulatory complication Diabetes mellitus skilled nursing insulin use: with skilled nursing use Diabetes mellitus type: type 2 Chronic systolic congestive heart failure, NYHA class 2 I50.22 Congestive heart failure chronicity: chronic Congestive heart failure type: systolic Pre-op evaluation Z01.818 Assessment & Plan Assessment & Plan (1) Diabetes: Code(s): E11.9 - Type 2 diabetes mellitus without complications Category: Medical Qualifiers: Diabetes mellitus complication detail: with other circulatory complications Diabetes mellitus complication status: with circulatory complication 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 He reports he had to stop his medication a week due to his colonoscopy. His sugars had increase at that time. He is now back on his medication and sugars have been better. He is working with [facility] on his glycemic control (2) CHF (congestive heart failure), NYHA class II: Code(s): I50.9 - Heart failure, unspecified Category: Medical Qualifiers: Congestive heart failure chronicity: chronic Congestive heart failure type: systolic Qualified Code(s): I50.22 - Chronic systolic (congestive) heart failure Plan: Patient continues to follow cardiology at [facility]. He was found to have coronary artery disease and class 2 congestive heart failure as a result. He is now on high dose statin therapy and was started on Farxiga 10 mg. He otherwise he is asymptomatic without any overt signs of fluid overload. (3) Pre-op evaluation: Code(s): Z01.818 - Encounter for other preprocedural examination Category: Medical Plan: Patient's most recent labs and EKG has been stable. Glycemic control is the only concern here due to risk of postop infection and has been working with endocrinology on this. Patient medically clear for urological procedure. Orders: Orders Complete Blood Count no Diff Today Z01.818 - Encounter for other preprocedural examination Basic Metabolic Panel Today Z01.818 - Encounter for other preprocedural examination Influenza [id number] Immunization Today Z23 - Encounter for immunization
[2024-07-02 13:04] VITALS: BP 120/80; PULSE 90; O2SAT 99; BMI 34.6
== END 2024-07-02 13:36 | disposition home or self-care (01) ==
PROVIDERS: PCP Physician Assistant; Visit Provider Physician Assistant
DX: E11.59 Type 2 diabetes mellitus with other circulatory complications (principal); Z79.4 Long term (current) 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; I50.22 Chronic systolic (congestive) heart failure; Z01.818 Encounter for other preprocedural examination; Z23 Encounter for immunization

== ENCOUNTER → 2024-07-02 12:09 | Outpatient (BNVA) | payer OTHER, SELFPAY | PROVIDERS: PCP Physician Assistant; Visit Provider Physician Assistant | DX: Z01.818 Encounter for other preprocedural examination (principal); N47.1 Phimosis; E11.59 Type 2 diabetes mellitus with other circulatory complications; K21.9 Gastro-esophageal reflux disease without esophagitis; E66.9 Obesity, unspecified; J45.909 Unspecified asthma, uncomplicated; G47.33 Obstructive sleep apnea (adult) (pediatric); E78.5 Hyperlipidemia, unspecified; I50.22 Chronic systolic (congestive) heart failure; Z79.4 Long term (current) 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; Z23 Encounter for immunization | CPT/HCPCS: 90471; 90656; 99212 ==

== ENCOUNTER 2024-09-24 15:32 | Outpatient (AMB) | payer OTHER, SELFPAY ==
--- NOTE | 2024-09-24 15:52 | A.OFFPC_ITS ---
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 Required: No Accompanied by: Self / Same As Patient Allergies ibuprofen [From MOTRIN] Allergy (Intermediate, Verified 09/24/24 16:27) HIVES, Rash Medication List - Last Reconciled 09/24/24 by Deejay Gonzalez PA-C albuterol sulfate 90 mcg/actuation 2 puffs inhalation Q4-6H PRN aspirin (Adult Aspirin Regimen) 81 mg PO DAILY 90 days atorvastatin 80 mg PO BEDTIME 90 days bisacodyl (Dulcolax (bisacodyl)) 20 mg (4 x 5 mg) PO ONCE 1 day blood sugar diagnostic (FreeStyle Lite Strips) As directed four times a day blood-glucose meter (FreeStyle Lite Meter kit) As directed 3x/day blood-glucose meter,continuous (FreeStyle Lana 3 [place]) Use daily As directed to monitor blood glucose blood-glucose sensor (FreeStyle Lana 3 Plus Sensor device) Use daily As directed to monitor glucose dapagliflozin propanediol (Farxiga) 10 mg PO DAILY ezetimibe (Zetia) 10 mg PO DAILY fluticasone propionate 110 mcg/actuation (Flovent HFA) 2 puffs inhalation BID 30 days insulin aspart U-100 (Novolog FlexPen U-100 Insulin aspart) 25 - 45 units (0.25 - 0.45 mL) subcut TID 30 days lancets (FreeStyle Lancets) Three times a day metformin ER 1,000 mg (2 x 500 mg) PO BID 90 days methylcellulose (laxative) (Citrucel) 500 mg PO TID metoprolol succinate ER 100 mg PO DAILY 90 days miscellaneous medical supply 1 ea miscellaneous DAILY 99 days nystatin 1 appl topical DAILY 30 days omeprazole 20 mg PO DAILY peg 3350-electrolytes 236-22.74-6.74 -5.86 gram 240 mL PO Q10M pen needle, diabetic (BD Ultra-Fine Billie Pen Needle) 1 ea subcut QID 30 days sacubitril-valsartan 49-51 mg (Entresto) 0.5 tabs PO BID salmeterol (Serevent Diskus) 1 inh inhalation BID 30 days semaglutide (Ozempic) 2 mg (0.75 mL) subcut QWEEK sildenafil 100 mg PO DAILY PRN 7 days spironolactone 25 mg PO DAILY tadalafil 5 mg PO DAILY 30 days Tresiba FlexTouch U-200 (insulin degludec) 100 units (0.5 mL) subcut DAILY 30 days NS Vascepa (icosapent ethyl) 2 grams (2 x 1 gram) PO BID NS Tobacco use date assessed: 09/24/24 Dental Screening Dental Screen Date: 09/24/24 Did you have a dental visit in the last 12 months?: Yes Did you have a dental problem in the last 6 months where you did not have access to dental care?: No Was dental information given to patient?: Patient has dentist HPI Annual Exam HPI Details Patient is a 49-year-old male here today for routine annual physical. Patient has a past medical history significant for diabetes, GERD, obesity,? systolic heart failure, asthma, mild obstructive sleep apnea, hyperlipidemia. .. Type 2 diabetes:? Has reestablish care with [facility]. Most recent A1c elevated at 10.5. He recently was vacationing in [facility] [place] and does report some dietary indiscretion. He admits to being adherent to the use of all of his diabetic medication He reports his sugars are often high. Also has a new continues glucose monitor which has been helpful on glycemic control. Has upcoming appointment with his campaign advisor to discuss insulin regime // Asthma:? Patient is followed by certified home health aide and does have a cough variant asthma.? Continues on maintenance inhaler and daily basis. .. CHF:? Patient is followed by financial services education consultant (dr. Lozano) [facility]. He reports he recently was noted to have coronary artery disease causing his cardiomyopathy thus though Congestive heart failure. Was started on Farxiga 10 mg and high potency statin therapy. From a cardiovascular point of view has been stable.? He denies any chest discomforts, shortness of breath or rapid weight gain.? He does get by annual echocardiograms. Colonoscopy:Due for repeat colonoscopy 05/2025 Vaccine: Up-to-date with tetanus, pneumonia, COVID, declines flu vaccine Laboratory Tests 07/07/0808/30/23 01/01/24 15:00 14:05 15:01 Hgb A1c (Clinic) 11.2 H 10.5 H 8.0 H Hemoglobin A1c % 04/11/24 06/28/24 09/24/24 08:04 15:27 15:56 Hgb A1c (Clinic) 9.1 H 10.5 H Hemoglobin A1c % 8.5 H PFSH Medical History (Updated 09/25/24 @ 16:56 by Deejay Gonzalez PA-C) Annual physical exam Obesity (BMI 30-39.9) Colon cancer screening Obese Cardiomyopathy Gout of right knee History of DE (myocardial infarction) GERD (gastroesophageal reflux disease) Asthma CHRIS (obstructive sleep apnea) Effusion, right knee Patellofemoral arthritis of right knee Acid reflux Hypertension Dyslipidemia Surgical History Hx of rotator cuff surgery History of ear surgery History of surgery on arm Hx of esophagogastroduodenoscopy Hx of colonoscopy Hx of knee surgery Family History (Updated 09/24/24 @ 16:31 by Deejay Gonzalez PA-C) Father Diabetes Dementia Mother Diabetes Social History Housing: Apartment Are you a primary intensive care medicine specialist to a significant other at home: No Do you presently have visiting nurse or other home services: No Alcohol intake: never Patient Tobacco Use Status: Former Tobacco user Tobacco use type: Cigarette e-Cigarette/Vaping Use: Never Used Second Hand Smoke Exposure: No Substance Use Type: Marijuana service: No Current occupational status: disabled Current occupational exposures/hazards: No Cognitive needs: No Hearing needs: Yes (hearing aide) Vision needs: No Questionnaire PHQ-9 Over the last 2 weeks, how often have you been bothered by any of the following problems? 1. Little interest or pleasure in doing things: not at all 2. Feeling down, depressed, or hopeless: not at all 3. Trouble falling or staying asleep, or sleeping too much: not at all 4. Feeling tired or having little energy: not at all 5. Poor appetite or overeating: not at all 6. Feeling bad about yourself - or that you are a failure or have let yourself or your family down: not at all 7. Trouble concentrating on things, such as reading the newspaper or watching television: not at all 8. Moving or speaking so slowly that other people could have noticed. Or the opposite - being so fidgety or restless that you have been moving around a lot more than usual: not at all 9. Thoughts that you would be better off or of hurting yourself in some way: not at all Total score: 0 Depression Screening Interpretation: Negative Depression Screening Done: Yes Source: Developed by Drs. Adarsh Beatty, Adina Faria, Tano Martinez and colleagues, with an educational oscar from [employer]. Thrive Questionnaire Date Thrive assessed: 09/24/24 I am a: Patient What is your living situation today?: I have a steady place to live Within the past 12 months, did the food you bought not last and you didn't have the money to get more?: Never true Within the past 12 months, did you worry whether your food would run out before you got money to buy more?: Never true Do you have trouble paying for medicines?: No Do you have trouble getting transportation to medical appointments?: No Do you have trouble paying your heating and electricity bill?: No Do you have trouble taking care of your child, family member or friend?: No Do you have trouble with day-to-day activities such as bathing, preparing meals, shopping, managing finances, etc.?: No Are you currently unemployed and looking for a job?: No Are you interested in more education?: No Please select the resources that you would like help with: None Currently or been in a relationship where the following occur: No concerns reported THRIVE Score: 0 AUDIT C Alcohol Use Questionnaire (AUDIT-C) 1. How often do you have a drink containing alcohol?: Never Total Score: 0 BERNADETTE-7 AMB Questionnaire BERNADETTE-7 Date BERNADETTE - 7 assessed: 09/24/24 Feeling nervous, anxious, or on edge: 0 = Not at all Not being able to stop or control worryin = Not at all Worrying too much about different things: 0 = Not at all Trouble relaxin = Not at all Being so restless that it is hard to sit still: 0 = Not at all Becoming easily annoyed or irritable: 0 = Not at all Feeling afraid as if something awful might happen: 0 = Not at all Total BERNADETTE-7 score (0-4 normal; 5-9 mild; 10-14 moderate; 15-21 severe): 0 Source: Developed by Drs. Adarsh Beatty, Adina Faria, Tano Martinez and colleagues, with an educational oscar from [employer]. ACT Questionnaire In the past 4 weeks, how much of the time did your asthma keep you from getting as much done at work, school or at home?: None of the time During the past 4 weeks, how often have you had shortness of breath?: Not at all During the past 4 weeks, how often did your asthma symptoms wake you up at night or earlier than usual in the morning?: Not at all During the past 4 weeks, how often have you had to use your rescue inhaler or nebulizer medication?: Not at all How would you rate your asthma control during the past 4 weeks?: Completely controlled ACT Interpretation: Negative Score: 25 Review of Systems Const Denies body aches, Denies chills, Denies excessive sweating, Denies fatigue, Denies fever(s) and Denies headache(s) Eyes Denies blurry vision ENT Denies dysphagia, Denies vertigo, Denies dizziness, Denies headache(s), Denies hearing loss and Denies tinnitus Card Denies chest pain, Denies chest pain with activity, Denies syncope, Denies irregular heart rhythm and Denies dyspnea Resp Denies chest congestion, Denies cough, Denies hemoptysis, Denies dyspnea and Denies wheezing GI Denies abdominal pain, Denies melena, Denies hematochezia, Denies coffee ground emesis, Denies dysphagia, Denies diarrhea, Denies nausea and Denies vomiting Denies difficulty urinating, Denies dysuria, Denies urinary frequency, Denies urinary hesitancy and Denies urinary urgency Musc Denies arthralgias, Denies limited range of motion, Denies muscle cramps and Denies muscle weakness Skin/Breast Denies rash and Denies skin ulcer Neuro Denies Abnormal speech present, Denies confusion, Denies vertigo, Denies dizziness, Denies syncope, Denies headache(s), Denies memory loss and Denies seizure-like activity Psych Denies anxiety, Denies confusion, Denies depression, Denies memory loss, Denies panic attacks and Denies paranoia Endo Denies excessive sweating, Denies fatigue, Denies flushing, Denies polydipsia and Denies polyuria Aller/Immun Denies wheezing Physical exam (Primary Care) Vital Signs: Last Vital Signs Pulse 91 09/24/24 16:11 BP 112/70 09/24/24 16:11 Pulse Ox 94 09/24/24 16:11 Oxygen Delivery Method Room Air 09/24/24 16:11 BMI result Body Mass Index 35.6 BMI Assessment/Plan discussion: High BMI High, discussed plan: lifestyle, weight reduction, dietary and physical activity Tobacco/Smoking Status: Tobacco use Status Tobacco use date assessed 09/24/24 09/24/24 15:55 Patient Tobacco Use Status Former Tobacco user 09/24/24 15:55 Tobacco use type Cigarette 09/24/24 15:55 e-Cigarette/Vaping Use Never Used 09/24/24 15:55 PHQ-9: PHQ-9 Score PHQ-9: Total score 0 09/24/24 16:30 Depression Screening Interpretation: Negative Thrive Assessment: Date of Thrive Assessment Date Thrive assessed 09/24/24 09/24/24 15:55 Currently or been in a relationship where the following occur: No concerns reported Const General: cooperative, comfortable, no acute distress, alert and awake; No confusion Orientation/consciousness: oriented to person, oriented to place, patient oriented x3 and No confusion HENMT Head: Yes normocephalic Ears: external ears normal and TM's normal bilaterally Face and sinus: No sinus tenderness Mouth: Normal oral and palatal mucosa present and tongue normal Teeth and gingiva: dentition normal and gingiva normal Throat: Yes posterior oropharynx normal, Yes tonsils normal and Yes uvula midline Eyes Conjunctivae: conjunctivae normal Sclerae: sclerae normal Pupils: Equal, round and reactive pupils present EOM: EOMs intact bilaterally Direct Ophthalmoscopy: No no photophobia Neck Neck: Yes no lymphadenopathy, No tender and Yes no JVD Thyroid: Thyroid normal Carotids: no bruits Chest Chest palpation & inspection: no tenderness Resp Effort & Inspection: normal respiratory effort, no audible wheezes, not labored and no stridor Auscultation: no crackles, no rales, no rhonchi and no wheezes Cardio Jugular venous distension: no JVD Rate: regular rate, not bradycardic and not tachycardic Rhythm: regular rhythm Bruits: no carotid bruits Peripheral pulses: Peripheral pulses 2+ throughout GI Inspection: Yes normal to inspection, No abdominal wall ecchymosis and No visible herniation Palpation (GI): Soft to palpation, nontender, no guarding, not rigid and No hepatosplenomegaly present Auscultation: normoactive bowel sounds General: Yes no CVA tenderness Back/Spine/Pelvis Back: no CVA tenderness and No back tenderness Cervical Spine: cervical ROM normal Thoracic/Lumbar Spine: thoracic and lumbar spine normal to inspection, straight leg raise negative bilaterally, No thoraco-lumbar ROM limited and No lumbar spinal tenderness Skin Lesions: no lesions Rashes: no rashes Wounds: no wounds Neuro General: oriented to person, oriented to place, patient oriented x3, CN's II-XI intact bilaterally and No confusion Cranial nerves: Yes Equal, round and reactive pupils present and Yes Normal accommodation reflex present Cognition (Neuro): normal cognition Speech: No Abnormal speech present Gait exam (Neuro): Normal gait present Motor exam (neuro): 5/5 motor strength present throughout Extrem Right upper extremity: full ROM; no cyanosis Left upper extremity: full ROM; no cyanosis Right lower extremity: no edema Left lower extremity: no edema Psych Appearance: grossly normal Mental Status: mental status grossly normal Affect: normal affect Attitude: cooperative Thought process: Normal thought process present Results AMB Hemoglobin A1c AMB Hemoglobin A1c 10.5 % Last Edit by ELIDIA Bush on 09/24/24 16: 22 Results Reviewed Results Reviewed: Laboratory Last Values Hgb A1c (Clinic) 10.5 % (4.0-6.0) H 09/24/24 15:56 Coding Level of Care Code Est Pt Prev Care 40-64y(84155) Diagnoses Annual physical exam Z00.00 Type 2 diabetes mellitus with other circulatory complication, with long-term current 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 E11.59; Z79.4 Diabetes mellitus complication detail: with other circulatory complications Diabetes mellitus complication status: with circulatory complication Diabetes mellitus assisted insulin use: with medical terminologist use Diabetes mellitus type: type 2 Chronic systolic congestive heart failure, NYHA class 2 I50.22 Congestive heart failure chronicity: chronic Congestive heart failure type: systolic Moderate persistent asthma without complication J45.40 Asthma complication type: uncomplicated Asthma persistence: persistent Asthma severity: moderate Essential hypertension I10 Hypertension type: essential hypertension Tinea pedis of right foot B35.3 Laterality: right Class 1 obesity E66.811 Additional Codes Asthma Control Questionnaire - ACT Interpretation: Negative ([id number]) Assessment & Plan Assessment & Plan (1) Annual physical exam: Code(s): Z00.00 - Encounter for general adult medical examination without abnormal findings Category: Medical Plan: As per HPI (2) Diabetes: Code(s): E11.9 - Type 2 diabetes mellitus without complications Category: Medical Qualifiers: Diabetes mellitus complication detail: with other circulatory complications Diabetes mellitus complication status: with circulatory complication Diabetes mellitus medical terminologist insulin use: with assisted use Diabetes mellitus type: type 2 Qualified Code(s): E11.59 - Type 2 diabetes mellitus with other circulatory complications; Z79.4 - intermediate (current) 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 Plan: Patient's type 2 diabetes suboptimally controlled. Today's A1c at 10.5. He does report having high sugars recently. He did just vacation in [facility] [place] and does admit to some dietary indiscretion.. He is working with [facility] on his glycemic control (3) CHF (congestive heart failure), NYHA class II: Code(s): I50.9 - Heart failure, unspecified Category: Medical Qualifiers: Congestive heart failure chronicity: chronic Congestive heart failure type: systolic Qualified Code(s): I50.22 - Chronic systolic (congestive) heart failure Plan: Patient continues to follow cardiology at [facility]. He was found to have coronary artery disease and class 2 congestive heart failure as a result. He is now on high dose statin therapy and was started on Farxiga 10 mg. He otherwise he is asymptomatic without any overt signs of fluid overload. (4) Asthma: Comment: THIS PATIENT WAS TREATED MAINLY FOR ASTHMA VARIANT COUGH, WHICH RESOLVED WITH THE FOLLOWING INHALERS. TX : SEREVENT-50 1 INHALATION B.I.D. FLOVENT -100 1 INHALATION B.I.D.. CURRENTLY HE IS USING ONLY ONCE A DAY, AND IS STAYING FREE OF SYMPTOMS. HE SAY IS HE HARDLY NEEDS TO USE THE RESCUE INHALER/ Code(s): J45.909 - Unspecified asthma, uncomplicated Category: Medical Qualifiers: Asthma complication type: uncomplicated Asthma persistence: persistent Asthma severity: moderate Qualified Code(s): J45.40 - Moderate persistent asthma, uncomplicated Plan: Patient reports his asthma has been well controlled. He has not have to use any of his inhalers. He denies any nighttime awakenings with asthma symptoms. (5) Hypertension: Code(s): I10 - Essential (primary) hypertension Category: Medical Qualifiers: Hypertension type: essential hypertension Qualified Code(s): I10 - Essential (primary) hypertension Plan: Patient's blood pressure acceptable today in office. Will continue current dose of antihypertensive medication with goal blood pressure to remain below 140/90 (6) Tinea pedis: Code(s): B35.3 - Tinea pedis Category: Medical Qualifiers: Laterality: right Qualified Code(s): B35.3 - Tinea pedis Plan: Will supply patient with antifungal cream. (7) Class 1 obesity: Code(s): E66.811 - Obesity, class 1 Category: Medical Plan: Patient does understand his BMI is over 30 and will work on being more physically active and adapting to better eating habits to reduce his weight Orders: Orders AMB Hemoglobin A1c 09/24/24 E11.59 - Type 2 diabetes mellitus with other circulatory complications, Z79.4 - terminal worker (current) 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 Medications: New tadalafil administer approximately 30min before sexual activity; do not use more than 1 dose per 24hrs 20 mg PO DAILY 30 tabs 3RF sexual activity 30 days N52.8 - Other male erectile dysfunction ciclopirox 0.77% 1 appl topical BID 30 grams 1RF 4 weeks B35.3 - Tinea pedis Discontinued nystatin Discontinued Reason: Doctor's Order 1 appl topical DAILY 30 days 30 grams 0RF N47.1 - Phimosis, N48.1 - Balanitis sildenafil administer 30 minutes to 4 hours before activity Discontinued Reason: Doctor's Order 100 mg PO DAILY 7 days PRN 7 tabs 0RF sexual activity N52.8 - Other male erectile dysfunction On Hold tadalafil Hold Comment: Doctor's Order 5 mg PO DAILY 30 days 30 tabs 4RF Patient Instructions: Goal: A1c to be below 7.0, LDL to be below 100 Barriers: Adherence to physical activity and healthy eating habits
[2024-09-24 16:11] VITALS: BP 112/70; PULSE 91; O2SAT 94; BMI 35.6
== END 2024-09-24 16:51 | disposition home or self-care (01) ==
LOC: HO.HMCH 15:32
PROVIDERS: PCP Physician Assistant; Visit Provider Physician Assistant
DX: E11.59 Type 2 diabetes mellitus with other circulatory complications (principal); Z79.4 Long term (current) 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

== ENCOUNTER → 2024-09-24 15:32 | Outpatient (BNVA) | payer OTHER, SELFPAY | PROVIDERS: PCP Physician Assistant; Visit Provider Physician Assistant | DX: Z00.00 Encounter for general adult medical examination without abnormal findings (principal); E11.59 Type 2 diabetes mellitus with other circulatory complications; Z79.4 Long term (current) 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; I11.0 Hypertensive heart disease with heart failure; I50.22 Chronic systolic (congestive) heart failure; J45.40 Moderate persistent asthma, uncomplicated; B35.3 Tinea pedis; E66.811 Obesity, class 1; Z68.35 Body mass index [BMI] 35.0-35.9, adult; Z71.3 Dietary counseling and surveillance | CPT/HCPCS: 83036; 96160; 99396 ==

== ENCOUNTER 2024-10-04 13:09 | Outpatient (AMB) | payer OTHER, SELFPAY ==
--- NOTE | 2024-10-04 13:14 | MHC.OFFVIS ---
Vital Signs 10/04/24 13:18 10/04/24 13:59 Height 5 ft 10 in Weight 250 lb 7.122 oz BMI 35.9 BP 90/56 L Blood Pressure Location Lt brachial Position Sitting Pulse 110 H 100 Pulse Source Pulse Oximeter Pulse Oximetry (%) 94 Oxygen Delivery Method Room Air Intake Visit Reasons: T2DM Intake Note: Patient present today to follow up on Type 2 Diabetes Mellitus. Last Diabetic Eye exam: almost 1 year ago, has an eye appointment coming up sometime this month. Last Podiatry Visit: Does not see a Student Development Dean Random Glucose: 356 mg/dl HgA1C: 10.5% 09/24/2024 Senior Budget Analyst Required: No Accompanied by: Self / Same As Patient Allergies ibuprofen [From MOTRIN] Allergy (Intermediate, Verified 10/04/24 13:18) HIVES, Rash HPI Comments Details: Patient is a 49-year-old with a significant past medical history hypertension, hyperlipidemia, type 2 diabetes, CHF and obesity presenting for diabetic management. Hemoglobin A1c is 10.5% 09/24/24 up from 9.1%. He was on a 2 month vacation. He was eating a lot more sugary foods and carbohydrates. He has been back since August however and is following his regular diet. He does not have juice or soda unless it is diet. He uses splint in his coffee. He is frustrated by his blood sugars. Reviewed Lana 3+ download CGM active 73% Average glucose 241 G CA 9.1% Glucose variability 30.2% Very high 41% High 35% Target range 24% Low 0% Patient has hyperglycemia throughout the day which worsens in the afternoon and evening. He is currently on Tresiba U-200 100 units daily, NovoLog sliding scale, Farxiga 10 mg, Ozempic 2 mg weekly, metformin 1000 mg twice a day. Novolog scale: <200 25 >200 25+6 >250 25+8 >300 25 +10 >350 25+12 hypoglycemia-none in the last month hyperglycemia-Fatigue ROS: Constitutional: No unexplained weight loss, fever, chills, fatigue or night sweats. Eyes: No vision changes, blurry vision, double vision Respiratory: No shortness of breath, cough or sputum production. Cardiovascular: No chest pain, chest pressure or chest discomfort. No palpitations or pedal edema. Gastrointestinal: No nausea, vomiting or abdominal pain Neurologic: No headache, dizziness, syncope Skin: No rash or wounds Endocrine: No cold or heat intolerance. No polyuria or polydipsia. Physical exam: Constitutional: Alert, in no distress. Eyes: Pupils are equal, round and reactive to light. Extraocular muscles intact. Neck: Supple, Full range of motion. No lymphadenopathy. Respiratory: Clear to auscultation. Cardiovascular: S1 S2 regular. No murmurs. Neurologic: No focal neurological deficits [facility] Medical History (Updated 10/04/24 @ 14:19 by JENNIFER Cherry) Uncontrolled type 2 diabetes mellitus with hyperglycemia Annual physical exam Obesity (BMI 30-39.9) Colon cancer screening Obese Cardiomyopathy Gout of right knee History of [place] (myocardial infarction) GERD (gastroesophageal reflux disease) Asthma CHRIS (obstructive sleep apnea) Effusion, right knee Patellofemoral arthritis of right knee Acid reflux Hypertension Dyslipidemia Surgical History Hx of rotator cuff surgery History of ear surgery History of surgery on arm Hx of esophagogastroduodenoscopy Hx of colonoscopy Hx of knee surgery Family History Father Diabetes Dementia Mother Diabetes Social History Housing: Apartment Are you a primary critical care physician to a significant other at home: No Do you presently have visiting nurse or other home services: No Alcohol intake: never Patient Tobacco Use Status: Former Tobacco user Tobacco use type: Cigarette e-Cigarette/Vaping Use: Never Used Second Hand Smoke Exposure: No Substance Use Type: Marijuana service: No Current occupational status: disabled Current occupational exposures/hazards: No Cognitive needs: No Hearing needs: Yes (hearing aide) Vision needs: No Physical Exam Vital Signs: Last Vital Signs Pulse 110 H 10/04/24 13:18 BP 90/56 L 10/04/24 13:18 Pulse Ox 94 10/04/24 13:18 Oxygen Delivery Method Room Air 10/04/24 13:18 BMI result Body Mass Index 35.9 Office Procedures Glucose Monitoring Details Details: See [facility] [address] - Glucose monitoring, continuous-physician I&R Procedure code (CPT) selection complete Results Reviewed Results Reviewed: Laboratory Last Values Glucose (Clinic) 356 mg/dL (60-115) H* 10/04/24 13:30 Laboratory Tests 04/03/23 04/11/24 05/21/24 06:08 08:04 10:16 Creatinine 1.03 Estimated GFR > 60 POC Glucose 127 H Random Glucose 167 H Hemoglobin A1c % 8.5 H Triglycerides 215 H Cholesterol 104 LDL Cholesterol, Calc 36 HDL Cholesterol 25 L Urine Creatinine 37.12 Urine Microalbumin < 5.0 Microalb/Creat Ratio TNP Assessment & Plan Assessment & Plan (1) Uncontrolled type 2 diabetes mellitus with hyperglycemia: Code(s): E11.65 - Type 2 diabetes mellitus with hyperglycemia Category: Medical Plan In summary this is a 49-year-old male with uncontrolled type 2 diabetes with hyperglycemia and significant insulin resistance. Discussed pathophysiology of Type II Diabetes Mellitus with the patient in detail.? 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 Diabetic diet reinforced. If you experience low blood sugar, treat this by eating a chewable fruit candy like skittles or jelly beans (about 8 pieces), 4 ounces (1/2 cup) of fruit juice (not diet), 1 tablespoon of honey or 4 glucose tablets. If your blood sugar is under 55, take double the amount of one of the above. Recheck your blood sugar in 15 minutes. Increase Tresiba U-200 to 110 units every morning Continue Farxiga 10 mg, Ozempic 2 mg weekly, metformin 2000 mg daily. Adjust Novolog sliding scale: <200 25 units 200-249 25+8 units 250-299 25+10 units 300-349 25 +12 units >350 25+14 units Patient reminded to have lab work done. We will refer back to crepe machine operator and have patient follow up in 1 month. Orders: Orders AMB Glucose Monitoring Today E11.9 - Type 2 diabetes mellitus without complications Patient Instructions: If you experience low blood sugar, treat this by eating a chewable fruit candy like skittles or jelly beans (about 8 pieces), 4 ounces (1/2 cup) of fruit juice (not diet), 1 tablespoon of honey or 4 glucose tablets. If your blood sugar is under 55, take double the amount of one of the above. Recheck your blood sugar in 15 minutes. Increase Tresiba U-200 to 110 units every morning Continue Farxiga 10 mg, Ozempic 2 mg weekly, metformin 2000 mg daily. Novolog sliding scale: <200 25 units 200-249 25+8 units 250-299 25+10 units 300-349 25 +12 units >350 25+14 units Coding Level of Care Code Est Pt Level 4 (06072) Diagnoses Uncontrolled type 2 diabetes mellitus with hyperglycemia E11.65 CPT Codes Details - CPT: 78412 - Glucose monitoring, continuous-physician I&R ([id number])
[2024-10-04 13:18] VITALS: BP 90/56; PULSE 110; O2SAT 94; BMI 35.9
[2024-10-04 13:34] LABS: Glucose, Whole Blood 356 mg/dL (60-115)
[2024-10-04 13:59] VITALS: PULSE 100
== END 2024-10-04 14:14 | disposition home or self-care (01) ==
LOC: HO.ENCR 13:10
PROVIDERS: PCP Physician Assistant; Visit Provider Physician Assistant Medical
DX: E11.65 Type 2 diabetes mellitus with hyperglycemia (principal)

== ENCOUNTER → 2024-10-04 13:09 | Outpatient (BNVA) | payer OTHER, SELFPAY | PROVIDERS: PCP Physician Assistant; Visit Provider Physician Assistant Medical | DX: E11.65 Type 2 diabetes mellitus with hyperglycemia (principal); Z79.4 Long term (current) 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; Z79.84 Long term (current) use of oral hypoglycemic drugs | CPT/HCPCS: 82947; 99212 ==

== ENCOUNTER 2024-10-15 15:45 | Outpatient (AMB) | payer OTHER, SELFPAY ==
--- NOTE | 2024-10-15 15:49 | A.OFFVIS_ITS ---
Intake Intake Visit Reasons: T2DM Labor Commissioner Required: No Accompanied by: Self / Same As Patient Allergies ibuprofen [From MOTRIN] Allergy (Intermediate, Verified 10/04/24 13:18) HIVES, Rash HPI Comprehensive Diabetes Asmnt Most Recent Diabetes Results: Hemoglobin A1c 8.8 % 05/14/18 Microalb/Creat Ratio TNP 04/03/23 Cholesterol 104 mg/dL (<200) 04/11/24 HDL Cholesterol 25 mg/dL (>40) L 04/11/24 Triglycerides 215 mg/dL (<150) H 04/11/24 Creatinine 1.03 mg/dL (0.5-1.4) 04/11/24 Blood Urea Nitrogen 16 mg/dL (9-16) 04/11/24 Sodium 142 mmol/L (135-145) 04/11/24 Potassium 4.4 mmol/L (3.3-5.1) 04/11/24 Chloride 108 mmol/L (96-108) 04/11/24 Carbon Dioxide 25 mmol/L (22-29) 04/11/24 Calcium 10.2 mg/dL (8.4-10.2) 04/11/24 AST 23 U/L (5-37) 12/25/23 ALT 31 U/L (0-40) 12/25/23 Total Protein 6.6 g/dL (6.5-8.0) 12/25/23 Albumin 3.9 g/dL (3.5-5.0) 12/25/23 [facility] Medical History (Updated 10/04/24 @ 14:19 by JENNIFER Cherry) Uncontrolled type 2 diabetes mellitus with hyperglycemia Annual physical exam Obesity (BMI 30-39.9) Colon cancer screening Obese Cardiomyopathy Gout of right knee History of [place] (myocardial infarction) GERD (gastroesophageal reflux disease) Asthma CHRIS (obstructive sleep apnea) Effusion, right knee Patellofemoral arthritis of right knee Acid reflux Hypertension Dyslipidemia Surgical History Hx of rotator cuff surgery History of ear surgery History of surgery on arm Hx of esophagogastroduodenoscopy Hx of colonoscopy Hx of knee surgery Family History Father Diabetes Dementia Mother Diabetes Social History (Reviewed 10/04/24 @ 13:18 by LIZETTE Almendarez Housing: Apartment Are you a primary career development coordinator to a significant other at home: No Do you presently have visiting nurse or other home services: No Alcohol intake: never Patient Tobacco Use Status: Former Tobacco user Tobacco use type: Cigarette e-Cigarette/Vaping Use: Never Used Second Hand Smoke Exposure: No Substance Use Type: Marijuana service: No Current occupational status: disabled Current occupational exposures/hazards: No Cognitive needs: No Hearing needs: Yes (hearing aide) Vision needs: No Assessment & Plan Assessment & Plan (1) Uncontrolled type 2 diabetes mellitus with hyperglycemia: Code(s): E11.65 - Type 2 diabetes mellitus with hyperglycemia Plan: Learning objectives: The patient was provided with verbal and written education on the following topics as outlined below. The patient met all learning objectives and was able to verbalize understanding and provide teach back of education topics discussed . The patient was provided with the opportunity to ask questions and all questions were answered. 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 Instructed patient to contact [employer] service for assistance with reader. Patient is also waiting on approval for Lana 3+ sensors Patient's average glucose for the past 2 weeks 229 mg/dL Above target 67% At target 33% Below target 0% The patient is running above target, for the last 2 days of sensor patient's glucose have been much closer to target. Patient reports he has stopped drinking large amounts of diet soda in coffee, increased his vegetable intake. Encourage patient to continue with changes to meal plan, as it reflects positively in glucose numbers The end of Diabetes Education visit patient mentioned that he had been sent to review insulin pump therapy, no mention of this in providers note. Review briefly, the basics of insulin pump therapy. Instructed patient if he wants to proceed patient is set up carb counting appointment and pump assessment. Patient is currently on NovoLog t.i.d. Tresiba U 200, last note from JENNIFER increased Tresiba to 110 units daily Ozempic 2 mg weekly Farxiga 10 mg daily What is Diabetes? Pathophysiology How the body produces and uses insulin Identify type of DM Risk factors Signs of Diabetes Brief overview of Diabetes Management Monitoring blood sugar Following a meal plan Regular exercise Maintaining a healthy weight Taking medication as needed Members of the care team (PCP, RN, MA, RD, CDE, turn out worker) Blood glucose monitoring When/how often to test Target blood sugar ranges Introduction to Nutrition Importance of healthy diet in managing DM Diet is personalized to individual preference Review patient?s regular diet/food preferences Who prepares meals/does food shopping/ Dining out?/ Barriers? How diet effects glucose Eating 3 balanced meals a day with small, healthy snacks between meals Review food groups Carbohydrates: What is a carbohydrate/Which food/food groups are considered carbohydrates Effect of carbohydrates on blood glucose Portion sizes Reading food labels Basic carb counting (if applicable per nursing assessment) Plate method Meal planning Recommendations: Follow plate method, consistent carbs and read nutritional labels. Smart Goal: Patient will identify foods current meal plan that contain carbohydrates Educational Materials: The patient was provided with the following written educational materials: Planning Healthy Meals Handout Patient Response to instructions: Comprehension of Instructions: Fair Readiness to make changes: Contemplation How confident they feel about making changes: Positive Portions of this note were created using voice recognition software, please excuse any words or phrases that may have been misinterpreted. Incluir actividad diaria regular. ADA recomienda 30 minutos de ejercicio 5 d?as a la semana. P?rdida de peso, hable con el PCP o el cardi?logo antes de comenzar un nuevo plan. Mida el nivel de az?car en la wild seg?n las indicaciones; Ayuno y comida m?s ainsley de 2hpp. Observe las tendencias en los resultados. Utilice los resultados y eval?e c?mo los alimentos, la actividad f?fredy y los medicamentos afectan los resultados de az?car en la wild. Lleve el gluc?metro o CGM a la pr?xima visita. Conocer los medicamentos para la diabetes, peterson acci?n, los efectos secundarios, la eficacia, la toxicidad, la dosis prescrita, el momento y la frecuencia de administraci?n apropiados, el efecto de las dosis olvidadas y retrasadas y las instrucciones de almacenamiento, viaje y seguridad. T?cnicas de resoluci?n de problemas para el seguimiento de episodios de hipo/hiperglucemia y tratamientos. Reducir los comportamientos de reducci?n de riesgos, dejar de fumar, ex?menes regulares de ojos, pies y dentales. Patient Instructions: Include regular daily activity. ADA recommends 30 minutes of exercise 5 days a week. Weight loss talk to PCP or Tongue Trimmer before starting new plan. Test blood sugar as directed; Fasting and 2hpp largest meal. Watch trends in results. Utilize results and to assess how food, physical activity and medications affect blood sugar results. Bring glucometer or CGM to next visit. Be knowledgeable about diabetes medication, its action, side effects, efficacy, toxicity, prescribed dosage, appropriate timing and frequency of administration, effect of missed and delayed doses and instructions for storage, travel and safety. Problem solving techniques to monitor hypo/hyperglycemia episodes and treatments. Reduce risk reduction behaviors, smoking cessation, regular eye, foot and dental examinations. Coding Level of Care Code Est Pt Level 1 (93146) Diagnoses Uncontrolled type 2 diabetes mellitus with hyperglycemia E11.65
== END 2024-10-15 16:47 | disposition home or self-care (01) ==
LOC: HO.ENCR 15:46
PROVIDERS: PCP Physician Assistant; Visit Provider Registered Nurse Diabetes Educator
DX: E11.65 Type 2 diabetes mellitus with hyperglycemia (principal)

== ENCOUNTER → 2024-10-15 15:45 | Outpatient (BNVA) | payer OTHER, SELFPAY | PROVIDERS: PCP Physician Assistant; Visit Provider Registered Nurse Diabetes Educator | DX: E11.65 Type 2 diabetes mellitus with hyperglycemia (principal) | CPT/HCPCS: 99211 ==

== ENCOUNTER 2024-12-24 15:09 | Outpatient (AMB) | payer OTHER, SELFPAY ==
--- NOTE | 2024-12-24 08:08 | A.OFFVIS_ITS ---
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 Most Recent HgA1c: 8.2%, 12/24/2024 Random Glucose: 188 mg/dL, Today Section Supervisor Required: No Accompanied by: Self / Same As Patient Allergies ibuprofen [From MOTRIN] Allergy (Intermediate, Verified 12/24/24 15:13) HIVES, Rash Medication List - Last Reconciled 12/24/24 by Cindy Oneill NP albuterol sulfate 90 mcg/actuation 2 puffs inhalation Q4-6H PRN aspirin (Adult Aspirin Regimen) 81 mg PO DAILY 90 days atorvastatin 80 mg PO BEDTIME 90 days bisacodyl (Dulcolax (bisacodyl)) 20 mg (4 x 5 mg) PO ONCE 1 day blood sugar diagnostic (FreeStyle Lite Strips) As directed four times a day blood-glucose meter (FreeStyle Lite Meter kit) As directed 3x/day blood-glucose sensor (FreeStyle Lana 3 Plus Sensor device) Use daily As directed to monitor glucose blood-glucose,equity director,cont (FreeStyle Lana 3 [place]) Use daily As directed to monitor blood glucose ciclopirox 0.77% 1 appl topical BID 4 weeks empagliflozin (Jardiance) 10 mg PO DAILY 30 days ezetimibe 10 mg PO DAILY fluticasone propionate 110 mcg/actuation (Flovent HFA) 2 puffs inhalation BID 30 days Humalog KwikPen Insulin (insulin lispro) 1 sliding scale dose subcut USEASDIRECTD 30 days NS insulin aspart U-100 (Novolog FlexPen U-100 Insulin aspart) 25 - 45 units (0.25 - 0.45 mL) subcut TID 30 days lancets (FreeStyle Lancets) Three times a day metformin ER 1,000 mg (2 x 500 mg) PO BID 90 days methylcellulose (laxative) (Citrucel) 500 mg PO TID metoprolol succinate ER 100 mg PO DAILY 90 days miscellaneous medical supply 1 ea miscellaneous DAILY 99 days omeprazole 20 mg PO DAILY peg 3350-electrolytes 236-22.74-6.74 -5.86 gram 240 mL PO Q10M pen needle, diabetic As directed qid sacubitril-valsartan 49-51 mg (Entresto) 0.5 tabs PO BID salmeterol (Serevent Diskus) 1 inh inhalation BID 30 days semaglutide (Ozempic) 2 mg (0.75 mL) subcut QWEEK spironolactone 25 mg PO DAILY tadalafil 20 mg PO DAILY 30 days tadalafil 5 mg PO DAILY 30 days Tresiba FlexTouch U-200 (insulin degludec) 114 units (0.57 mL) subcut DAILY 30 days NS Vascepa (icosapent ethyl) 2 grams (2 x 1 gram) PO BID NS HPI Comments Details: Patient is a 49-year-old with a significant past medical history hypertension, hyperlipidemia, type 2 diabetes, CHF and obesity presenting for diabetic management. He has been followed by the primary care Diabetes Team. Hemoglobin A1c: 12/24/24 10.5% 09/24/24 up from 9.1%. He had been on a 2 month vacation prior to his last visit,. He was eating a lot more sugary foods and carbohydrates. He has been back since August however and is following his regular diet. He does not have juice or soda unless it is diet. He has not use the freestyle Lana in at least a few weeks as he had 3 sensors fall often a very short timeframe. Checks glucose 1-2 times per day Morning readings anywhere from 143-221 Later in the afternoon to 12/05/2072 Tresiba U-200 110 units every morning Farxiga 10 mg Ozempic 2 mg weekly metformin ER 2000 mg daily. Novolog sliding scale: <200 25 units 200-249 25+8 units 250-299 25+10 units 300-349 25 +12 units >350 25+14 units hypoglycemia-none in the last month hyperglycemia-Fatigue ROS: Constitutional: No unexplained weight loss, fever, chills, fatigue or night sweats. Cardiovascular: No chest pain, chest pressure or chest discomfort. No palpitations or pedal edema. Gastrointestinal: No nausea, vomiting or abdominal pain Neurologic: No headache, dizziness, syncope Skin: No rash or wounds Endocrine: No cold or heat intolerance. No polyuria or polydipsia. [facility] Medical History Uncontrolled type 2 diabetes mellitus with hyperglycemia Annual physical exam Obesity (BMI 30-39.9) Colon cancer screening Obese Cardiomyopathy Gout of right knee History of [place] (myocardial infarction) GERD (gastroesophageal reflux disease) Asthma CHRIS (obstructive sleep apnea) Effusion, right knee Patellofemoral arthritis of right knee Acid reflux Hypertension Dyslipidemia Surgical History Hx of rotator cuff surgery History of ear surgery History of surgery on arm Hx of esophagogastroduodenoscopy Hx of colonoscopy Hx of knee surgery Family History Father Diabetes Dementia Mother Diabetes Social History Housing: Apartment Are you a primary vocational childcare teacher to a significant other at home: No Do you presently have visiting nurse or other home services: No Alcohol intake: never Patient Tobacco Use Status: Former Tobacco user Tobacco use type: Cigarette e-Cigarette/Vaping Use: Never Used Second Hand Smoke Exposure: No Substance Use Type: Marijuana service: No Current occupational status: disabled Current occupational exposures/hazards: No Cognitive needs: No Hearing needs: Yes (hearing aide) Vision needs: No Physical Exam Vital Signs: Last Vital Signs Pulse 88 12/24/24 15:13 BP 118/76 12/24/24 15:13 Pulse Ox 98 12/24/24 15:13 Oxygen Delivery Method Room Air 12/24/24 15:13 BMI result Body Mass Index 35.1 Const Other: Absence of Cushingoid features. Absence of acromegalic features. Neck exam reveals nl size thyroid about 15 gms. No thyroid nodules palpable. Heart S1 S2, Reg R/R. No M/R G. Skin exam reveals absence of vitiligo or acanthosis No nigricans. No edema Visual exam of foot performed. No ulcerations or open lesions. No inter digit maceration or fissuring. No onychomycosis, slight callous great toe. Sensation intact to monofilament exam. Vibratory sensation is normal with 128 Hz tuning fork. Results AMB Hemoglobin A1c AMB Hemoglobin A1c 8.2 % Last Edit by ELIDIA Cohen on 12/24/24 15:44 Results Reviewed Results Reviewed: Laboratory Last Values Glucose (Clinic) 188 mg/dL (60-115) H 12/24/24 15:19 Assessment & Plan Assessment & Plan (1) Diabetes: Code(s): E11.9 - Type 2 diabetes mellitus without complications Category: Medical Qualifiers: Diabetes mellitus type: type 2 Diabetes mellitus shelter insulin use: with shelter use Diabetes mellitus complication status: with circulatory complication Diabetes mellitus complication detail: with other circulatory complications Qualified Code(s): E11.59 - Type 2 diabetes mellitus with other circulatory complications; Z79.4 - FDC (current) 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 Plan: Obese type 2 diabetic with improving glycemic control. A1c down to 8.2 from 10.5%. I recommend that he go back on the [employer] Lana and today in the office he was given a sample on occur contact the company to have the failed sensor replace. We briefly went over insertion technique and he seems to be doing this properly. Medication changes: Tresiba U-200 114 units every morning Farxiga 10 mg hernandez to Jardiance 10 mg Ozempic 2 mg weekly metformin ER 2000 mg daily. Novolog sliding scale: <200 25 units 200-249 25+8 units 250-299 25+10 units 300-349 25 +12 units >350 25+14 units He was instructed on site rotation and proper sites as he was using upper abdomen. Lost so increase needle size slightly for better penetration. Switch to U 200 as this should provide better absorption with less volume of insulin. Changing SGLT-2 inhibitor to jardiance as this is more effective We briefly discussed the benefits pros and of bariatric surgery. He has changed his diet in his incorporating more vegetables and salads. He walks 4 miles a day. Orders: Orders AMB Hemoglobin A1c Today E11.65 - Type 2 diabetes mellitus with hyperglycemia Medications: New empagliflozin (Jardiance) 10 mg PO DAILY 30 days 30 tabs 4RF pen needle, diabetic As directed qid 150 ea 11RF Humalog KwikPen Insulin (insulin lispro) 80-150 24 units 151-200 30 units 201-250 38 units 251-299 40 units 300-349 42 units and over 44 units 1 sliding scale dose subcut USEASDIRECTD 30 days 21 mL 2RF NS Changed From Tresiba FlexTouch U-200 (insulin degludec) 100 units (0.5 mL) subcut DAILY 30 days 3 mL 3RF NS E11.65 - Type 2 diabetes mellitus with hyperglycemia To Tresiba FlexTouch U-200 (insulin degludec) 114 units (0.57 mL) subcut DAILY 30 days 21 mL 3RF NS E11.65 - Type 2 diabetes mellitus with hyperglycemia Discontinued pen needle, diabetic (BD Ultra-Fine Billie Pen Needle) Discontinued Reason: Doctor's Order 1 ea subcut QID 30 days 120 caps 11RF E11.65 - Type 2 diabetes mellitus with hyperglycemia Coding Level of Care Code Est Pt Level 4 (34591) Complex EM visit Add On G2211 Diagnoses Type 2 diabetes mellitus with other circulatory complication, with long-term current 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 E11.59; Z79.4 Diabetes mellitus type: type 2 Diabetes mellitus shelter insulin use: with shelter use Diabetes mellitus complication status: with circulatory complication Diabetes mellitus complication detail: with other circulatory complications Time Spent (min) 30 Comment Time spent reviewing labs/provider notes, face to face, chart doc
[2024-12-24 15:13] VITALS: BP 118/76; PULSE 88; O2SAT 98; BMI 35.1
[2024-12-24 15:23] LABS: Glucose, Whole Blood 188 mg/dL (60-115)
== END 2024-12-24 16:03 | disposition home or self-care (01) ==
LOC: HO.ENCR 15:09
PROVIDERS: PCP Physician Assistant; Visit Provider Nurse Practitioner Adult Health
DX: E11.59 Type 2 diabetes mellitus with other circulatory complications (principal); Z79.4 Long term (current) 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; E11.65 Type 2 diabetes mellitus with hyperglycemia
CPT/HCPCS: 99214; G2211

== ENCOUNTER → 2024-12-24 15:09 | Outpatient (BNVA) | payer OTHER, SELFPAY | PROVIDERS: PCP Physician Assistant; Visit Provider Nurse Practitioner Adult Health | DX: E11.65 Type 2 diabetes mellitus with hyperglycemia (principal); Z79.4 Long term (current) 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; Z79.84 Long term (current) use of oral hypoglycemic drugs | CPT/HCPCS: 82947; 83036; 99212 ==

== ENCOUNTER 2025-01-29 06:04 | Outpatient (REF) | payer OTHER, SELFPAY ==
[2025-01-29 07:36] LABS: Hematocrit 50.9 % (42.0-52.0); Hemoglobin 16.9 g/dl (14.0-18.0); Mean Corpuscular HGB Conc 33.2 g/dl (31.0-36.0); Mean Corpuscular Hemoglobin 29.1 pg (27.0-33.0); Mean Corpuscular Volume 87.8 fL (80.0-98.0); NRBC Abs Auto 0.000 X10*3/uL (0.0-0.012); NRBC Pct Auto 0.0 /100WBC (0.0-0.2); Platelet Count 216 X10*3/uL (160-400); Red Blood Count 5.80 X10*6/uL (4.60-5.80); White Blood Count 7.2 X10*3/uL (4.8-10.8)
[2025-01-29 07:42] LABS: Hemoglobin A1C 285.3121 umol/L; Total Hemoglobin (HGBA1C) 4276.4540 umol/L
[2025-01-29 08:04] LABS: B Type Natriuretic Peptide < 10 pg/mL (<100)
[2025-01-29 08:07] LABS: Alanine Aminotransferase 42 U/L (0-40); Albumin Level 4.3 g/dL (3.5-5.0); Alkaline Phosphatase 66 U/L (39-117); Anion Gap 14 (12-20); Aspartate Amino Transferase 28 U/L (5-37); Blood Urea Nitrogen 16 mg/dL (9-16); Calcium 9.0 mg/dL (8.4-10.2); Carbon Dioxide 24 mmol/L (22-29); Chloride 107 mmol/L (96-108); Estimated Glomerular Filt Rate > 60; Potassium 4.5 mmol/L (3.3-5.1); Sodium 140 mmol/L (135-145); Total Protein 6.9 g/dL (6.5-8.0)
[2025-01-29 08:17] LABS: Microalbum/Creatinine Ratio Ur 7.0 ug/mg cr (<30)
== END 2025-01-29 06:05 | disposition home or self-care (01) ==
LOC: HO.LAB 06:04
PROVIDERS: Absent Provider Physician Assistant; PCP Physician Assistant; Visit Provider Physician Assistant
DX: Z01.818 Encounter for other preprocedural examination (principal); E11.65 Type 2 diabetes mellitus with hyperglycemia; E78.5 Hyperlipidemia, unspecified; I10 Essential (primary) hypertension
CPT/HCPCS: 36415; 80048; 80053; 82043; 82570; 83036; 83880; 85027

== ENCOUNTER 2025-03-05 14:37 | Outpatient (AMB) | payer OTHER, SELFPAY ==
--- NOTE | 2025-03-05 14:53 | A.OFFVIS_ITS ---
Vital Signs 03/05/25 14:54 Height 5 ft 10 in Weight 245 lb BMI 35.2 BP 101/57 L Blood Pressure Location Lt brachial Position Sitting Pulse 86 Pulse Oximetry (%) 97 Oxygen Delivery Method Room Air Intake Visit Reasons: [place] Screening JM pt Intake Note: Patient complex follow up for pre Colonoscopy screening./An kelvin was 10/25/2021 and last Colonoscopy was 05/21/2024 by [place] and 1 yr recall. Patient cc: acid reflux medication is not helping, diarrhea on and off, bad odor when he burping, and some swallowing difficulties. Denies any other GI issues. Chair Car Attendant Required: No Accompanied by: Self / Same As Patient Allergies ibuprofen (From MOTRIN) Allergy (Intermediate, Verified 03/05/25 14:52) HIVES, Rash Medication List - Last Reconciled 03/05/25 by Shannon Hollins CNP albuterol sulfate 90 mcg/actuation 2 puffs inhalation Q4-6H PRN aspirin (Adult Aspirin Regimen) 81 mg PO DAILY 90 days atorvastatin 80 mg PO BEDTIME 90 days bisacodyl (Dulcolax (bisacodyl)) 20 mg (4 x 5 mg) PO ONCE 1 day blood sugar diagnostic (FreeStyle Lite Strips) As directed four times a day blood-glucose meter (FreeStyle Lite Meter kit) As directed 3x/day blood-glucose sensor (FreeStyle Lana 3 Plus Sensor device) Use daily As directed to monitor glucose blood-glucose,vice president diversity,cont (FreeStyle Lana 3 [place]) Use daily As directed to monitor blood glucose ciclopirox 0.77% 1 appl topical BID 4 weeks empagliflozin (Jardiance) 10 mg PO DAILY 30 days ezetimibe 10 mg PO DAILY fluticasone propionate 110 mcg/actuation (Flovent HFA) 2 puffs inhalation BID 30 days Humalog KwikPen Insulin (insulin lispro) 1 sliding scale dose subcut USEASDIRECTD 30 days MDD maximum dose 132 units per day NS ketoconazole 2% 1 appl topical DAILY 4 weeks lancets (FreeStyle Lancets) Three times a day metformin ER 1,000 mg (2 x 500 mg) PO BID 90 days methylcellulose (laxative) (Citrucel) 500 mg PO TID metoprolol succinate ER 100 mg PO DAILY 90 days miscellaneous medical supply 1 ea miscellaneous DAILY 99 days pantoprazole 40 mg PO QAM peg 3350-electrolytes 236-22.74-6.74 -5.86 gram 240 mL PO Q10M pen needle, diabetic As directed qid sacubitril-valsartan 49-51 mg (Entresto) 0.5 tabs PO BID salmeterol (Serevent Diskus) 1 inh inhalation BID 30 days semaglutide (Ozempic) 2 mg (0.75 mL) subcut QWEEK spironolactone 25 mg PO DAILY tadalafil 20 mg PO DAILY 30 days tadalafil 5 mg PO DAILY 30 days Held on 09/24/24. Instructions: Doctor's Order Tresiba FlexTouch U-200 (insulin degludec) 114 units (0.57 mL) subcut DAILY 30 days NS Vascepa (icosapent ethyl) 2 grams (2 x 1 gram) PO BID NS HPI HPI [place] Screening pt: Details: Patient is a 49-year-old male with PMH of obesity, diabetes, hypertension, dyslipidemia asthma and GERD. Referred by PCP for pre colonoscopy screening Here for repeat colonoscopy; prior incomplete in 05/2024 d/t poor prep. He is accompanied by . They report a history of diarrhea lasting three to four months earlier this year, with resolution approximately one month ago. During the diarrhea phase, stools were frequent and poorly formed, which the patient attributes to stress related to recent events. Stool quality has since normalized to daily soft stools without constipation but remains somewhat loose. The patient recalls passing blood in stools a month and a half ago, occurring in a few episodes with blood noticed both on wiping and in the toilet bowl. No current episodes of blood were reported. The patient also reports long-standing GERD, treated with omeprazole 20mg for approximately 10 years. Despite occasional doubling of their dose, they have been experiencing persistent burning sensations and occasional regurgitation with worsening over the past two days. Common triggers (spicy, fatty foods) worsen symptoms. Currently, their routine diet involves increased salads contributing to improved glycemic control. Shares history of two myocardial infarctions at age 26-27, established with [facility]; diabetes mellitus managed with Tresiba, Semaglutide, metformin, Empagliflozin and Humalog, marked by an improved HbA1c from ~12% to 8.3% in January 2025. Family cancer history includes breast and pancreatic cancer but no personal history of malignancy. Patient denies: fever/chills, n/v, appetite changes,dysphasia, unintentional wt loss. Social hx: -denies ETOH use -former marijuana use, denies current recreational drug use -non-smoker - family hx as below -denies personal hx of CA -tolerated anesthesia in the past without difficulty. [facility] Medical History (Updated 03/05/25 @ 16:54 by Shannon Hollins CNP) Low-level of literacy Uncontrolled type 2 diabetes mellitus with hyperglycemia Annual physical exam Obesity (BMI 30-39.9) Colon cancer screening Obese Cardiomyopathy Gout of right knee History of [place] (myocardial infarction) GERD (gastroesophageal reflux disease) Asthma CHRIS (obstructive sleep apnea) Effusion, right knee Patellofemoral arthritis of right knee Acid reflux Hypertension Dyslipidemia Surgical History Hx of rotator cuff surgery History of ear surgery History of surgery on arm Hx of esophagogastroduodenoscopy Hx of colonoscopy Hx of knee surgery Family History Father Diabetes Dementia Mother Diabetes Social History Housing: Apartment Are you a primary healthcare receptionist to a significant other at home: No Do you presently have visiting nurse or other home services: No Alcohol intake: never Patient Tobacco Use Status: Former Tobacco user Tobacco use type: Cigarette e-Cigarette/Vaping Use: Never Used Second Hand Smoke Exposure: No Substance Use Type: Marijuana service: No Current occupational status: disabled Current occupational exposures/hazards: No Cognitive needs: No Hearing needs: Yes (hearing aide) Vision needs: No Review of Systems Const Reports as per HPI ENT Reports as per HPI Card Reports as per HPI Resp Reports as per HPI GI Reports as per HPI Reports as per HPI Physical Exam Vital Signs: Oxygen Delivery Method Room Air 03/05/25 14:54 BMI result Body Mass Index 35.2 Const General: healthy appearing, no acute distress and well developed Nutritional Appearance: average body habitus Orientation/consciousness: patient oriented x3 HEENT Head: Yes normal to inspection, Yes normocephalic and Yes atraumatic Face and sinus: Yes normal facial exam Eyes General: appearance normal, both eyes and all related structures Neck Neck: Yes normal visual inspection Resp Effort & Inspection: normal respiratory effort, able to speak in complete sentences, no tracheal deviation and symmetric chest movement Auscultation: clear to auscultation bilaterally Cardio Jugular venous distension: no JVD Rate: regular rate Rhythm: regular rhythm Heart sounds: S1 normal heart sound present, S2 normal heart sound present, no gallops and no murmurs GI Inspection: Yes normal to inspection, No distended and Yes obesity Palpation (GI): Soft to palpation, not firm, nontender and No hepatosplenomegaly present Auscultation: normoactive bowel sounds Neuro General: patient oriented x3 Gait exam (Neuro): Normal gait present Psych Appearance: grossly normal Mental Status: mental status grossly normal Speech and movement: Normal speech and movement present Affect: normal affect Attitude: cooperative Thought process: Normal thought process present Thought content: Normal thought content present Insight: Good insight present (Psych) Judgement: Good judgement present (Psych) Results Reviewed Results Reviewed: Operative Note Date of Service: 05/21/24 Narrative: Procedure: Colonoscopy Indication: Personal history of polyps Endoscopist: Kim Wood MD Procedure: The patient was brought to the procedure room and placed in the left lateral decubitus position. IV medications were administered by the anesthesia provider in attendance. A digital rectal exam was performed which was normal. A distal attachment cap was affixed to the tip of the colonoscope which was then inserted through the anus and advanced through the colon to the cecum at 80 cm,and terminal ileum. Appendiceal orifice and ileocecal valve were identified. Mucosa was carefully examined under high definition white light as the instrument was slowly withdrawn in a retrograde panoramic fashion. Retroflexion was performed in rectum. The procedure was not difficult. There were no immediate obvious complications. The quality of the prep was BBPS: 2+1+2 = inadequate Withdrawal time 8 minutes. Limitations: Poor prep. Findings: Mucosa: Copious liquid opaque stool with solid debris was noted throughout the colon. This was extensively flushed and suctioned however adequate visualisation could not be achieved zayra in transverse colon. Protruding lesions: Medium internal hemorrhoids without stigmata of recent bleeding. Impression: 1. Poor prep 2. Internal hemorrhoids Recommendations: - Repeat colonoscopy to be booked within a year. - Pt was counseled in the pacu re following instructions for a good prep (didn't follow clear liquid diet the day before, had a hamburger for lunch) Assessment & Plan Assessment & Plan (1) Encounter for screening colonoscopy: Comment: 05/21/2024 colonoscopy- complete with poor prep-internal hemorrhoids. Recommendation for repeat in 1 year. Code(s): Z12.11 - Encounter for screening for malignant neoplasm of colon Category: Medical Plan: Prior attempt failed due to poor bowel prep. Additional Testing: Colonoscopy and upper endoscopy. Pre procedural instructions: -Diet: Low-residue diet 2 days before the procedure (avoid raw fruits/vegetables, corn, nuts, granola, etc.). Clear liquid diet day prior to procedure (broth, jello except red/blue/purple, popsicles, coffee/tea without cream). -Medication Management: Understands diabetes medications and ASA will need to be held days prior to procedure. Nurse to review med holds per protocol. -Will need cardiac clearance, upcoming appointment scheduled for March 2025 (2) GERD (gastroesophageal reflux disease): Code(s): K21.9 - Gastro-esophageal reflux disease without esophagitis Category: Medical Qualifiers: Esophagitis presence: esophagitis presence not specified Qualified Code(s): K21.9 - Gastro-esophageal reflux disease without esophagitis Plan: Persistent symptoms despite omeprazole for 10 years, worsening recently, requiring alternative treatment. Additional Testing: Plan for upper endoscopy during colonoscopy to evaluate esophagus and stomach mucosa. Medication Management: -Discontinue omeprazole -initiate pantoprazole 40mg once daily Encouraged to take pantoprazole as prescribed, taken at least 30-60 minutes before a meal. Education on GERD prevention : -Advised against heavy meals; encouraged small meals instead of large ones. - Instructed to remain upright for 2?3 hours after eating. - Advised to avoid late-night meals, spicy foods, caffeine, alcohol, known dietary triggers, and tight-fitting clothing. - Emphasis placed on gradual implementation of lifestyle changes to improve adherence and symptom control. (3) Uncontrolled type 2 diabetes mellitus with hyperglycemia: Code(s): E11.65 - Type 2 diabetes mellitus with hyperglycemia Category: Medical Plan: Hx T2DM with recent improvement in A1c; multiple agents. Additional Testing: None at this time; monitor glucose beena-procedurally. Medication Management: Continue current regimen Lifestyle Recommendations: Maintain current dietary modifications; continue increased salad/vegetable intake, limit sugars. Follow-Up: Monitor A1c and glucose per guidelines with PCP Plan Resolved chronic diarrhea, likely stress/diet induced. Will monitor Follow-up after endoscopy or sooner as needed Time: I spent a total of 45 minutes on the date of encounter which includes: Preparing to see the patient (reviewed previous documentation, test results and medical history) Performing a medically appropriate exam and/or evaluation Ordering medications, tests, and procedures Documenting clinical information in the health record Medications: New bisacodyl (Dulcolax (bisacodyl)) Take four tablets pre colonoscopy instructions 20 mg (4 x 5 mg) PO ONCE 4 tabs 0RF 1 day polyethylene glycol 3350 (Miralax) per colonoscopy prep instructions 238 grams PO ONCE 238 grams 0RF pantoprazole Take 1 tablet daily. Best taken on an empty stomach, 30 minutes before food 40 mg PO QAM 90 tabs 1RF Discontinued bisacodyl (Dulcolax (bisacodyl)) take at noon the day before colonoscopy Discontinued Reason: Duplicate 20 mg (4 x 5 mg) PO ONCE 1 day 4 tabs 0RF peg 3350-electrolytes 236-22.74-6.74 -5.86 gram until fecal effluent is clear Discontinued Reason: Duplicate 240 mL PO Q10M 4,000 mL 0RF omeprazole Discontinued Reason: Doctor's Order 20 mg PO DAILY 90 caps 1RF Coding Level of Care Code Established Pt New Pt Level 4 (85078) Patient Type Established Diagnoses Encounter for screening colonoscopy Z12.11 Gastroesophageal reflux disease, unspecified whether esophagitis present K21.9 Esophagitis presence: esophagitis presence not specified Uncontrolled type 2 diabetes mellitus with hyperglycemia E11.65
[2025-03-05 14:54] VITALS: BP 101/57; PULSE 86; O2SAT 97; BMI 35.2
== END 2025-03-05 16:10 | disposition home or self-care (01) ==
LOC: HO.HGI 14:37
PROVIDERS: PCP Physician Assistant; Visit Provider Nurse Practitioner Family
DX: R19.7 Diarrhea, unspecified (principal); K62.5 Hemorrhage of anus and rectum; K21.9 Gastro-esophageal reflux disease without esophagitis; Z12.11 Encounter for screening for malignant neoplasm of colon; E11.65 Type 2 diabetes mellitus with hyperglycemia
CPT/HCPCS: 99204

== ENCOUNTER → 2025-03-05 14:37 | Outpatient (BNVA) | payer OTHER, SELFPAY | PROVIDERS: PCP Physician Assistant; Visit Provider Nurse Practitioner Family | DX: Z01.818 Encounter for other preprocedural examination (principal); K21.9 Gastro-esophageal reflux disease without esophagitis; E11.65 Type 2 diabetes mellitus with hyperglycemia | CPT/HCPCS: 99202 ==

== ENCOUNTER 2025-03-28 15:14 | Outpatient (AMB) | payer OTHER, SELFPAY ==
--- NOTE | 2025-03-28 15:24 | MHC.OFFVIS ---
Vital Signs 03/28/25 15:26 Height 5 ft 10 in Weight 245 lb 9.519 oz BMI 35.2 BP 94/60 Blood Pressure Location Rt brachial Position Sitting Pulse 98 Pulse Source Pulse Oximeter Pulse Oximetry (%) 96 Oxygen Delivery Method Room Air Intake Visit Reasons: [place] Intake Note: Patient present today to follow up on Type 2 Diabetes Mellitus. 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 Required: No Accompanied by: Spouse Allergies ibuprofen (From MOTRIN) Allergy (Intermediate, Verified 03/28/25 15:27) HIVES, Rash Medication List - Last Reconciled 03/28/25 by JENNIFER Cherry albuterol sulfate 90 mcg/actuation 2 puffs inhalation Q4-6H PRN aspirin (Adult Aspirin Regimen) 81 mg PO DAILY 90 days atorvastatin 80 mg PO BEDTIME 90 days bisacodyl (Dulcolax (bisacodyl)) 20 mg (4 x 5 mg) PO ONCE 1 day blood sugar diagnostic (FreeStyle Lite Strips) As directed four times a day blood-glucose meter (FreeStyle Lite Meter kit) As directed 3x/day blood-glucose sensor (FreeStyle Lana 3 Plus Sensor device) Use daily As directed to monitor glucose blood-glucose,site superintendent,cont (FreeStyle Lana 3 [place]) Use daily As directed to monitor blood glucose ciclopirox 0.77% 1 appl topical BID 4 weeks ezetimibe 10 mg PO DAILY fluticasone propionate 110 mcg/actuation (Flovent HFA) 2 puffs inhalation BID 30 days insulin aspart U-100 (Novolog FlexPen U-100 Insulin aspart) 1 sliding scale dose subcut USEASDIRECTD insulin degludec (Tresiba FlexTouch U-200 insulin) 116 units subcut DAILY ketoconazole 2% 1 appl topical DAILY 4 weeks lancets (FreeStyle Lancets) Three times a day metformin ER 1,000 mg (2 x 500 mg) PO BID 90 days methylcellulose (laxative) (Citrucel) 500 mg PO TID metoprolol succinate ER 100 mg PO DAILY 90 days miscellaneous medical supply 1 ea miscellaneous DAILY 99 days pantoprazole 40 mg PO QAM pen needle, diabetic As directed qid polyethylene glycol 3350 (Miralax) 238 grams PO ONCE sacubitril-valsartan 49-51 mg (Entresto) 0.5 tabs PO BID salmeterol (Serevent Diskus) 1 inh inhalation BID 30 days semaglutide (Ozempic) 2 mg (0.75 mL) subcut QWEEK spironolactone 25 mg PO DAILY tadalafil 20 mg PO DAILY 30 days tadalafil 5 mg PO DAILY 30 days Held on 09/24/24. Instructions: Doctor's Order Vascepa (icosapent ethyl) 2 grams (2 x 1 gram) PO BID NS HPI Comments Details: Patient is a 49-year-old with a significant past medical history hypertension, hyperlipidemia, type 2 diabetes, CHF and obesity presenting for diabetic management. Hemoglobin A1c is 8.3% 01/29/25. He forgot his glucometer. Reports fasting and random glucose are between 220-270. Denies hypoglycemia Patient contacted 3x to get a new [employer] reader. Still hast not received this. He kept getting sensor error with application of new sensor. Saw CDE and has a follow up this month. He is not allowed to you this has phone during work even with a letter from a physician. He is currently on Tresiba U-200 116 units every morning, Humalog sliding scale, Jardiance 10 mg (worsening balanitis per patient) , Ozempic 2 mg weekly, metformin 1000 mg twice a day. Humalog sliding scale: 80-150 24 units 151-200 30 units 201-250 38 units 251-299 40 units 300-349 42 units 350 and over 44 units. He is not taking Humalog consistently because he is having burning at the injection site. He wants to switch back to NovoLog. Past medication: Farxiga switch to Jardiance He is eating a lot of salads with protein and vegetables. He is only having 0 sugar juice. He drinks beer very rarely. He is a nonsmoker. hypoglycemia-none in the last month hyperglycemia-Fatigue ROS: Constitutional: No unexplained weight loss, fever, chills, fatigue or night sweats. Eyes: No vision changes, blurry vision, double vision Respiratory: No shortness of breath, cough or sputum production. Cardiovascular: No chest pain, chest pressure or chest discomfort. No palpitations or pedal edema. Gastrointestinal: No nausea, vomiting or abdominal pain Neurologic: No headache, dizziness, syncope Skin: +balanitis and using topical cream for this Endocrine: No cold or heat intolerance. No polyuria or polydipsia. Physical exam: Constitutional: Alert, in no distress. Eyes: Pupils are equal, round and reactive to light. Extraocular muscles intact. Neck: Supple, Full range of motion. No lymphadenopathy. Respiratory: Clear to auscultation. Cardiovascular: S1 S2 regular. No murmurs. Neurologic: No focal neurological deficits [facility] Medical History (Updated 03/05/25 @ 17:08 by Shannon Hollins CNP) Low-level of literacy Uncontrolled type 2 diabetes mellitus with hyperglycemia Annual physical exam Obesity (BMI 30-39.9) Colon cancer screening Obese Cardiomyopathy Gout of right knee History of [place] (myocardial infarction) GERD (gastroesophageal reflux disease) Asthma CHRIS (obstructive sleep apnea) Effusion, right knee Patellofemoral arthritis of right knee Acid reflux Hypertension Dyslipidemia Surgical History Hx of rotator cuff surgery History of ear surgery History of surgery on arm Hx of esophagogastroduodenoscopy Hx of colonoscopy Hx of knee surgery Family History Father Diabetes Dementia Mother Diabetes Social History Housing: Apartment Are you a primary long term acute care registered nurse to a significant other at home: No Do you presently have visiting nurse or other home services: No Alcohol intake: never Patient Tobacco Use Status: Former Tobacco user Tobacco use type: Cigarette e-Cigarette/Vaping Use: Never Used Second Hand Smoke Exposure: No Substance Use Type: Marijuana service: No Current occupational status: disabled Current occupational exposures/hazards: No Cognitive needs: No Hearing needs: Yes (hearing aide) Vision needs: No Physical Exam Vital Signs: Last Vital Signs Pulse 98 03/28/25 15:26 BP 94/60 03/28/25 15:26 Pulse Ox 96 03/28/25 15:26 Oxygen Delivery Method Room Air 03/28/25 15:26 BMI result Body Mass Index 35.2 Results Reviewed Results Reviewed: Laboratory Last Values Glucose (Clinic) 160 mg/dL (60-115) H 03/28/25 15:33 Laboratory Tests 04/11/24 01/29/25 01/29/25 08:04 06:16 06:19 Plt Count 216 Creatinine 1.03 1.02 Estimated GFR > 60 > 60 Hemoglobin A1c % 8.3 H B-Natriuretic Peptide < 10 Triglycerides 215 H Cholesterol 104 LDL Cholesterol, Calc 36 HDL Cholesterol 25 L Urine Creatinine 127.62 Urine Microalbumin 9.0 Microalb/Creat Ratio 7.0 Assessment & Plan Assessment & Plan (1) Uncontrolled type 2 diabetes mellitus with hyperglycemia: Code(s): E11.65 - Type 2 diabetes mellitus with hyperglycemia Category: Medical Plan In summary this is a 49-year-old male with uncontrolled type 2 diabetes with hyperglycemia. Discussed pathophysiology of Type II Diabetes Mellitus with the patient in detail.? I explained the longterm risks and complications associated with uncontrolled diabetes including nephropathy, neuropathy, peripheral vascular disease, retinopathy, increased risk of heart disease and stroke.? Diabetic diet reinforced. If you experience low blood sugar, treat this by eating a chewable fruit candy like skittles or jelly beans (about 8 pieces), 4 ounces (1/2 cup) of fruit juice (not diet), 1 tablespoon of honey or 4 glucose tablets. If your blood sugar is under 50, take double the amount of one of the above. Recheck your blood sugar in 15 minutes. Continue Tresiba U200 116 units daily. Stopped Jardiance due to worsening balanitis. Continue Ozempic 2 mg weekly. We briefly discussed potentially switching to Mounjaro, but he declines medication changes at this visit. Continue metformin ER 1000 mg twice daily. He will switch back to NovoLog. He has this at home still. I submitted a new prescription to the pharmacy. It is medically necessary to switch since Humalog is causing burning sensation with injection which has led to some noncompliance. Maintain same scale for NovoLog as Humalo-150 24 units 151-200 30 units 201-250 38 units 251-299 40 units 300-349 42 units 350 and over 44 units He has a follow up with the cobol developer this month. He is waiting to receive a new reader. I will try to touch base to see if we have a sample he can use. Follow up in 1 month. Medications: New insulin aspart U-100 (Novolog FlexPen U-100 Insulin aspart) 3x daily before meals per sliding scale: 80-150 24 units 151-200 30 units 201-250 38 units 251-299 40 units 300-349 42 units 350 and over 44 units 1 sliding scale dose subcut USEASDIRECTD 45 mL 5RF JENNIFER Cherry Changed From Tresiba FlexTouch U-200 (insulin degludec) 114 units (0.57 mL) subcut DAILY 30 days 21 mL 3RF NS E11.65 - Type 2 diabetes mellitus with hyperglycemia To insulin degludec (Tresiba FlexTouch U-200 insulin) 116 units subcut DAILY E11.65 - Type 2 diabetes mellitus with hyperglycemia Deejay Gonzalez PA-C Discontinued empagliflozin (Jardiance) Discontinued Reason: Doctor's Order 10 mg PO DAILY 30 days 30 tabs 4RF Humalog KwikPen Insulin (insulin lispro) 80-150 24 units 151-200 30 units 201-250 38 units 251-299 40 units 300-349 42 units 350 and over 44 units Discontinued Reason: Doctor's Order 1 sliding scale dose subcut USEASDIRECTD 30 days 21 mL 2RF MDD maximum dose 132 units per day NS Coding Level of Care Code Est Pt Level 4 (96488) Complex EM visit Add On G2211 Diagnoses Uncontrolled type 2 diabetes mellitus with hyperglycemia E11.65
[2025-03-28 15:26] VITALS: BP 94/60; PULSE 98; O2SAT 96; BMI 35.2
[2025-03-28 15:38] LABS: Glucose, Whole Blood 160 mg/dL (60-115)
== END 2025-03-28 16:08 | disposition home or self-care (01) ==
LOC: HO.ENCR 15:14
PROVIDERS: PCP Physician Assistant; Visit Provider Physician Assistant Medical
DX: E11.65 Type 2 diabetes mellitus with hyperglycemia (principal)

== ENCOUNTER → 2025-03-28 15:14 | Outpatient (BNVA) | payer OTHER, SELFPAY | PROVIDERS: PCP Physician Assistant; Visit Provider Physician Assistant Medical | DX: E11.65 Type 2 diabetes mellitus with hyperglycemia (principal) | CPT/HCPCS: 82947; 99212 ==

== ENCOUNTER 2025-03-31 15:02 | Outpatient (AMB) | payer OTHER, SELFPAY ==
--- NOTE | 2025-03-31 15:21 | A.OFFPC_ITS ---
Vital Signs 03/31/25 15:23 Height 5 ft 10 in Weight 242 lb 6 oz BMI 34.8 BP 100/64 Blood Pressure Location Lt brachial Position Sitting Pulse 89 Pulse Source Pulse Oximeter Temp 97.3 F Temp Source Temporal Artery Scan Pulse Oximetry (%) 98 Oxygen Delivery Method Room Air Intake Visit Reasons: f/u DMII / HLD Intake Note: Patient is here to follow up on DM, HLD. Automotive Design Layout Drafter Required: No Welfare Centre Manager: Present Accompanied by: Spouse Allergies ibuprofen (From MOTRIN) Allergy (Intermediate, Verified 03/31/25 15:46) HIVES, Rash dapagliflozin (From Farxiga) Adverse Reaction (Intermediate, Verified 03/31/25 15:51) rash empagliflozin (From Jardiance) Adverse Reaction (Intermediate, Verified 03/31/25 15:51) rash Medication List - Last Reconciled 03/31/25 by Deejay Gonzalez PA-C aspirin (Adult Aspirin Regimen) 81 mg PO DAILY 90 days atorvastatin 80 mg PO BEDTIME 90 days bisacodyl (Dulcolax (bisacodyl)) 20 mg (4 x 5 mg) PO ONCE 1 day blood sugar diagnostic (FreeStyle Lite Strips) As directed four times a day blood-glucose meter (FreeStyle Lite Meter kit) As directed 3x/day blood-glucose sensor (FreeStyle Lana 3 Plus Sensor device) Use daily As directed to monitor glucose blood-glucose,neurology professor,cont (FreeStyle Lana 3 [place]) Use daily As directed to monitor blood glucose ciclopirox 0.77% 1 appl topical BID 4 weeks ezetimibe 10 mg PO DAILY insulin aspart U-100 (Novolog FlexPen U-100 Insulin aspart) 1 sliding scale dose subcut USEASDIRECTD insulin degludec (Tresiba FlexTouch U-200 insulin) 116 units subcut DAILY ketoconazole 2% 1 appl topical DAILY 4 weeks lancets (FreeStyle Lancets) Three times a day metformin ER 1,000 mg (2 x 500 mg) PO BID 90 days metoprolol succinate ER 100 mg PO DAILY 90 days miscellaneous medical supply 1 ea miscellaneous DAILY 99 days pantoprazole 40 mg PO QAM pen needle, diabetic As directed qid polyethylene glycol 3350 (Miralax) 238 grams PO ONCE sacubitril-valsartan 49-51 mg (Entresto) 0.5 tabs PO BID semaglutide (Ozempic) 2 mg (0.75 mL) subcut QWEEK spironolactone 25 mg PO DAILY tadalafil 20 mg PO DAILY 30 days Vascepa (icosapent ethyl) 2 grams (2 x 1 gram) PO BID NS Tobacco use date assessed: 03/31/25 Dental Screening Dental Screen Date: 09/24/24 HPI f/u DMII / HLD HPI Details Patient is a 49-year-old male here today for a follow-up visit Patient has a past medical history significant for diabetes, GERD, obesity,? systolic heart failure, asthma, mild obstructive sleep apnea, hyperlipidemia. -Concern--> The patient reports recurrent balanitis, which he associates with the use of Jardiance and Farxiga. He has experienced temporary relief with topical antifungal creams, but symptoms tend to recur. Discontinuation of Jardiance has led to improvement in symptoms over the past three days. .. Frequent loose stools: The patient has been experiencing diarrhea for the past four to six months, primarily occurring between 2 AM and 9 AM. He notes that the diarrhea is preceded by foul-smelling burps and is concerned it may be contributing to his low blood pressure. He drinks a significant amount of water daily to maintain hydration. His GI specialist made an adjustment in his PPI therapy to pantoprazole 40 mg which has been helpful for his upper GI symptoms. .. Type 2 diabetes:? Followed by [facility]. Has been having difficult to control type 2 diabetes. His short-acting insulin has been adjusted recently. He admits to being adherent to the use of all of his diabetic medication. He reports Humalog which much better than NovoLog for him. He reports his sugars are often high. Also has a new continues glucose monitor which has been helpful on glycemic control. Has upcoming appointment with his housekeeper cleaning cooking to discuss insulin regime // Asthma:? He does admit to having a daily cough though he attributes to his Jardiance though was causing GERD symptoms. Patient is followed by graphics editor and does have a cough variant asthma.? Continues on maintenance inhaler and daily basis. .. CHF:? Patient is followed by wood floor refinisher (dr. Lozano) [facility] Cardiology. He reports he recently was noted to have coronary artery disease causing his cardiomyopathy thus though Congestive heart failure. Was started on Farxiga 10 mg and high potency statin therapy. From a cardiovascular point of view has been stable.? He denies any chest discomforts, shortness of breath or rapid weight gain.? He does get by annual echocardiograms. [facility] Medical History (Updated 03/31/25 @ 15:55 by Deejay Gonzalez PA-C) Low-level of literacy Uncontrolled type 2 diabetes mellitus with hyperglycemia Annual physical exam Obesity (BMI 30-39.9) Colon cancer screening Obese Cardiomyopathy Gout of right knee History of [place] (myocardial infarction) GERD (gastroesophageal reflux disease) Asthma CHRIS (obstructive sleep apnea) Effusion, right knee Patellofemoral arthritis of right knee Acid reflux Hypertension Dyslipidemia Surgical History Hx of rotator cuff surgery History of ear surgery History of surgery on arm Hx of esophagogastroduodenoscopy Hx of colonoscopy Hx of knee surgery Family History Father Diabetes Dementia Mother Diabetes Social History Housing: Apartment Are you a primary team primary care physician to a significant other at home: No Do you presently have visiting nurse or other home services: No Alcohol intake: never Patient Tobacco Use Status: Former Tobacco user Tobacco use type: Cigarette e-Cigarette/Vaping Use: Never Used Second Hand Smoke Exposure: Yes Substance Use Type: Marijuana service: No Current occupational status: disabled Current occupational exposures/hazards: No Cognitive needs: No Hearing needs: Yes (hearing aide) Vision needs: No Questionnaire PHQ-9 Over the last 2 weeks, how often have you been bothered by any of the following problems? 1. Little interest or pleasure in doing things: not at all 2. Feeling down, depressed, or hopeless: not at all Source: Developed by Drs. Adarsh Beatty, Adina Faria, Tano Martinez and colleagues, with an educational oscar from [employer]. Thrive Questionnaire Date Thrive assessed: 09/24/24 BERNADETTE-7 AMB Questionnaire BERNADETTE-7 Date BERNADETTE - 7 assessed: 09/24/24 Source: Developed by Drs. Adarsh Beatty, Tano Bueno and colleagues, with an educational oscar from [employer]. Review of Systems Const Denies headache(s) Eyes Denies loss of vision ENT Denies vertigo, Denies dizziness, Denies headache(s) and Denies sore throat Card Denies chest pain, Denies leg edema and Denies lightheadedness Resp Denies cough, Denies hemoptysis and Denies wheezing GI Denies abdominal pain, Denies melena, Denies constipation, Denies diarrhea and Denies vomiting Denies dysuria, Denies urinary frequency and Denies urinary urgency Musc Denies arthralgias, Denies joint swelling, Denies numbness and Denies tingling Neuro Denies Abnormal speech present, Denies behavioral changes, Denies vertigo, Denies dizziness, Denies headache(s), Denies loss of vision, Denies memory loss, Denies numbness and Denies tingling Psych Denies anxiety, Denies behavioral changes, Denies depression, Denies memory loss and Denies panic attacks Rocky/Lymph Denies easy bleeding and Denies easy bruising Aller/Immun Denies wheezing Physical exam (Primary Care) Vital Signs: Last Vital Signs Temp 97.3 F 03/31/25 15:23 Pulse 89 03/31/25 15:23 BP 100/64 03/31/25 15:23 Pulse Ox 98 03/31/25 15:23 Oxygen Delivery Method Room Air 03/31/25 15:23 BMI result Body Mass Index 34.8 BMI Assessment/Plan discussion: High BMI High, discussed plan: lifestyle, weight reduction, dietary and physical activity Tobacco/Smoking Status: Tobacco use Status Tobacco use date assessed 03/31/25 03/31/25 15:35 Patient Tobacco Use Status Former Tobacco user 03/31/25 15:22 Tobacco use type Cigarette 03/31/25 15:22 e-Cigarette/Vaping Use Never Used 03/31/25 15:22 Thrive Assessment: Date of Thrive Assessment Date Thrive assessed 09/24/24 03/31/25 15:22 Const General: healthy appearing, no acute distress, alert and awake Nutritional Appearance: well nourished Orientation/consciousness: oriented to person, oriented to place and oriented to time HENMT Ears: TM's normal bilaterally General nose exam: Normal nasal mucous membranes and turbinates present Eyes Conjunctivae: conjunctivae normal Sclerae: sclerae normal Pupils: Equal, round and reactive pupils present Neck Neck: Yes no lymphadenopathy and Yes no JVD Thyroid: Thyroid normal Carotids: no bruits Resp Effort & Inspection: normal respiratory effort and not tachypneic Auscultation: no crackles, no rales, no rhonchi and no wheezes Cardio Rate: regular rate Rhythm: regular rhythm Heart sounds: no murmurs and normal S1 and S2 GI Palpation (GI): Soft to palpation, nontender, no hepatomegaly and no splenomegaly Auscultation: normal bowel sounds Skin General skin exam: no rashes or lesions noted and dry skin Neuro General: oriented to person, oriented to place and oriented to time Cranial nerves: Yes Equal, round and reactive pupils present Speech: No Abnormal speech present Gait exam (Neuro): Normal gait present Motor exam (neuro): no tremor noted Extrem Right upper extremity: full ROM Left upper extremity: full ROM Right lower extremity: full ROM; no edema Left lower extremity: full ROM; no edema Psych Mental Status: mental status grossly normal Speech and movement: Normal speech and movement present Affect: normal affect Attitude: cooperative Thought process: Normal thought process present Coding Level of Care Code Est Pt Level 4 (08647) Diagnoses Type 2 diabetes mellitus with other circulatory complication, with long-term current 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 E11.59; Z79.4 Diabetes mellitus type: type 2 Diabetes mellitus intermediate insulin use: with terminal gauger use Diabetes mellitus complication status: with circulatory complication Diabetes mellitus complication detail: with other circulatory complications Chronic systolic congestive heart failure, NYHA class 2 I50.22 Congestive heart failure type: systolic Congestive heart failure chronicity: chronic Moderate persistent asthma without complication J45.40 Asthma severity: moderate Asthma persistence: persistent Asthma complication type: uncomplicated Essential hypertension I10 Hypertension type: essential hypertension Class 1 obesity E66.811 Loose stools R19.5 Assessment & Plan Assessment & Plan (1) Diabetes: Code(s): E11.9 - Type 2 diabetes mellitus without complications Category: Medical Qualifiers: Diabetes mellitus type: type 2 Diabetes mellitus intermediate insulin use: with terminal gauger use Diabetes mellitus complication status: with circulatory complication Diabetes mellitus complication detail: with other circulatory complications Qualified Code(s): E11.59 - Type 2 diabetes mellitus with other circulatory complications; Z79.4 - senior living (current) 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 Plan: Patient's type 2 diabetes suboptimally controlled. Most recent A1c has improved 8. Endocrinology has been making adjustments in his insulin therapies. Of note does report Humalog has been more effective as short-acting preprandial agent and NovoLog. He does report having high sugars recently. He did just vacation in [place] and does admit to some dietary indiscretion.. He is working with [facility] on his glycemic control (2) CHF (congestive heart failure), NYHA class II: Code(s): I50.9 - Heart failure, unspecified Category: Medical Qualifiers: Congestive heart failure type: systolic Congestive heart failure chronicity: chronic Qualified Code(s): I50.22 - Chronic systolic (congestive) heart failure Plan: Patient continues to follow cardiology at [facility]. He was found to have coronary artery disease and class 2 congestive heart failure as a result. He is now on high dose statin therapy and was started on Farxiga 10 mg. He otherwise he is asymptomatic without any overt signs of fluid overload. (3) Asthma: Comment: THIS PATIENT WAS TREATED MAINLY FOR ASTHMA VARIANT COUGH, WHICH RESOLVED WITH THE FOLLOWING INHALERS. [place] : SEREVENT-50 1 INHALATION B.I.D. FLOVENT -100 1 INHALATION B.I.D.. CURRENTLY HE IS USING ONLY ONCE A DAY, AND IS STAYING FREE OF SYMPTOMS. HE SAY IS HE HARDLY NEEDS TO USE THE RESCUE INHALER/ Code(s): J45.909 - Unspecified asthma, uncomplicated Category: Medical Qualifiers: Asthma severity: moderate Asthma persistence: persistent Asthma complication type: uncomplicated Qualified Code(s): J45.40 - Moderate persistent asthma, uncomplicated Plan: Does report having a cough lately though he attributes to Jardiance causing his GERD symptoms . He will give it time without Jardiance to see if cough resolves He has not have to use any of his inhalers. He denies any nighttime awakenings with asthma symptoms. (4) Hypertension: Code(s): I10 - Essential (primary) hypertension Category: Medical Qualifiers: Hypertension type: essential hypertension Qualified Code(s): I10 - Essential (primary) hypertension Plan: Patient's blood pressure on the low side today in office could be related to his frequent loose stools. Will try to mitigate his loose stools with the Imodium in stool bulking agent. Will continue current dose of antihypertensive medication with goal blood pressure to remain below 140/90 (5) Class 1 obesity: Code(s): E66.811 - Obesity, class 1 Category: Medical Plan: Patient does understand his BMI is over 30 and will work on being more physically active and adapting to better eating habits to reduce his weight (6) Loose stools: Code(s): R19.5 - Other fecal abnormalities Category: Medical Plan: The patient has been experiencing diarrhea for the past four to six months, primarily occurring between 2 AM and 9 AM. The plan includes considering the use of Imodium or Loperamide to manage symptoms and evaluating dietary factors that may contribute to the condition. Orders: Orders Complete Blood Count no Diff Today E11.65 - Type 2 diabetes mellitus with hyperglycemia Microalbumin, Random (w Creat) Today I10 - Essential (primary) hypertension Comprehensive [place]. Panel Fast Today E11.65 - Type 2 diabetes mellitus with hyperglycemia Lipid Panel Today I50.22 - Chronic systolic (congestive) heart failure Prostate Specific Antigen Scr Today I50.22 - Chronic systolic (congestive) heart failure, Z12.5 - Encounter for screening for malignant neoplasm of prostate Medications: New loperamide 2 mg PO BEDTIME 90 caps 1RF loose stool 90 days R19.5 - Other fecal abnormalities, R19.7 - Diarrhea, unspecified Refilled metoprolol succinate ER 100 mg PO DAILY 90 tabs 2RF 90 days E11.65 - Type 2 diabetes mellitus with hyperglycemia, I50.22 - Chronic systolic (congestive) heart failure tadalafil administer approximately 30min before sexual activity; do not use more than 1 dose per 24hrs 20 mg PO DAILY 30 tabs 3RF sexual activity 30 days N52.8 - Other male erectile dysfunction
[2025-03-31 15:23] VITALS: BP 100/64; PULSE 89; TEMP 36.3; O2SAT 98; BMI 34.8
== END 2025-03-31 16:18 | disposition home or self-care (01) ==
LOC: HO.HMCH 15:02
PROVIDERS: PCP Physician Assistant; Visit Provider Physician Assistant
DX: E11.59 Type 2 diabetes mellitus with other circulatory complications (principal); Z79.4 Long term (current) 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; I50.22 Chronic systolic (congestive) heart failure; E66.811 Obesity, class 1; Z68.34 Body mass index [BMI] 34.0-34.9, adult; J45.40 Moderate persistent asthma, uncomplicated; I10 Essential (primary) hypertension; R19.5 Other fecal abnormalities

== ENCOUNTER → 2025-03-31 15:02 | Outpatient (BNVA) | payer OTHER, SELFPAY | PROVIDERS: PCP Physician Assistant; Visit Provider Physician Assistant | DX: E11.59 Type 2 diabetes mellitus with other circulatory complications (principal); E11.65 Type 2 diabetes mellitus with hyperglycemia; I11.0 Hypertensive heart disease with heart failure; I50.22 Chronic systolic (congestive) heart failure; J45.40 Moderate persistent asthma, uncomplicated; E66.811 Obesity, class 1; R19.5 Other fecal abnormalities; N52.8 Other male erectile dysfunction; Z79.4 Long term (current) 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; Z68.34 Body mass index [BMI] 34.0-34.9, adult | CPT/HCPCS: 99212 ==

== ENCOUNTER 2025-04-10 14:29 | Outpatient (AMB) | payer OTHER, SELFPAY ==
--- NOTE | 2025-04-10 16:02 | A.OFFVIS_ITS ---
Intake Intake Visit Reasons: 60 mins Animal Pathology Teacher Required: No Accompanied by: Self / Same As Patient Allergies ibuprofen (From MOTRIN) Allergy (Intermediate, Verified 03/31/25 15:46) HIVES, Rash dapagliflozin (From Farxiga) Adverse Reaction (Intermediate, Verified 03/31/25 15:51) rash empagliflozin (From Jardiance) Adverse Reaction (Intermediate, Verified 03/31/25 15:51) rash HPI Comprehensive Diabetes Asmnt Most Recent Diabetes Results: 2 Hemoglobin A1c 8.8 % 05/14/18 Microalb/Creat Ratio, (<30) 7.0 ug/mg cr 01/29/25 Cholesterol, (<200) 104 mg/dL 04/11/24 HDL Cholesterol, (>40) 25 mg/dL L 04/11/24 Triglycerides, (<150) 215 mg/dL H 04/11/24 Creatinine, (0.5-1.4) 1.02 mg/dL 01/29/25 BUN, (9-16) 16 mg/dL 01/29/25 Sodium, (135-145) 140 mmol/L 01/29/25 Potassium, (3.3-5.1) 4.5 mmol/L 01/29/25 Chloride, (96-108) 107 mmol/L 01/29/25 Carbon Dioxide, (22-29) 24 mmol/L 01/29/25 Calcium, (8.4-10.2) 9.0 mg/dL Δ 01/29/25 AST, (5-37) 28 U/L 01/29/25 ALT, (0-40) 42 U/L H 01/29/25 Total Protein, (6.5-8.0) 6.9 g/dL 01/29/25 Albumin, (3.5-5.0) 4.3 g/dL 01/29/25 COUNTS INCLUDE 234 BEDS AT THE [facility] Medical History (Updated 03/31/25 @ 15:55 by Deejay Gonzalez PA-C) Low-level of literacy Uncontrolled type 2 diabetes mellitus with hyperglycemia Annual physical exam Obesity (BMI 30-39.9) Colon cancer screening Obese Cardiomyopathy Gout of right knee History of [place] (myocardial infarction) GERD (gastroesophageal reflux disease) Asthma CHRIS (obstructive sleep apnea) Effusion, right knee Patellofemoral arthritis of right knee Acid reflux Hypertension Dyslipidemia Surgical History Hx of rotator cuff surgery History of ear surgery History of surgery on arm Hx of esophagogastroduodenoscopy Hx of colonoscopy Hx of knee surgery Family History Father Diabetes Dementia Mother Diabetes Social History Housing: Apartment Are you a primary account executive healthcare to a significant other at home: No Do you presently have visiting nurse or other home services: No Alcohol intake: never Patient Tobacco Use Status: Former Tobacco user Tobacco use type: Cigarette e-Cigarette/Vaping Use: Never Used Second Hand Smoke Exposure: Yes Substance Use Type: Marijuana service: No Current occupational status: disabled Current occupational exposures/hazards: No Cognitive needs: No Hearing needs: Yes (hearing aide) Vision needs: No Assessment & Plan Assessment & Plan (1) Uncontrolled type 2 diabetes mellitus with hyperglycemia: Code(s): E11.65 - Type 2 diabetes mellitus with hyperglycemia Plan: Personal Continuous Glucose Monitor: Patients CGM information reviewed, Pt uses Lana 3+ with reader, although patient has not had working Lana 3+ reader for several months. Patient given sample Lana 3+ reader at today's visit to restart Lana 3 sensors Reviewed patient's glucometer readings. All glucometer readings above target Patient denies drinking high carb drinks, or eating large carbohydrates at meals He is currently taking Ozempic 2 mg weekly Metformin 1000 mg b.i.d. Tresiba U 200 116 units daily NovoLog sliding scale before meals At today's visit we did not adjust insulin due to lack of glucose data. Patient will be following up with endocrine PRODUCT ACCOUNTANT in 2 weeks. At that visit there will be CGM data to review. Patient also complained of foul-smelling burps, diarrhea and acid reflux. He is seeing tarring machine operator, but we discussed at today's visit trying different GLP want to see if it helps symptoms. Message sent to endocrine PA to discuss at next visit In the past we have discussed insulin pump therapy, patient agreed to follow-up with adaptive physical educator in 6 weeks If glucose levels have not improved he is willing to discuss insulin pump therapy again Patient able to insert sensor independently at home without issue.? Portions of this note were created using voice recognition software, please excuse any words or phrases that may have been misinterpreted. Coding Level of Care Code Est Pt Level 1 (54030) Diagnoses Uncontrolled type 2 diabetes mellitus with hyperglycemia E11.65
== END 2025-04-10 16:06 | disposition home or self-care (01) ==
LOC: HO.ENCR 14:29
PROVIDERS: PCP Physician Assistant; Visit Provider Registered Nurse Diabetes Educator
DX: E11.65 Type 2 diabetes mellitus with hyperglycemia (principal)

== ENCOUNTER → 2025-04-10 14:29 | Outpatient (BNVA) | payer OTHER, SELFPAY | PROVIDERS: PCP Physician Assistant; Visit Provider Registered Nurse Diabetes Educator | DX: E11.65 Type 2 diabetes mellitus with hyperglycemia (principal) | CPT/HCPCS: 99211 ==

== ENCOUNTER 2025-04-14 15:37 | Outpatient (AMB) | payer OTHER, SELFPAY ==
[2025-04-14 15:56] VITALS: BP 110/64; PULSE 90; O2SAT 96; BMI 35.0
--- NOTE | 2025-04-14 15:56 | A.OFFVIS_ITS ---
Vital Signs 04/14/25 15:56 Height 5 ft 10 in Weight 243 lb 9.773 oz BMI 35.0 BP 110/64 Blood Pressure Location Rt brachial Position Sitting Pulse 90 Pulse Source Pulse Oximeter Pulse Oximetry (%) 96 Oxygen Delivery Method Room Air Intake Visit Reasons: dyspnea Intake Note: pt is here for follow up and states he is coughing all day with phlegm, when coughing he feels he cannot breath. Commercial Lending Relationship Manager Required: No Commercial Lending Relationship Manager Services: Commercial Lending Relationship Manager Offered & Declined Pump Attendant: Pump Attendant offered & declined Allergies ibuprofen (From MOTRIN) Allergy (Intermediate, Verified 04/14/25 16:23) HIVES, Rash dapagliflozin (From Farxiga) Adverse Reaction (Intermediate, Verified 04/14/25 16:23) rash empagliflozin (From Jardiance) Adverse Reaction (Intermediate, Verified 04/14/25 16:23) rash Medication List - Last Reconciled 04/14/25 by Glen Reynolds MD aspirin (Adult Aspirin Regimen) 81 mg PO DAILY 90 days atorvastatin 80 mg PO BEDTIME 90 days bisacodyl (Dulcolax (bisacodyl)) 20 mg (4 x 5 mg) PO ONCE 1 day blood pressure monitor As directed blood sugar diagnostic (FreeStyle Lite Strips) As directed four times a day blood-glucose meter (FreeStyle Lite Meter kit) As directed 3x/day blood-glucose sensor (FreeStyle Lana 3 Plus Sensor device) Use daily As directed to monitor glucose blood-glucose,director of marketing operations,cont (FreeStyle Lana 3 [place]) Use daily As directed to monitor blood glucose ciclopirox 0.77% 1 appl topical BID 4 weeks ezetimibe 10 mg PO DAILY insulin aspart U-100 (Novolog FlexPen U-100 Insulin aspart) 1 sliding scale dose subcut USEASDIRECTD insulin degludec (Tresiba FlexTouch U-200 insulin) 116 units subcut DAILY ketoconazole 2% 1 appl topical DAILY 4 weeks lancets (FreeStyle Lancets) Three times a day loperamide 2 mg PO BEDTIME 90 days metformin ER 1,000 mg (2 x 500 mg) PO BID 90 days metoprolol succinate ER 100 mg PO DAILY 90 days miscellaneous medical supply 1 ea miscellaneous DAILY 99 days pantoprazole 40 mg PO QAM pen needle, diabetic As directed qid polyethylene glycol 3350 (Miralax) 238 grams PO ONCE sacubitril-valsartan 49-51 mg (Entresto) 0.5 tabs PO BID semaglutide (Ozempic) 2 mg (0.75 mL) subcut QWEEK spironolactone 25 mg PO DAILY tadalafil 20 mg PO DAILY 30 days Vascepa (icosapent ethyl) 2 grams (2 x 1 gram) PO BID NS Do you need a note to return to daycare/school/sports/work: No HPI HPI dyspnea: Details: THIS 49 YEARS OLD GENTLEMAN IS COMING FOR, RECURRENCE OF RESPIRATORY SYMPTOMS. HE WAS LAST SEEN IN EARLY 2023. HE HAS BEEN TREATED FOR ASTHMA, MAINLY PRESENTING IN THE FORM OF RECURRENT COUGH. HE WAS ON SEREVENT-51 INHALATION B.I.D. AND FLOVENT-101 INHALATION B.I.D.. AND HIS COUGH WAS CONTROLLED ABOUT 8 MONTHS AGO HE RAN OUT OF THIS MEDICINE AND HAS NOT USED IT SINCE THEN. NOW MODE 4-6 WEEKS AGO HE STARTED HAVING COUGH. AND WITH COUGH HE BECOMES SOMEWHAT MORE SHORT OF BREATH. COUGH IS MOSTLY DRY. IF SOMEBODY IS SMOKING AT A DISTANCE. FROM HIM HE STARTS HAVING COUGH HE ALSO STARTS HAVING COUGH WITH ANY PHYSICAL EXERTION. 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 [facility]LY [facility] Medical History Low-level of literacy Uncontrolled type 2 diabetes mellitus with hyperglycemia Annual physical exam Obesity (BMI 30-39.9) Colon cancer screening Obese Cardiomyopathy Gout of right knee History of [place] (myocardial infarction) GERD (gastroesophageal reflux disease) Asthma CHRIS (obstructive sleep apnea) Effusion, right knee Patellofemoral arthritis of right knee Acid reflux Hypertension Dyslipidemia Surgical History Hx of rotator cuff surgery History of ear surgery History of surgery on arm Hx of esophagogastroduodenoscopy Hx of colonoscopy Hx of knee surgery Family History Father Diabetes Dementia Mother Diabetes Social History Housing: Apartment Are you a primary patient care provider to a significant other at home: No Do you presently have visiting nurse or other home services: No Alcohol intake: never Patient Tobacco Use Status: Former Tobacco user Tobacco use type: Cigarette e-Cigarette/Vaping Use: Never Used Second Hand Smoke Exposure: Yes Substance Use Type: Marijuana service: No Current occupational status: disabled Current occupational exposures/hazards: No Cognitive needs: No Hearing needs: Yes (hearing aide) Vision needs: No Review of Systems Const All systems reviewed & are unremarkable except as noted in HPI and below Denies snoring Eyes Reports no additional complaints ENT Reports no additional complaints Card Denies chest pain, Denies irregular heart rhythm and Denies leg edema Resp Reports cough, Denies snoring and Denies wheezing GI Reports heartburn (Acid reflux problem controlled with med) Reports no additional complaints Musc Reports no additional complaints Skin/Breast Reports system reviewed and no additional complaints, except as documented Neuro Reports no additional complaints Psych Reports no additional complaints Aller/Immun Denies wheezing Physical Exam Vital Signs: Last Vital Signs Pulse 90 04/14/25 15:56 BP 110/64 04/14/25 15:56 Pulse Ox 96 04/14/25 15:56 Oxygen Delivery Method Room Air 04/14/25 15:56 BMI result Body Mass Index 35.0 Const General: healthy appearing (EXCEPT FOR BEING OVERWEIGHT.), comfortable, no acute distress, alert and awake Orientation/consciousness: patient oriented x3 HEENT Head: Yes normal to inspection General nose exam: No nasal polyps present and No nasal discharge present Face and sinus: Yes sinuses nontender Mouth: oropharynx normal Throat: Yes posterior oropharynx normal Eyes General: appearance normal, both eyes and all related structures Neck Neck: Yes normal visual inspection, Yes no lymphadenopathy, Yes trachea midline and Yes no JVD Thyroid: Thyroid normal Chest Chest palpation & inspection: normal inspection of the chest, normal palpation of entire chest wall and no tenderness Resp Other: PERCUSSION NOTE IS RESONANT. BREATH SOUNDS ARE. EQUAL ON BOTH SIDES SOMEWHAT HARSH, BUT NO CREPITATIONS OR WHEEZES ARE HEARD. Cardio Palpation: normal PMI Rate: regular rate Rhythm: regular rhythm Heart sounds: no gallops and no murmurs Peripheral pulses: Peripheral pulses 2+ throughout GI Palpation (GI): Soft to palpation, nontender, No hepatosplenomegaly present, no masses and Other GI palpation findings present (Abdomen is slightly obese and protuberant) Auscultation: normal bowel sounds Back/Spine/Pelvis Thoracic/Lumbar Spine: thoracic and lumbar spine normal to inspection Skin General skin exam: no rashes or lesions noted Neuro General: patient oriented x3 and no focal motor deficits Cranial nerves: Yes CN's II-XII intact bilaterally Extrem General: Yes normal to inspection, Yes no clubbing, cyanosis or edema and Yes no calf tenderness Psych Appearance: grossly normal and well kempt Speech and movement: Normal speech and movement present Assessment & Plan Assessment & Plan (1) Asthma: Comment: THIS PATIENT WAS TREATED MAINLY FOR ASTHMA VARIANT COUGH, WHICH RESOLVED WITH THE FOLLOWING INHALERS. [place] : SEREVENT-50 1 INHALATION B.I.D. FLOVENT -100 1 INHALATION B.I.D.. HE HAD STOPPED USING THE INHALERS AFTER HE FINISHED HIS SUPPLY LAST YEAR. STARTING HAVING SAME SYMPTOMS ABOUT 4-6 WEEKS AGO MOST LIKELY FOLLOWING A NONSPECIFIC RESPIRATORY INFECTION. I THINK HIS COUGH IS DUE TO REACTIVE AIRWAYS / BRONCHIAL ASTHMA COMPONENT , TRIGGERED AFTER THE RESPIRATORY INFECTION. Code(s): J45.909 - Unspecified asthma, uncomplicated Category: Medical Qualifiers: Asthma severity: moderate Asthma persistence: persistent Asthma complication type: uncomplicated Qualified Code(s): J45.40 - Moderate persistent asthma, uncomplicated Plan: WE NEED TO START HIM ON LONG-ACTING BRONCHODILATOR/ICS COMBINATION. I WILL ORDER WIXELA 250-51 INHALATION B.I.D.. BUT IF NOT COVERED BY INSURANCE THEN WILL GO BACK TO SALMETEROL AND FLUTICASONE SEPARATELY I WOULD ALSO TREAT HIM WITH A COURSE OF Z-ESETR. (2) CHRIS (obstructive sleep apnea): Comment: HAD A SLEEP STUDY LAST YEAR . HIS SLEEP APNEA WAS MILD, RELATED TO HIS OBESITY- NO CPAP WAS NEEDED Code(s): G47.33 - Obstructive sleep apnea (adult) (pediatric) Category: Medical Plan: ENCOURAGED TO LOOSE WEIGHT AND SLEEP IN LATERAL POSITION. Medications: New fluticasone propion-salmeterol 250-50 mcg/dose (Wixela Inhub) 1 inh inhalation BID 60 ea 3RF ASTHMA 30 days azithromycin For 250 mg dose pack: take 500 mg today (day 1), then 250 mg for 4 days (days 2-5) PO 6 tabs 0RF Coding Level of Care Code Est Pt Level 3 (44211) Diagnoses Moderate persistent asthma without complication J45.40 Asthma severity: moderate Asthma persistence: persistent Asthma complication type: uncomplicated CHRIS (obstructive sleep apnea) G47.33
== END 2025-04-14 16:18 | disposition home or self-care (01) ==
LOC: HO.HPS 15:37
PROVIDERS: PCP Physician Assistant; Visit Provider Internal Medicine
DX: J45.40 Moderate persistent asthma, uncomplicated (principal); G47.33 Obstructive sleep apnea (adult) (pediatric)
CPT/HCPCS: 99213

== ENCOUNTER → 2025-04-14 15:37 | Outpatient (BNVA) | payer OTHER, SELFPAY | PROVIDERS: PCP Physician Assistant; Visit Provider Internal Medicine | DX: J45.40 Moderate persistent asthma, uncomplicated (principal); G47.33 Obstructive sleep apnea (adult) (pediatric); E66.9 Obesity, unspecified | CPT/HCPCS: 99212 ==

== ENCOUNTER 2025-05-09 14:58 | Outpatient (AMB) | payer OTHER, SELFPAY ==
--- NOTE | 2025-05-09 15:08 | MHC.OFFVIS ---
Vital Signs 05/09/25 15:17 05/09/25 15:57 Height 5 ft 10 in Weight 246 lb 4.101 oz BMI 35.3 BP 88/60 L 96/58 L Blood Pressure Location Lt brachial Position Sitting Pulse 102 H Pulse Source Pulse Oximeter Pulse Oximetry (%) 95 Oxygen Delivery Method Room Air Intake Visit Reasons: f/u familial hyperlipidemia Intake Note: Patient present today to follow up on Type 2 Diabetes Mellitus. Last Diabetic Eye exam: approx 2 months ago, [facility] Last Podiatry Visit: Does not see a Bead Forming Machine Set Up Operator Random Glucose: 205 mg/dl Hgb A1C: 9.5% 05/09/2025 Warehouse Receiving Supervisor Required: No Accompanied by: Spouse Allergies ibuprofen (From MOTRIN) Allergy (Intermediate, Verified 05/09/25 15:18) HIVES, Rash dapagliflozin (From Farxiga) Adverse Reaction (Intermediate, Verified 05/09/25 15:18) rash empagliflozin (From Jardiance) Adverse Reaction (Intermediate, Verified 05/09/25 15:18) rash HPI Comments Details: Patient is a 49-year-old with a significant past medical history hypertension, hyperlipidemia, type 2 diabetes, CHF and obesity presenting for diabetic management. Hemoglobin A1c 9.4% today up from 8.3%. He saw the certified clinical unit educator and was given a new [employer] 3 reader, but he is not using the sensor because they kept falling off. He shaved and tried to use a wrap around it, but it still fell off. He is very frustrated by it and does not want to use a CGM. He is using a glucometer. Reviewed glucometer data. Average glucose 321 Highest for 456 Lowest 147 Average 1.2 readings per day Current regimen: Tresiba U200 116 units daily. Ozempic 2 mg weekly Continue metformin ER 1000 mg twice daily. NovoLog sliding scale: 80-150 24 units 151-200 30 units 201-250 38 units 251-299 40 units 300-349 42 units 350 and over 44 units He endorses compliance with his medications. Past medication: Farxiga switch to Jardiance. Jardiance discontinued due to balanitis. Humalog caused injection site reaction. He is eating a lot of salads with protein and vegetables. He is only having 0 sugar juice. He drinks beer very rarely. He is a nonsmoker. hypoglycemia-denies episodes hyperglycemia-denies symptoms ROS: Constitutional: No unexplained weight loss, fever, chills, fatigue or night sweats. Eyes: No vision changes, blurry vision, double vision Respiratory: No shortness of breath, cough or sputum production. Cardiovascular: No chest pain, chest pressure or chest discomfort. No palpitations or pedal edema. Gastrointestinal: No nausea, vomiting or abdominal pain Neurologic: No headache, dizziness, syncope Endocrine: No cold or heat intolerance. No polyuria or polydipsia. Physical exam: Constitutional: Alert, in no distress. Eyes: Pupils are equal, round and reactive to light. Extraocular muscles intact. Neck: Supple, Full range of motion. No lymphadenopathy. Respiratory: Clear to auscultation. Cardiovascular: S1 S2 regular. No murmurs. Neurologic: No focal neurological deficits ON LICENSE OF [facility] Medical History Low-level of literacy Uncontrolled type 2 diabetes mellitus with hyperglycemia Annual physical exam Obesity (BMI 30-39.9) Colon cancer screening Obese Cardiomyopathy Gout of right knee History of [place] (myocardial infarction) GERD (gastroesophageal reflux disease) Asthma CHRIS (obstructive sleep apnea) Effusion, right knee Patellofemoral arthritis of right knee Acid reflux Hypertension Dyslipidemia Surgical History Hx of rotator cuff surgery History of ear surgery History of surgery on arm Hx of esophagogastroduodenoscopy Hx of colonoscopy Hx of knee surgery Family History Father Diabetes Dementia Mother Diabetes Social History Housing: Apartment Are you a primary personal care home administrator to a significant other at home: No Do you presently have visiting nurse or other home services: No Alcohol intake: never Patient Tobacco Use Status: Former Tobacco user Tobacco use type: Cigarette e-Cigarette/Vaping Use: Never Used Second Hand Smoke Exposure: Yes Substance Use Type: Marijuana service: No Current occupational status: disabled Current occupational exposures/hazards: No Cognitive needs: No Hearing needs: Yes (hearing aide) Vision needs: No Physical Exam Vital Signs: Last Vital Signs Pulse 102 H 05/09/25 15:17 BP 96/58 L 05/09/25 15:57 Pulse Ox 95 05/09/25 15:17 Oxygen Delivery Method Room Air 05/09/25 15:17 BMI result Body Mass Index 35.3 Results AMB Hemoglobin A1c AMB Hemoglobin A1c 9.5 % Last Edit by ELIDIA Almendarez on 05/09/25 15:38 Results Reviewed Results Reviewed: Laboratory Last Values Glucose (Clinic) 205 mg/dL (60-115) H 05/09/25 15:24 Hgb A1c (Clinic) 9.5 % (4.0-6.0) H 05/09/25 15:27 Laboratory Tests 04/11/24 01/29/25 01/29/25 08:04 06:16 06:19 Creatinine 1.02 Estimated GFR > 60 Triglycerides 215 H Cholesterol 104 LDL Cholesterol, Calc 36 HDL Cholesterol 25 L Urine Creatinine 127.62 Urine Microalbumin 9.0 Microalb/Creat Ratio 7.0 Assessment & Plan Assessment & Plan (1) Uncontrolled type 2 diabetes mellitus with hyperglycemia: Code(s): E11.65 - Type 2 diabetes mellitus with hyperglycemia Category: Medical Plan In summary this is a 49-year-old male with uncontrolled type 2 diabetes with hyperglycemia. Discussed pathophysiology of Type II Diabetes Mellitus with the patient in detail.? 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 Diabetic diet reinforced. If you experience low blood sugar, treat this by eating a chewable fruit candy like skittles or jelly beans (about 8 pieces), 4 ounces (1/2 cup) of fruit juice (not diet), 1 tablespoon of honey or 4 glucose tablets. If your blood sugar is under 50, take double the amount of one of the above. Recheck your blood sugar in 15 minutes. Continue Tresiba U200 116 units daily. He has not lost weight on Ozempic, and his blood sugars are poorly controlled despite the maximum dosage. Discussed with MD. Discontinue and start Mounjaro 5 mg weekly. Reviewed potential side effects with the patient. Continue metformin ER 1000 mg twice daily. Continue NovoLog sliding scale: 80-150 24 units 151-200 30 units 201-250 38 units 251-299 40 units 300-349 42 units 350 and over 44 units Advised patient to check blood sugars 4 times daily with glucometer. Not interested in retrying CGM-see notes in HPI. Follow up in 1 month. Orders: Orders AMB Hemoglobin A1c Today E11.59 - Type 2 diabetes mellitus with other circulatory complications, Z79.4 - terminal makeup operator (current) 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 Medications: New tirzepatide (Mounjaro) 5 mg (0.5 mL) subcut QWEEK 2 mL 0RF Discontinued semaglutide (Ozempic) Discontinued Reason: Doctor's Order 2 mg (0.75 mL) subcut QWEEK 3 mL 5RF Patient Instructions: Stop Ozempic and start Mounjaro 5 mg weekly 1 week after last dose of Ozempic Continue metformin ER 1000 mg twice daily. Tresiba U200 116 units daily. NovoLog sliding scale: 80-150 24 units 151-200 30 units 201-250 38 units 251-299 40 units 300-349 42 units 350 and over 44 units If you experience low blood sugar, treat this by eating a chewable fruit candy like skittles or jelly beans (about 8 pieces), 4 ounces (1/2 cup) of fruit juice (not diet), 1 tablespoon of honey or 4 glucose tablets. If your blood sugar is under 50, take double the amount of one of the above. Recheck your blood sugar in 15 minutes. Coding Level of Care Code Est Pt Level 4 (67800) Complex EM visit Add On G2211 Diagnoses Uncontrolled type 2 diabetes mellitus with hyperglycemia E11.65
[2025-05-09 15:17] VITALS: BP 88/60; PULSE 102; O2SAT 95; BMI 35.3
[2025-05-09 15:29] LABS: Glucose, Whole Blood 205 mg/dL (60-115)
[2025-05-09 15:57] VITALS: BP 96/58
== END 2025-05-09 16:23 | disposition home or self-care (01) ==
LOC: HO.ENCR 14:59
PROVIDERS: PCP Physician Assistant; Visit Provider Physician Assistant Medical
DX: E11.59 Type 2 diabetes mellitus with other circulatory complications (principal); Z79.4 Long term (current) 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; E11.65 Type 2 diabetes mellitus with hyperglycemia

== ENCOUNTER → 2025-05-09 14:58 | Outpatient (BNVA) | payer OTHER, SELFPAY | PROVIDERS: PCP Physician Assistant; Visit Provider Physician Assistant Medical | DX: E11.65 Type 2 diabetes mellitus with hyperglycemia (principal); E78.49 Other hyperlipidemia; Z79.4 Long term (current) 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 | CPT/HCPCS: 82947; 83036; 99212 ==

== ENCOUNTER 2025-05-19 15:57 | Outpatient (AMB) | payer OTHER, SELFPAY ==
[2025-05-19 16:06] VITALS: BP 104/70; PULSE 100; O2SAT 97; BMI 35.4
--- NOTE | 2025-05-19 16:06 | MHC.OFFVIS ---
Vital Signs 05/19/25 16:06 Height 5 ft 10 in Weight 246 lb 14.684 oz BMI 35.4 BP 104/70 Blood Pressure Location Lt brachial Position Sitting Pulse 100 Pulse Source Pulse Oximeter Pulse Oximetry (%) 97 Oxygen Delivery Method Room Air Intake Visit Reasons: Dyspnea Intake Note: pt is here for follow up and states breathing is good, Varnish Melter Required: No Sales Project Coordinator: Sales Project Coordinator offered & declined Allergies ibuprofen (From MOTRIN) Allergy (Intermediate, Verified 05/19/25 16:09) HIVES, Rash dapagliflozin (From Farxiga) Adverse Reaction (Intermediate, Verified 05/19/25 16:09) rash empagliflozin (From Jardiance) Adverse Reaction (Intermediate, Verified 05/19/25 16:09) rash Medication List - Last Reconciled 05/19/25 by Glen Reynolds MD aspirin (Adult Aspirin Regimen) 81 mg PO DAILY 90 days atorvastatin 80 mg PO BEDTIME 90 days bisacodyl (Dulcolax (bisacodyl)) 20 mg (4 x 5 mg) PO ONCE 1 day blood pressure monitor As directed blood sugar diagnostic (FreeStyle Lite Strips) As directed four times a day blood-glucose meter (FreeStyle Lite Meter kit) As directed 3x/day blood-glucose sensor (FreeStyle Laan 3 Plus Sensor device) Use daily As directed to monitor glucose blood-glucose,cost reduction engineer,cont (FreeStyle Lana 3 Pratt) Use daily As directed to monitor blood glucose ciclopirox 0.77% 1 appl topical BID 4 weeks ezetimibe 10 mg PO DAILY fluticasone propion-salmeterol 250-50 mcg/dose (Wixela Inhub) 1 inh inhalation BID 30 days insulin aspart U-100 (Novolog FlexPen U-100 Insulin aspart) 1 sliding scale dose subcut USEASDIRECTD insulin degludec (Tresiba FlexTouch U-200 insulin) 116 units subcut DAILY ketoconazole 2% 1 appl topical DAILY 4 weeks lancets (FreeStyle Lancets) Three times a day loperamide 2 mg PO BEDTIME 90 days metformin ER 1,000 mg (2 x 500 mg) PO BID 90 days metoprolol succinate ER 100 mg PO DAILY 90 days miscellaneous medical supply 1 ea miscellaneous DAILY 99 days omeprazole 20 mg PO DAILY pantoprazole 40 mg PO QAM pen needle, diabetic As directed qid polyethylene glycol 3350 (Miralax) 238 grams PO ONCE sacubitril-valsartan 49-51 mg (Entresto) 0.5 tabs PO BID spironolactone 25 mg PO DAILY tadalafil 20 mg PO DAILY 30 days tirzepatide (Mounjaro) 5 mg (0.5 mL) subcut QWEEK Vascepa (icosapent ethyl) 2 grams (2 x 1 gram) PO BID NS Do you need a note to return to daycare/school/sports/work: No HPI HPI Dyspnea: Details: 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 NOW THAT HE IS USING WIXELA 250-51 INHALATION B.I.D. HE IS FEELING MUCH BETTER, HE HAS NO RESIDUAL COUGH OR WHEEZING. HE CAN WALK AROUND AND DO IS WORK WITHOUT MUCH PROBLEMS. ON LICENSE OF [facility] Medical History Low-level of literacy Uncontrolled type 2 diabetes mellitus with hyperglycemia Annual physical exam Obesity (BMI 30-39.9) Colon cancer screening Obese Cardiomyopathy Gout of right knee History of [place] (myocardial infarction) GERD (gastroesophageal reflux disease) Asthma CHRIS (obstructive sleep apnea) Effusion, right knee Patellofemoral arthritis of right knee Acid reflux Hypertension Dyslipidemia Surgical History Hx of rotator cuff surgery History of ear surgery History of surgery on arm Hx of esophagogastroduodenoscopy Hx of colonoscopy Hx of knee surgery Family History Father Diabetes Dementia Mother Diabetes Social History Housing: Apartment Are you a primary career services assistant to a significant other at home: No Do you presently have visiting nurse or other home services: No Alcohol intake: never Patient Tobacco Use Status: Former Tobacco user Tobacco use type: Cigarette e-Cigarette/Vaping Use: Never Used Second Hand Smoke Exposure: Yes Substance Use Type: Marijuana service: No Current occupational status: disabled Current occupational exposures/hazards: No Cognitive needs: No Hearing needs: Yes (hearing aide) Vision needs: No Review of Systems Const All systems reviewed & are unremarkable except as noted in HPI and below Denies snoring Eyes Reports no additional complaints ENT Reports no additional complaints Card Denies chest pain, Denies irregular heart rhythm and Denies leg edema Resp Reports cough, Denies snoring and Denies wheezing GI Reports heartburn (Acid reflux problem controlled with med) Reports no additional complaints Musc Reports no additional complaints Skin/Breast Reports system reviewed and no additional complaints, except as documented Neuro Reports no additional complaints Psych Reports no additional complaints Aller/Immun Denies wheezing Physical Exam Vital Signs: Last Vital Signs Pulse 100 05/19/25 16:06 BP 104/70 05/19/25 16:06 Pulse Ox 97 05/19/25 16:06 Oxygen Delivery Method Room Air 05/19/25 16:06 BMI result Body Mass Index 35.4 Const General: healthy appearing (EXCEPT FOR BEING OVERWEIGHT.), comfortable, no acute distress, alert and awake Orientation/consciousness: patient oriented x3 HEENT Head: Yes normal to inspection General nose exam: No nasal polyps present and No nasal discharge present Face and sinus: Yes sinuses nontender Mouth: oropharynx normal Throat: Yes posterior oropharynx normal Eyes General: appearance normal, both eyes and all related structures Neck Neck: Yes normal visual inspection, Yes no lymphadenopathy, Yes trachea midline and Yes no JVD Thyroid: Thyroid normal Chest Chest palpation & inspection: normal inspection of the chest, normal palpation of entire chest wall and no tenderness Resp Other: PERCUSSION NOTE IS RESONANT. BREATH SOUNDS ARE. EQUAL ON BOTH SIDES SOMEWHAT HARSH, BUT NO CREPITATIONS OR WHEEZES ARE HEARD. Cardio Palpation: normal PMI Rate: regular rate Rhythm: regular rhythm Heart sounds: no gallops and no murmurs Peripheral pulses: Peripheral pulses 2+ throughout GI Palpation (GI): Soft to palpation, nontender, No hepatosplenomegaly present, no masses and Other GI palpation findings present (Abdomen is slightly obese and protuberant) Auscultation: normal bowel sounds Back/Spine/Pelvis Thoracic/Lumbar Spine: thoracic and lumbar spine normal to inspection Skin General skin exam: no rashes or lesions noted Neuro General: patient oriented x3 and no focal motor deficits Cranial nerves: Yes CN's II-XII intact bilaterally Extrem General: Yes normal to inspection, Yes no clubbing, cyanosis or edema and Yes no calf tenderness Psych Appearance: grossly normal and well kempt Speech and movement: Normal speech and movement present Assessment & Plan Assessment & Plan (1) Asthma: Comment: THIS GENTLEMAN HAS COUGH VARIANT BRONCHIAL ASTHMA/REACTIVE AIRWAYS HIS SYMPTOMS ARE NOW WELL CONTROLLED WITH USE OF WIXELA 250-50 1 INHALATION B.I.D. AND HE HAS ALBUTEROL HFA ON HAND BUT HARDLY NEEDS TO USE IT Code(s): J45.909 - Unspecified asthma, uncomplicated Category: Medical Qualifiers: Asthma complication type: uncomplicated Asthma persistence: persistent Asthma severity: moderate Qualified Code(s): J45.40 - Moderate persistent asthma, uncomplicated Plan: CONTINUE TO USE WIXELA 250-50 1 INHALATION B.I.D. AND ALBUTEROL HFA 2 PUFFS Q 6 HOURS ONLY P.R.N. (2) CHRIS (obstructive sleep apnea): Comment: HAD A SLEEP STUDY LAST YEAR . HIS SLEEP APNEA WAS MILD, RELATED TO HIS OBESITY- NO CPAP WAS NEEDED Code(s): G47.33 - Obstructive sleep apnea (adult) (pediatric) Category: Medical Plan: AGAIN ADVISED THAT HE NEEDS TO LOSE WEIGHT. ALSO TRY TO SLEEP IN LATERAL POSITION. Coding Level of Care Code Est Pt Level 3 (84418) Diagnoses Moderate persistent asthma without complication J45.40 Asthma complication type: uncomplicated Asthma persistence: persistent Asthma severity: moderate CHRIS (obstructive sleep apnea) G47.33
== END 2025-05-19 16:25 | disposition home or self-care (01) ==
LOC: HO.HPS 15:58
PROVIDERS: PCP Physician Assistant; Visit Provider Internal Medicine
DX: J45.40 Moderate persistent asthma, uncomplicated (principal); G47.33 Obstructive sleep apnea (adult) (pediatric)
CPT/HCPCS: 99213

== ENCOUNTER → 2025-05-19 15:57 | Outpatient (BNVA) | payer OTHER, SELFPAY | PROVIDERS: PCP Physician Assistant; Visit Provider Internal Medicine | DX: J45.991 Cough variant asthma (principal); G47.33 Obstructive sleep apnea (adult) (pediatric) | CPT/HCPCS: 99212 ==